=== PATIENT | male | born 1960 | race American Indian/Alaskan Native ===

== ENCOUNTER 2017-05-07 16:36 | Emergency (ER) | payer MEDICARE ==
--- NOTE | 2017-05-07 17:08 | Emergency Department Report ---
Entered by MIGUELITO AMANDA, acting as scribe for HENRY MC NP. Chief Complaint: Abdominal Pain Stated Complaint: STOMACH PAIN/CHEST ACID REFLEX Time Seen by Provider: 05/07/17 16:53 - HPI History of Present Illness: 56 year old male s non-toxic, non ill appearing, in no acute distress with c/o burning abd pain, epigastric pain, and chronic GERD. Aggravated while laying down. Patient reports abd pain and chest pain but denies fever, chills, SOB, HOWARD or dizziness, numbness, and tingling. - ROS Review of Systems: Reports abd pain, epigastric pain, GERD, chest pain Denies fever, chills, SOB, HOWARD or dizziness, numbness, and tingling - Exam Vital Signs: Vital Signs 05/07/17 16:44 Temperature 98.1 F Pulse Rate 87 Respiratory 18 Rate Blood Pressure 119/80 O2 Sat by Pulse 98 Oximetry Physical Exam: Constitutional: Non toxic appearing, NAD. Cardiovascular: Normal rate and rhythm with normal S1/S2 sounds. No reproducible Chest pain. Respiratory: No respiratory distress. Lung sounds clear to auscultation bilaterally. Abdomen: Slight abdominal distended. Positive bowel sounds. No hepatosplenomegaly was noted. No guarding or rebound tenderness, epigastric pain present. Negative psoas sign, negative caceres sign, negative McBurneys sign MSE screening note: Focused history and physical exam performed. Due to findings the following was ordered: Amylase, BMP, Cardiac Ck/CKBM, D-dimer, Hepatic panel, lipase, Pro-brain Natriuretic, and Troponin was ordered for patient. ED Disposition for MSE Condition: Stable This documentation as recorded by the scribe,MIGUELITO AMANDA,accurately reflects the service I personally performed and the decisions made by JESUSITA saenz MARTIN, LINDSEY.
[2017-05-07 18:16] LABS: Basophils % (Auto) 0.3 % (0.0-1.8); Hemoglobin 13.2 gm/dl (11.8-15.2); Mean Corpuscular HGB Conc 34 % (32-34); Mean Corpuscular Hemoglobin 31 pg (28-32); Mean Corpuscular Volume 90 fl (84-94); Platelet Count 169 K/mm3 (140-440); Red Blood Count 4.32 M/mm3 (3.65-5.03); Red Cell Distribution Width 14.2 % (13.2-15.2); White Blood Count 7.2 K/mm3 (4.5-11.0)
[2017-05-07] MEDS ORDERED: PEPCID PO ONE (18:24)
[2017-05-07] MEDS ORDERED: ZOFRAN IV ONE (18:25)
[2017-05-07] MEDS ORDERED: MORPHINE IV ONE (18:26)
[2017-05-07 18:39] LABS: Alanine Aminotransferase 20 units/L (7-56); Albumin 4.1 g/dL (3.9-5); Albumin/Globulin Ratio 1.4 %; Alkaline Phosphatase 75 units/L (35-129); Amylase 74 units/L (27-131); Anion Gap 18 mmol/L; BUN/Creatinine Ratio 14.44; Blood Urea Nitrogen 13 mg/dL (9-20); Calcium 9.2 mg/dL (8.4-10.2); Carbon Dioxide 26 mmol/L (22-30); Chloride 101.2 mmol/L (98-107); Creatine Kinase 421 units/L (55-170); Creatine Kinase MB 2.5 ng/mL (0.0-4.0); Glucose 87 mg/dL (75-100); Lipase 44 units/L (13-60); Potassium 4.3 mmol/L (3.6-5.0); Sodium 141 mmol/L (137-145); Total Protein 7.1 g/dL (6.3-8.2)
[2017-05-07 19:00] LABS: Bilirubin,Direct < 0.2 mg/dL (0-0.2); Bilirubin,Indirect 0.2 mg/dL
--- NOTE | 2017-05-07 19:15 | Emergency Department Report ---
ED Abdominal Pain HPI - General Chief Complaint: Abdominal Pain Stated Complaint: STOMACH PAIN/CHEST ACID REFLEX Time Seen by Provider: 05/07/17 18:20 Source: patient Mode of arrival: Ambulatory Limitations: No Limitations - History of Present Illness Initial Comments: 56-year-old male with past medical history of acid reflux, CHF presenting to the emergency room complaining of abdominal pain. pain started 1 day prior. No inciting factors. Pain is located in left upper quadrant and radiates towards epigastric area. Patient states he has had acid reflux for years and was supposed to follow up with GI however he has been lost to follow-up. Patient states he ran out of his antacids. Patient states pains are dull intermittent cramping. Pain improves with food, worse when he is hungry. Patient's requesting to eat in ED because he states that'll improve his pain. Patient denies midsternal chest pain. Patient denies pain radiates to the back. Patient denies: fever, chills, nausea, vomiting, diarrhea. Patient denies bloody stools. Patient states he has chronic leg swelling that has not been getting worse over the last weeks. Patient denies orthopnea, dyspnea on exertion, chest pain. MD Complaint: abdominal pain -: Gradual, days(s) Location: LUQ Radiation: epigastric Severity: mild Severity scale (0 -10): 5 Quality: cramping Consistency: intermittent Improves With: eating Worsens With: nothing Associated Symptoms: denies: nausea, vomiting, diarrhea, constipation, hematemesis, hematochezia, anorexia - Related Data Home Medications Medication Instructions Recorded Confirmed Last Taken Allopurinol [Zyloprim] 100 mg PO QDAY 04/16/16 04/16/16 Unknown Esomeprazole Magnesium [NexIUM] 40 mg PO QDAY 04/16/16 04/16/16 Unknown Fluticasone/Salmeterol [Advair 1 puff IH BID 04/16/16 04/16/16 Unknown Diskus 100-50 mcg] Furosemide [Lasix TAB] 80 mg PO QDAY 04/16/16 04/16/16 Unknown Previous Rx's Medication Instructions Recorded Last Taken Type Pantoprazole [Protonix] 40 mg PO QDAY #30 tablet 05/07/17 Unknown Rx Allergies Allergy/AdvReac Type Severity Reaction Status Date / Time No Known Allergies Allergy Unverified 04/15/16 12:49 ED Review of Systems ROS: Stated complaint: STOMACH PAIN/CHEST ACID REFLEX Other details as noted in HPI Comment: All other systems reviewed and negative Constitutional: denies: chills, fever Eyes: denies: eye pain, eye discharge, vision change ENT: denies: ear pain, throat pain Respiratory: denies: cough, shortness of breath, wheezing Cardiovascular: denies: chest pain, palpitations Endocrine: no symptoms reported Gastrointestinal: abdominal pain. denies: nausea, vomiting, diarrhea, constipation, hematemesis, hematochezia, other Genitourinary: denies: urgency, dysuria Musculoskeletal: denies: back pain, joint swelling, arthralgia Skin: denies: rash, lesions Neurological: denies: headache, weakness, paresthesias Psychiatric: denies: anxiety, depression Hematological/Lymphatic: denies: easy bleeding, easy bruising ED Past Medical Hx - Past Medical History Previous Medical History?: Yes Hx Hypertension: Yes Hx GERD: Yes Hx Psychiatric Treatment: Yes (Substance abuse) - Surgical History Past Surgical History?: No - Social History Smoking Status: Current Every Day Smoker - Medications Home Medications: Home Medications Medication Instructions Recorded Confirmed Last Taken Type Allopurinol [Zyloprim] 100 mg PO QDAY 04/16/16 04/16/16 Unknown History Esomeprazole Magnesium [NexIUM] 40 mg PO QDAY 04/16/16 04/16/16 Unknown History Fluticasone/Salmeterol [Advair 1 puff IH BID 04/16/16 04/16/16 Unknown History Diskus 100-50 mcg] Furosemide [Lasix TAB] 80 mg PO QDAY 04/16/16 04/16/16 Unknown History Pantoprazole [Protonix] 40 mg PO QDAY #30 tablet 05/07/17 Unknown Rx ED Physical Exam - General Limitations: No Limitations General appearance: alert, in no apparent distress - Head Head exam: Present: atraumatic, normocephalic - Eye Eye exam: Present: normal appearance - ENT ENT exam: Present: mucous membranes moist - Neck Neck exam: Present: normal inspection - Respiratory Respiratory exam: Present: normal lung sounds bilaterally. Absent: respiratory distress - Cardiovascular Cardiovascular Exam: Present: regular rate, normal rhythm. Absent: systolic murmur, diastolic murmur, rubs, gallop - GI/Abdominal GI/Abdominal exam: Present: soft, normal bowel sounds, other (pt has obsese abdomen, no fluid wave ). Absent: distended, tenderness, guarding, rebound, hyperactive bowel sounds, hypoactive bowel sounds, organomegaly, pulsatile mass - Rectal Rectal exam: Present: deferred - Extremities Exam Extremities exam: Present: normal inspection - Back Exam Back exam: Present: normal inspection - Neurological Exam Neurological exam: Present: alert, oriented X3 - Psychiatric Psychiatric exam: Present: normal affect, normal mood - Skin Skin exam: Present: warm, dry, intact, normal color. Absent: rash ED Course Vital Signs 05/07/17 05/07/17 05/07/17 16:44 17:37 17:41 Temperature 98.1 F Pulse Rate 87 82 81 Respiratory 18 28 H 18 Rate Blood Pressure 119/80 Blood Pressure [Right] O2 Sat by Pulse 98 99 100 Oximetry 05/07/17 05/07/17 05/07/17 17:46 17:51 18:01 Temperature Pulse Rate 79 79 Respiratory 12 14 29 H Rate Blood Pressure Blood Pressure [Right] O2 Sat by Pulse 100 100 92 Oximetry 05/07/17 05/07/17 05/07/17 18:11 18:21 18:31 Temperature Pulse Rate 77 81 76 Respiratory 23 19 19 Rate Blood Pressure Blood Pressure [Right] O2 Sat by Pulse 91 95 99 Oximetry 05/07/17 05/07/17 05/07/17 18:51 19:01 19:11 Temperature Pulse Rate 81 75 70 Respiratory 18 17 14 Rate Blood Pressure Blood Pressure [Right] O2 Sat by Pulse 96 86 97 Oximetry 05/07/17 05/07/17 05/07/17 19:21 19:31 19:41 Temperature Pulse Rate 78 77 74 Respiratory 18 18 16 Rate Blood Pressure Blood Pressure [Right] O2 Sat by Pulse 99 100 100 Oximetry 05/07/17 05/07/17 05/07/17 19:51 20:01 20:24 Temperature 98.1 F Pulse Rate 72 71 132 H Respiratory 18 17 12 Rate Blood Pressure Blood Pressure 132/86 [Right] O2 Sat by Pulse 91 98 98 Oximetry - Reevaluation(s) Reevaluation #1: 05/07/17 19:15 Patient resting comfortably. Reevaluation #2: 05/07/17 19:38 pt states discomfort has resolved, he agrees he is stable to dc home ED Medical Decision Making - Lab Data Result diagrams: 05/07/17 17:24 05/07/17 17:24 - EKG Data EKG shows normal: sinus rhythm, axis (upright ), intervals (normal : [place]. QRS ), QRS complexes (NORMAL ), ST-T waves (non specific T wave abnormality ) Rate: normal (86) - EKG Data When compared to previous EKG there are: no significant change Interpretation: no acute changes, nonspecific ST-T wave rody - Radiology Data Radiology results: image reviewed interpreted by me: no acute findings. No evidence of air under the diaphragm, or air-fluid levels. - Medical Decision Making 56 yo male sent into the emergency room complaining of left upper quadrant pain. Likely pain secondary to gastritis. I have lows suspicion for : ACS, Dissection, PNA, perforated ulcer. Pt admits this pain is similar to chronic reflux and gastritis. Pt agrees he stable to discharge home and follow-up with PCP, and GI. Patient verbalized understanding of return precautions. Critical care attestation.: If time is entered above; I have spent that time in minutes in the direct care of this critically ill patient, excluding procedure time. ED Disposition Clinical Impression: Gastritis, GERD (gastroesophageal reflux disease) Disposition: DC-01 TO HOME OR SELFCARE Is pt being admited?: No Does the pt Need Aspirin: No Condition: Stable Instructions: Gastritis (ED), Gastroesophageal Reflux in Children (ED) Prescriptions: Pantoprazole [Protonix] 40 mg PO QDAY #30 tablet Referrals: EMANUEL LEON JR, MD [Referring] - 3-5 Days PRIMARY CARE, [Primary Care Provider] - 3-5 Days Forms: Work/School Release Form(ED) Time of Disposition: 20:00
[2017-05-07 20:25] VITALS: BP 132/86
--- NOTE | 2017-05-08 07:25 | XRay Report ---
Abdominal series: History: Abdominal pain. Findings: No acute cardiopulmonary findings. No free intraperitoneal air. No bowel distention or wall thickening. Stool in colon. Impression: Essentially negative study.
== END 2017-05-07 20:23 | disposition home or self-care (01) ==
LOC: ED 16:36
DX: K29.70 Gastritis, unspecified, without bleeding (principal); K21.9 Gastro-esophageal reflux disease without esophagitis; I10 Essential (primary) hypertension; F17.200 Nicotine dependence, unspecified, uncomplicated
CPT/HCPCS: 36415; 74022; 80048; 80074; 82150; 82550; 82553; 83690; 83880; 84484; 85025; 93005; 93010; 96374; 96375; 99284; J2270; J2405

== ENCOUNTER 2017-05-28 22:45 | Emergency (ER) | payer MEDICARE ==
[2017-05-28] MEDS ORDERED: LIDOCAINE VISCOUS 2% PO ONE (23:04)
[2017-05-28] MEDS ORDERED: ALUM-MAG HYDROX-SIMETH 200-200-20MG/5ML PO ONE (23:05)
[2017-05-28] MEDS ORDERED: PEPCID PO ONE (23:05)
[2017-05-28 23:42] LABS: Basophils % (Auto) 0.4 % (0.0-1.8); Hematocrit 36.6 % (35.5-45.6); Hemoglobin 12.3 gm/dl (11.8-15.2); Mean Corpuscular HGB Conc 34 % (32-34); Mean Corpuscular Hemoglobin 31 pg (28-32); Mean Corpuscular Volume 93 fl (84-94); Platelet Count 176 K/mm3 (140-440); Red Blood Count 3.92 M/mm3 (3.65-5.03); Red Cell Distribution Width 14.7 % (13.2-15.2); White Blood Count 7.5 K/mm3 (4.5-11.0)
[2017-05-29 00:01] LABS: Lipase 46 units/L (13-60)
[2017-05-29 00:03] LABS: Alanine Aminotransferase 45 units/L (7-56); Albumin 3.9 g/dL (3.9-5); Albumin/Globulin Ratio 1.3 %; Alkaline Phosphatase 76 units/L (35-129); Amylase 66 units/L (27-131); Anion Gap 17 mmol/L; BUN/Creatinine Ratio 13.33; Blood Urea Nitrogen 12 mg/dL (9-20); Calcium 8.9 mg/dL (8.4-10.2); Carbon Dioxide 24 mmol/L (22-30); Chloride 101.8 mmol/L (98-107); Glucose 102 mg/dL (75-100); Lipase 46 units/L (13-60); Potassium 4.2 mmol/L (3.6-5.0); Sodium 139 mmol/L (137-145); Total Protein 6.9 g/dL (6.3-8.2)
[2017-05-29 00:04] LABS: Urine Drugs of Abuse Note Disclamer
[2017-05-29 00:10] LABS: Bilirubin,Direct < 0.2 mg/dL (0-0.2)
[2017-05-29 00:15] LABS: Bacteria,Urine 1+ /HPF (Negative); Bilirubin,Urine NEG (Negative); Blood,Urine MOD (Negative); Ketones,Urine NEG (Negative); Leukocyte Esterase,Urine SM (Negative); Mucus,Urine 1+ /HPF; Nitrite,Urine NEG (Negative); Protein,Urine <15 mg/dL mg/dL (Negative); Urobilinogen,Urine < 2.0 mg/dL (<2.0)
--- NOTE | 2017-05-29 04:27 | Emergency Department Report ---
HPI - General Chief Complaint: Abdominal Pain Time Seen by Provider: 05/29/17 02:06 - HPI HPI: This is a 56-year-old -French male presents to the emergency department with the complaint of acute on chronic acid reflux. He's been having a burning pain and sensation in the middle of the abdomen that sometimes will go up into the chest. Patient says that when he is sleeping sometimes he will have the acid come up into the back of his throat. He was recently here for similar symptoms and had an evaluation by [facility] and cardiology. He has been set up to have an appointment with gastroenterology but it is not until June. The patient is currently living at [place] and says that he needs prescriptions for [id number] medications for his acid reflux. He denies any shortness of breath, nausea, fever, back pain. No recent travel. ED Past Medical Hx - Past Medical History Hx Hypertension: Yes Hx GERD: Yes Hx Psychiatric Treatment: Yes (Substance abuse) - Social History Smoking Status: Current Every Day Smoker Substance Use Type: None - Medications Home Medications: Home Medications Medication Instructions Recorded Confirmed Last Taken Type Allopurinol [Zyloprim] 100 mg PO QDAY 04/16/16 05/21/17 05/20/17 History Esomeprazole Magnesium [NexIUM] 40 mg PO QDAY 04/16/16 05/21/17 05/20/17 History Fluticasone/Salmeterol [Advair 1 puff IH BID 04/16/16 05/21/17 05/20/17 History Diskus 100-50 mcg] Carvedilol [Coreg] 3.125 mg PO BID #60 tablet 05/23/17 Unknown Rx Furosemide [Lasix TAB] 40 mg PO QDAY #30 tablet 05/23/17 Unknown Rx Lisinopril [Zestril TAB] 2.5 mg PO QDAY #30 tab 05/23/17 Unknown Rx Nicotine [Habitrol] 14 mg TD Q24H #30 patch 05/23/17 Unknown Rx Potassium Chloride 10 meq PO QDAY #30 capsule.er 05/23/17 Unknown Rx Mag Hydrox/Al Hydrox/Simeth 10 ml PO BID PRN #1 bottle 05/29/17 Unknown Rx [Maalox Advanced Suspension] Pantoprazole [Protonix TAB] 40 mg PO QDAY #30 tablet 05/29/17 Unknown Rx ED Review of Systems ROS: Stated complaint: SEVERE ACID REFLUX Other details as noted in HPI Comment: All other systems reviewed and negative Constitutional: denies: chills, fever Eyes: denies: eye pain, eye discharge, vision change ENT: denies: ear pain, throat pain Respiratory: denies: cough, shortness of breath, wheezing Cardiovascular: denies: palpitations, edema Gastrointestinal: abdominal pain. denies: nausea Genitourinary: denies: urgency, dysuria Musculoskeletal: denies: back pain, joint swelling, arthralgia Skin: denies: rash, lesions Neurological: denies: headache, weakness, paresthesias Physical Exam - Physical Exam Vital Signs: Vital Signs 05/28/17 05/29/17 22:54 02:10 Temperature 98 F Pulse Rate 75 72 Respiratory 18 20 Rate Blood Pressure 137/85 Blood Pressure 109/74 [Left] O2 Sat by Pulse 97 99 Oximetry Physical Exam: GENERAL: The patient is well-developed well-nourished. HEENT: Normocephalic. Atraumatic. Extraocular motions are intact. Patient has moist mucous membranes. Pupils equal reactive to light bilaterally. NECK: Supple. Trachea is midline. CHEST/LUNGS: Clear to auscultation. There is no respiratory distress noted. HEART/CARDIOVASCULAR: Regular. There is no tachycardia. There is no gallop rub or murmur. Obese habitus. ABDOMEN: Abdomen is soft, nontender. Patient has normal bowel sounds. There is no abdominal distention. SKIN: Skin is warm and dry. NEURO: The patient is awake, alert, and oriented. The patient is cooperative. The patient has no focal neurologic deficits. The patient has normal speech. MUSCULOSKELETAL: There is no tenderness or deformity. There is no limitation range of motion. There is no evidence of acute injury. ED Course Vital Signs 05/28/17 05/29/17 22:54 02:10 Temperature 98 F Pulse Rate 75 72 Respiratory 18 20 Rate Blood Pressure 137/85 Blood Pressure 109/74 [Left] O2 Sat by Pulse 97 99 Oximetry ED Medical Decision Making - Lab Data Result diagrams: 05/28/17 23:26 05/28/17 23:26 - EKG Data -: EKG Interpreted by Me EKG shows normal: sinus rhythm (with PACs), axis, intervals, QRS complexes, ST- T waves Rate: normal - EKG Data When compared to previous EKG there are: previous EKG unavailable Interpretation: normal EKG - Radiology Data Radiology results: image reviewed interpreted by me: Chest x-ray did not show any acute process. Heart is normal shape and size. No effusions. No pneumothorax. No signs of pneumonia seen. - Medical Decision Making 56-year-old male presents to the emergency department with acute on chronic acid reflux. It affects him in the middle of the abdomen and goes up in the middle of his chest and sometimes he will even regurgitate some of the accident to the back of the throat. He was recently here and seen and had an echocardiogram and cardio consultation to rule out coronary artery disease as the cause of his discomfort. He is set up to have a gastroenterology follow-up and [place]. Today the patient was evaluated with physical exam, labs, imaging and EKG. EKG does not show any signs of ST elevation TN, ischemia or dysrhythmia. Labs are mostly unremarkable do not show any etiology of his symptoms. He does have a urine drug screen is positive for morbid she rates and cocaine. He was given a GI cocktail and upon reevaluation he is feeling improved. He needs prescriptions for any [id number] medications such as Maalox. Negative troponins 2. He has been encouraged to return to the emergency department with any worsening of his symptoms or any acute distress. - Differential Diagnosis GERD, TN, gastritis, esophagitis Critical Care Time: No Critical care attestation.: If time is entered above; I have spent that time in minutes in the direct care of this critically ill patient, excluding procedure time. ED Disposition Clinical Impression: Epigastric pain, Cocaine abuse GERD (gastroesophageal reflux disease) Qualifiers: Esophagitis presence: esophagitis presence not specified Qualified Code(s): K21.9 - Gastro-esophageal reflux disease without esophagitis Disposition: DC-01 TO HOME OR SELFCARE Is pt being admited?: No Condition: Stable Instructions: Gastroesophageal Reflux Disease (ED), Diet for Ulcers and Gastritis (ED) Additional Instructions: Please follow-up with a primary care physician in the next few days. Try to move up your gastroenterology appointment if possible. Return to the emergency department with any worsening of your symptoms or any acute distress. Prescriptions: Mag Hydrox/Al Hydrox/Simeth [Maalox Advanced Suspension] 10 ml PO BID PRN #1 bottle PRN Reason: Indigestion Pantoprazole [Protonix TAB] 40 mg PO QDAY #30 tablet Referrals: PRIMARY CARE, [Primary Care Provider] - 3-5 Days ANSELMO WILKS MD [Staff Physician] - 3-5 Days OSVALDO HERNANDEZ MD [Staff Physician] - 3-5 Days Time of Disposition: 04:31
[2017-05-29 04:44] VITALS: BP 124/75
--- NOTE | 2017-05-29 07:13 | XRay Report ---
CHEST XRAY, 2 VIEWS: History: Chest pain. Findings: There is mild diffuse interstitial coarsening. The lungs are hyperexpanded but clear. No infiltrate, pleural fluid or pneumothorax is detected. The cardiac silhouette and pulmonary vasculature are within normal limits for technique. The bony thorax is unremarkable. IMPRESSION: Changes consistent with COPD. No acute cardiopulmonary process.
== END 2017-05-29 04:35 | disposition home or self-care (01) ==
LOC: ED 22:45
DX: K21.9 Gastro-esophageal reflux disease without esophagitis (principal); R10.13 Epigastric pain; F14.10 Cocaine abuse, uncomplicated; I10 Essential (primary) hypertension; F17.200 Nicotine dependence, unspecified, uncomplicated
CPT/HCPCS: 36415; 71020; 80048; 80074; 80307; 81001; 82150; 83690; 84484; 85025; 93005; 93010

== ENCOUNTER 2017-08-06 16:23 | Emergency (ER) | payer MEDICARE ==
[2017-08-07] MEDS ORDERED: FLEXERIL PO ONE (02:07)
[2017-08-07] MEDS ORDERED: NORCO 7.5/325 PO ONE (02:07)
[2017-08-07] MEDS ORDERED: XYLOCAINE 1% MPF 5 mL INFILTRATI ONE (02:08)
--- NOTE | 2017-08-07 02:41 | Emergency Department Report ---
ED Lac[facility] Chief Complaint: Extremity Injury, Upper Stated Complaint: FINGER LAC ED Review of Systems ROS: Stated complaint: FINGER LAC Other details as noted in HPI ED Past Medical Hx - Past Medical History Hx Hypertension: Yes Hx GERD: Yes Hx Psychiatric Treatment: Yes (Substance abuse) - Surgical History Past Surgical History?: No - Social History Smoking Status: Current Every Day Smoker Substance Use Type: None - Medications Home Medications: Home Medications Medication Instructions Recorded Confirmed Last Taken Type Allopurinol [Zyloprim] 100 mg PO QDAY 04/16/16 05/21/17 05/20/17 History Esomeprazole Magnesium [NexIUM] 40 mg PO QDAY 04/16/16 05/21/17 05/20/17 History Fluticasone/Salmeterol [Advair 1 puff IH BID 04/16/16 05/21/17 05/20/17 History Diskus 100-50 mcg] Carvedilol [Coreg] 3.125 mg PO BID #60 tablet 05/23/17 Unknown Rx Furosemide [Lasix TAB] 40 mg PO QDAY #30 tablet 05/23/17 Unknown Rx Lisinopril [Zestril TAB] 2.5 mg PO QDAY #30 tab 05/23/17 Unknown Rx Nicotine [Habitrol] 14 mg TD Q24H #30 patch 05/23/17 Unknown Rx Potassium Chloride 10 meq PO QDAY #30 capsule.er 05/23/17 Unknown Rx Mag Hydrox/Al Hydrox/Simeth 10 ml PO BID PRN #1 bottle 05/29/17 Unknown Rx [Maalox Advanced Suspension] Pantoprazole [Protonix TAB] 40 mg PO QDAY #30 tablet 05/29/17 Unknown Rx Cephalexin [Keflex] 500 mg PO Q12HR #10 cap 08/07/17 Unknown Rx Laceration Physical Exam - Exam General: Vital signs noted. No distress. Alert and acting appropriately. ED Course Vital Signs 08/06/17 16:43 Temperature 98 F Pulse Rate 90 Respiratory 18 Rate Blood Pressure 112/79 O2 Sat by Pulse 96 Oximetry - Laceration /Wound Repair Right Posterior Distal Finger Wound Location: upper extremity (right middle finger) Wound Length (cm): 2 Wound's Depth, Shape: superficial Wound Explored: clean Irrigated w/ Saline (ccs): 50 Betadine Prep?: Yes Anesthesia: 1% Lidocaine Volume Anesthetic (ccs): 5 Wound Debrided: minimal Wound Repaired With: sutures Suture Size/Type: 5:0, proline Number of Sutures: 3 Layer Closure?: No Sterile Dressing Applied?: Yes Progress: patient tolerated procedure well Critical care attestation.: If time is entered above; I have spent that time in minutes in the direct care of this critically ill patient, excluding procedure time. ED Disposition Clinical Impression: Laceration of finger of right hand Disposition: DC-01 TO HOME OR SELFCARE Condition: Stable Instructions: Finger Laceration (ED) Additional Instructions: Please return within 7-10 days for suture removal Prescriptions: Cephalexin [Keflex] 500 mg PO Q12HR #10 cap Referrals: PRIMARY CARE, [Primary Care Provider] - 2-3 Days
[2017-08-07] MEDS ORDERED: TRIPLE ANTIBIOTIC TP ONE (04:03)
--- NOTE | 2017-08-07 04:56 | XRay Report ---
FINAL REPORT PROCEDURE: XR FINGER(S) 2+V RT TECHNIQUE: RIGHT middle finger radiographs, including AP, lateral, and oblique views. HISTORY: laceration, swelling COMPARISON: No prior studies are available for comparison. FINDINGS: Fracture (s) and/or Dislocation(s): None . Alignment: Normal. Joint space(s): Normal . Soft tissues: Normal . Bone mineralization: Normal . Foreign bodies: None . IMPRESSION: Normal Examination
[2017-08-07 05:11] VITALS: BP 114/82
== END 2017-08-07 04:49 | disposition home or self-care (01) ==
LOC: ED 16:23
DX: S61.212A Laceration without foreign body of right middle finger without damage to nail, initial encounter (principal); I10 Essential (primary) hypertension; K21.9 Gastro-esophageal reflux disease without esophagitis; F17.200 Nicotine dependence, unspecified, uncomplicated; W45.8XXA Other foreign body or object entering through skin, initial encounter; Y93.89 Activity, other specified; Y92.89 Other specified places as the place of occurrence of the external cause; Y99.8 Other external cause status
CPT/HCPCS: A6250

== ENCOUNTER 2017-08-15 10:45 | Emergency (ER) | payer MEDICARE ==
[2017-08-15 11:02] VITALS: BP 126/82
--- NOTE | 2017-08-15 16:17 | Emergency Department Report ---
Suture/Staple Removal - [facility] Chief Complaint: Laceration/Recheck/Suture Stated Complaint: REMOVAL OF STITCHES FROM MIDDLE FINGER Time Seen by Provider: 08/15/17 15:54 When Sutures or [place] Placed: 8-10 Days Ago Wound Location: right middle finger no drainage no erythema rom intact ED Review of Systems ROS: Stated complaint: REMOVAL OF STITCHES FROM MIDDLE FINGER Other details as noted in HPI Constitutional: denies: chills, fever Eyes: denies: eye pain, eye discharge, vision change ENT: denies: ear pain, throat pain Respiratory: denies: cough, shortness of breath, wheezing Cardiovascular: denies: chest pain, palpitations Endocrine: no symptoms reported Gastrointestinal: denies: abdominal pain, nausea, diarrhea Genitourinary: denies: urgency, dysuria Musculoskeletal: denies: back pain, joint swelling, arthralgia Skin: denies: rash, lesions Neurological: denies: headache, weakness, paresthesias Psychiatric: denies: anxiety, depression Hematological/Lymphatic: denies: easy bleeding, easy bruising ED Past Medical Hx - Past Medical History Previous Medical History?: Yes Hx Hypertension: Yes Hx GERD: Yes Hx Psychiatric Treatment: Yes (Substance abuse) - Surgical History Past Surgical History?: No - Social History Smoking Status: Current Every Day Smoker Substance Use Type: None - Medications Home Medications: Home Medications Medication Instructions Recorded Confirmed Last Taken Type Allopurinol [Zyloprim] 100 mg PO QDAY 04/16/16 05/21/17 05/20/17 History Esomeprazole Magnesium [NexIUM] 40 mg PO QDAY 04/16/16 05/21/17 05/20/17 History Fluticasone/Salmeterol [Advair 1 puff IH BID 04/16/16 05/21/17 05/20/17 History Diskus 100-50 mcg] Carvedilol [Coreg] 3.125 mg PO BID #60 tablet 05/23/17 Unknown Rx Furosemide [Lasix TAB] 40 mg PO QDAY #30 tablet 05/23/17 Unknown Rx Lisinopril [Zestril TAB] 2.5 mg PO QDAY #30 tab 05/23/17 Unknown Rx Nicotine [Habitrol] 14 mg TD Q24H #30 patch 05/23/17 Unknown Rx Potassium Chloride 10 meq PO QDAY #30 capsule.er 05/23/17 Unknown Rx Mag Hydrox/Al Hydrox/Simeth 10 ml PO BID PRN #1 bottle 05/29/17 Unknown Rx [Maalox Advanced Suspension] Pantoprazole [Protonix TAB] 40 mg PO QDAY #30 tablet 05/29/17 Unknown Rx Cephalexin [Keflex] 500 mg PO Q12HR #10 cap 08/07/17 Unknown Rx Suture Removal Exam - Exam General: Vital signs noted. No distress. Alert and acting appropriately. Wound: No Pathologic Erythema, No Tenderness, No Drainage, No Pus, No Wound Dehiscence Other Systems: All other systems reviewed and are unremarkable. ED Course Vital Signs 08/15/17 10:59 Temperature 98 F Pulse Rate 86 Respiratory 18 Rate Blood Pressure 126/82 O2 Sat by Pulse 99 Oximetry ED Recheck MDM - Medical Decision Making right finger sutures x 3 removed intact wound healed edges well approximated no drainage no symptoms of infection Critical care attestation.: If time is entered above; I have spent that time in minutes in the direct care of this critically ill patient, excluding procedure time. ED Disposition Clinical Impression: Visit for suture removal Disposition: DC-01 TO HOME OR SELFCARE Is pt being admited?: No Does the pt Need Aspirin: No Condition: Good Referrals: PRIMARY CARE, [Primary Care Provider] - 3-5 Days Forms: Work/School Release Form(ED) Time of Disposition: 16:16
== END 2017-08-15 16:25 | disposition home or self-care (01) ==
LOC: ED 10:45
DX: S61.212D Laceration without foreign body of right middle finger without damage to nail, subsequent encounter (principal)

== ENCOUNTER 2017-09-17 16:42 | Emergency (ER) | payer MEDICARE ==
[2017-09-17 17:39] LABS: Urine Drugs of Abuse Note Disclamer
[2017-09-17 17:49] LABS: Basophils % (Auto) 0.6 % (0.0-1.8); Hemoglobin 12.9 gm/dl (11.8-15.2); Mean Corpuscular HGB Conc 34 % (32-34); Mean Corpuscular Hemoglobin 32 pg (28-32); Mean Corpuscular Volume 93 fl (84-94); Platelet Count 163 K/mm3 (140-440); Red Blood Count 4.07 M/mm3 (3.65-5.03); Red Cell Distribution Width 15.1 % (13.2-15.2); White Blood Count 8.7 K/mm3 (4.5-11.0)
[2017-09-17 17:54] LABS: Bacteria,Urine 1+ /HPF (Negative); Bilirubin,Urine NEG (Negative); Blood,Urine MOD (Negative); Ketones,Urine NEG (Negative); Leukocyte Esterase,Urine NEG (Negative); Mucus,Urine 3+ /HPF; Nitrite,Urine NEG (Negative); Protein,Urine <15 mg/dL mg/dL (Negative)
[2017-09-17 18:12] LABS: Anion Gap 19 mmol/L; BUN/Creatinine Ratio 13; Blood Urea Nitrogen 10 mg/dL (9-20); Calcium 8.7 mg/dL (8.4-10.2); Carbon Dioxide 23 mmol/L (22-30); Chloride 103.9 mmol/L (98-107); Glucose 149 mg/dL (75-100); Potassium 3.7 mmol/L (3.6-5.0); Sodium 142 mmol/L (137-145)
[2017-09-18] MEDS ORDERED: PROVENTIL IH ONE (03:05)
[2017-09-18] MEDS ORDERED: ATROVENT IH ONE (03:05)
--- NOTE | 2017-09-18 03:08 | Emergency Department Report ---
ED Psych HPI - General Chief Complaint: Psych Stated Complaint: MED REACTION, DEPRESSION/VOICES Time Seen by Provider: 09/18/17 02:44 Source: patient Mode of arrival: Ambulatory - History of Present Illness MD Complaint: suicidal ideation -: unknown Associated Psychiatric Symptoms: auditory hallucinations History of same: Yes Quality: intermittent Improves With: medication Worsens With: achohol, drug use Context: recent alcohol abuse, recent drug abuse - Related Data Home Medications Medication Instructions Recorded Confirmed Last Taken Allopurinol [Zyloprim] 100 mg PO QDAY 04/16/16 09/17/17 05/20/17 Esomeprazole Magnesium [NexIUM] 40 mg PO QDAY 04/16/16 09/17/17 05/20/17 Fluticasone/Salmeterol [Advair 1 puff IH BID 04/16/16 09/17/17 05/20/17 Diskus 100-50 mcg] Previous Rx's Medication Instructions Recorded Last Taken Type Carvedilol [Coreg] 3.125 mg PO BID #60 tablet 05/23/17 Unknown Rx Furosemide [Lasix TAB] 40 mg PO QDAY #30 tablet 05/23/17 Unknown Rx Lisinopril [Zestril TAB] 2.5 mg PO QDAY #30 tab 05/23/17 Unknown Rx Nicotine [Habitrol] 14 mg TD Q24H #30 patch 05/23/17 Unknown Rx Potassium Chloride 10 meq PO QDAY #30 capsule.er 05/23/17 Unknown Rx Mag Hydrox/Aluminum Hyd/Simeth 10 ml PO BID PRN #1 bottle 05/29/17 Unknown Rx [Maalox Advanced Suspension] Pantoprazole [Protonix TAB] 40 mg PO QDAY #30 tablet 05/29/17 Unknown Rx Cephalexin [Keflex] 500 mg PO Q12HR #10 cap 08/07/17 Unknown Rx Allergies Allergy/AdvReac Type Severity Reaction Status Date / Time No Known Allergies Allergy Unverified 08/15/17 11:01 ED Review of Systems ROS: Stated complaint: MED REACTION, DEPRESSION/VOICES Other details as noted in HPI Constitutional: denies: chills, fever Eyes: denies: eye pain, eye discharge, vision change ENT: denies: ear pain, throat pain Respiratory: denies: cough, shortness of breath, wheezing Cardiovascular: denies: chest pain, palpitations Endocrine: no symptoms reported Gastrointestinal: denies: abdominal pain, nausea, diarrhea Genitourinary: denies: urgency, dysuria Musculoskeletal: denies: back pain, joint swelling, arthralgia Skin: denies: rash, lesions Neurological: denies: headache, weakness, paresthesias Psychiatric: denies: anxiety, depression Hematological/Lymphatic: denies: easy bleeding, easy bruising ED Past Medical Hx - Past Medical History Previous Medical History?: Yes Hx Hypertension: Yes Hx GERD: Yes Hx Psychiatric Treatment: Yes (Substance abuse) - Surgical History Past Surgical History?: No - Social History Smoking Status: Current Every Day Smoker Substance Use Type: Alcohol, Cocaine - Medications Home Medications: Home Medications Medication Instructions Recorded Confirmed Last Taken Type Allopurinol [Zyloprim] 100 mg PO QDAY 04/16/16 09/17/17 05/20/17 History Esomeprazole Magnesium [NexIUM] 40 mg PO QDAY 04/16/16 09/17/17 05/20/17 History Fluticasone/Salmeterol [Advair 1 puff IH BID 04/16/16 09/17/17 05/20/17 History Diskus 100-50 mcg] Carvedilol [Coreg] 3.125 mg PO BID #60 tablet 05/23/17 09/17/17 Unknown Rx Furosemide [Lasix TAB] 40 mg PO QDAY #30 tablet 05/23/17 09/17/17 Unknown Rx Lisinopril [Zestril TAB] 2.5 mg PO QDAY #30 tab 05/23/17 09/17/17 Unknown Rx Nicotine [Habitrol] 14 mg TD Q24H #30 patch 05/23/17 09/17/17 Unknown Rx Potassium Chloride 10 meq PO QDAY #30 capsule.er 05/23/17 09/17/17 Unknown Rx Mag Hydrox/Aluminum Hyd/Simeth 10 ml PO BID PRN #1 bottle 05/29/17 09/17/17 Unknown Rx [Maalox Advanced Suspension] Pantoprazole [Protonix TAB] 40 mg PO QDAY #30 tablet 05/29/17 09/17/17 Unknown Rx Cephalexin [Keflex] 500 mg PO Q12HR #10 cap 08/07/17 09/17/17 Unknown Rx ED Physical Exam - General Limitations: No Limitations General appearance: alert, in no apparent distress - Head Head exam: Present: atraumatic, normocephalic - Eye Eye exam: Present: normal appearance - ENT ENT exam: Present: mucous membranes moist - Neck Neck exam: Present: normal inspection - Respiratory Respiratory exam: Present: normal lung sounds bilaterally, wheezes. Absent: accessory muscle use, decreased breath sounds - Cardiovascular Cardiovascular Exam: Present: regular rate, normal rhythm. Absent: systolic murmur, diastolic murmur, rubs, gallop - GI/Abdominal GI/Abdominal exam: Present: soft, normal bowel sounds - Rectal Rectal exam: Present: deferred - Extremities Exam Extremities exam: Present: normal inspection - Back Exam Back exam: Present: normal inspection - Neurological Exam Neurological exam: Present: alert, oriented X3 - Psychiatric Psychiatric exam: Present: normal affect, normal mood - Skin Skin exam: Present: warm, dry, intact, normal color. Absent: rash ED Course Vital Signs 09/17/17 17:08 Temperature 97.6 F Pulse Rate 65 Respiratory 16 Rate Blood Pressure 119/71 O2 Sat by Pulse 97 Oximetry ED Medical Decision Making - Lab Data Result diagrams: 09/17/17 17:19 09/17/17 17:19 Critical care attestation.: If time is entered above; I have spent that time in minutes in the direct care of this critically ill patient, excluding procedure time. ED Disposition Clinical Impression: Suicidal ideation, Cocaine abuse, Alcohol abuse, Medical clearance for psychiatric admission Disposition: DC/TX-70 ANOTHER TYPE HLTHCARE Is pt being admited?: Yes Does the pt Need Aspirin: No Condition: Stable Referrals: BARTOLO FLORES MD [Other] - 3-5 Days Time of Disposition: 07:15 (anchor here to evaluate and admit pt)
--- NOTE | 2017-09-18 03:38 | XRay Report ---
FINAL REPORT EXAM: XR CHEST 1V AP HISTORY: SOB COMPARISON: None available. FINDINGS: Frontal view(s) of the chest obtained. Heart borderline enlarged. Shallow inspiration. No gross consolidation or effusion. No pneumothorax. IMPRESSION: Heart borderline enlarged. Lungs are grossly clear.
--- NOTE | 2017-09-18 22:37 | Consultation ---
History of Present Illness - Reason for Consult Reason for consult: recently missed invega sustenna shot Medications and Allergies Allergies Allergy/AdvReac Type Severity Reaction Status Date / Time No Known Allergies Allergy Unverified 08/15/17 11:01 Home Medications Medication Instructions Recorded Confirmed Last Taken Type Allopurinol [Zyloprim] 100 mg PO QDAY 04/16/16 09/17/17 05/20/17 History Esomeprazole Magnesium [NexIUM] 40 mg PO QDAY 04/16/16 09/17/17 05/20/17 History Fluticasone/Salmeterol [Advair 1 puff IH BID 04/16/16 09/17/17 05/20/17 History Diskus 100-50 mcg] Carvedilol [Coreg] 3.125 mg PO BID #60 tablet 05/23/17 09/17/17 Unknown Rx Furosemide [Lasix TAB] 40 mg PO QDAY #30 tablet 05/23/17 09/17/17 Unknown Rx Lisinopril [Zestril TAB] 2.5 mg PO QDAY #30 tab 05/23/17 09/17/17 Unknown Rx Nicotine [Habitrol] 14 mg TD Q24H #30 patch 05/23/17 09/17/17 Unknown Rx Potassium Chloride 10 meq PO QDAY #30 capsule.er 05/23/17 09/17/17 Unknown Rx Mag Hydrox/Aluminum Hyd/Simeth 10 ml PO BID PRN #1 bottle 05/29/17 09/17/17 Unknown Rx [Maalox Advanced Suspension] Pantoprazole [Protonix TAB] 40 mg PO QDAY #30 tablet 05/29/17 09/17/17 Unknown Rx Cephalexin [Keflex] 500 mg PO Q12HR #10 cap 08/07/17 09/17/17 Unknown Rx Mental Status Exam - Vital signs Last Vital Signs Temp 98.9 F 09/18/17 19:55 Pulse 55 L 09/18/17 19:55 Resp 16 09/18/17 19:55 BP 121/84 09/18/17 19:55 Pulse Ox 98 09/18/17 19:55 Results Result Diagrams: 09/17/17 17:19 09/17/17 17:19 All other labs normal. Assessment and Plan Assessment and plan: CHIEF COMPLAINT IN PATIENTS WORDS: missed my invega shot HISTORY OF PRESENT ILLNESS REQUIRING ADMISSION TO INPATIENT LEVEL OF CARE: (Describe the onset of Illness, Intensity of Symptoms, and Circumstances Leading to Admission) This is a 56-year-old male who presents to [facility] after missing his invega sustenna shot and subsequently having increased sleep disturbance and psychotic symptoms. PSYCHIATRIC REVIEW OF SYSTEMS: Depression: poor sleep onset Psychosis: +AH Anxiety/ OCD/ PTSD: nightmares Suicidality: denies SI Violent/ Aggressive Behavior: None reported Functional Impairment: difficulty remaining independent in his snf CURRENT MEDICATIONS: ( Psychiatric and Non-psychiatric ) Invega Sustenna Vistaril ALLERGIES: NKDA PAST PSYCHIATRIC HISTORY: ( Prior Treatment, Precipitating Factors, Diagnosis, and Course of Treatment ) Inpatient: multiple previous hospitalizations Outpatient: [facility] Prior Self Injurious Behaviors: none Prior Suicide Attempts: unknown PAST PSYCHIATRIC MEDICATION TRIALS: second generation antipsychotics Mood stabilizers MEDICAL HISTORY: (Chronic and Acute Illnesses, Current Medical Treatment, Recent Hospitalizations) none HISTORY OF TRAUMA/ABUSE: Denies DRUG / ALCOHOL ABUSE HISTORY: recent cocaine use 1 week ago Detoxification / Withdrawal: no withdrawal symptoms noted on clinical examination SOCIAL HISTORY: (Educational Level, Employment, Support System, Interpersonal Relationships) FAMILY HISTORY:Psychiatric/Substance Abuse Unknown MENTAL STATUS EXAM: Consciousness: alert and responding to external stimuli General Appearance: Well groomed Eye Contact: Good Attitude / Behavior: Cooperative Sensorium: Clear Psychomotor & Musculoskeletal Activity: WNL Mood: Depressed Affect: Flat Speech / Language: Normal Thought Processes: perseverative Thought Content: no SI, no HI Perception: No AVH Orientation: person, place, time, date, situation Concentration/Attention: Impaired Judgment What would you do if you smelled smoke in a crowded movie theater?: Poor Insight: Poor Intelligence Vocabulary, general fund of knowledge, educational level : Average Capacity of ADLs: Independent ADMITTING DIAGNOSES Schizophrenia PLAN: Observe for 24 hours and rescind 1013 tomorrow Refer to PHP at the [facility] Coordinate the administration of [facility]vega sustenna [facility]
--- NOTE | 2017-09-19 11:54 | Progress Note ---
Subjective - Reason for Consult Consult date: 09/19/17 Reason for consult: Psychiatry Follow-up - Chief Complaint Chief complaint: "My name is all the [employer] buses" This is a 56-year-old male who presents to [facility] after missing his invega sustenna shot and subsequently having increased sleep disturbance and psychotic symptoms. Today patient is calm, but disorganized and delusional during the assessment. He stated that his "name" is on all the [employer] buses in the [place] area and want to kill a [employer] employee. When asked who and why he wants to kill a [employer] employee, he would stare at me and speak in a incoherent manner. He stated hearing voices, but cannot say what's being said. He stated receiving the Invega injection at [facility]. He denies SI's and VH's. Mental Status Exam - Vital signs Last Vital Signs Temp 98.9 F 09/18/17 19:55 Pulse 55 L 09/18/17 19:55 Resp 16 09/18/17 19:55 BP 121/84 09/18/17 19:55 Pulse Ox 98 09/18/17 19:55 - Exam Narrative exam: MSE: Appearance: calm Behavior: regular eye contact Speech: intermittent incoherent speaking Mood: "upset" Affect: labile Thought Process: tangential Thought Content: denies SI's and VH's, disorganized, delusional Motor Activity: ambulatory Cognition: A/Ox 3 Insight: poor Judgment: poor Assessment and Plan Impression: Schizophrenia. Today patient is calm, but disorganized and delusional during the assessment. Patient endorse HI's without a plan. Recommendation/Plan: Continue 1013 with placement to inpatient psy services. Start Risperdal 0.5 mg PO HS for schizophrenia and Cogentin 0.5 mg PO HS for EPS prevention. Discussed possible metabolic side effects of Risperdal with patient.
[2017-09-19] MEDS: COGENTIN PO SCH (22:05)
[2017-09-19] MEDS: RisperDAL PO SCH (22:05)
[2017-09-20 03:01] VITALS: BP 108/59
--- NOTE | 2017-09-20 14:20 | Progress Note ---
Subjective - Reason for Consult Consult date: 09/20/17 Reason for consult: Psychiatry Follow-up - Chief Complaint Chief complaint: "[employer] is my problem" This is a 56-year-old male who presents to [facility] after missing his invega sustenna shot and subsequently having increased sleep disturbance and psychotic symptoms. Today patient is calm, but still disorganized and delusional during the assessment. He is fixated about [employer] causing him "problems." The patient cannot elaborate more about his concerns with [employer]. He denies SI/HI's and AVH' s. Mental Status Exam - Vital signs Last Vital Signs Temp 98.5 F 09/20/17 10:35 Pulse 65 09/20/17 10:35 Resp 20 09/20/17 12:58 BP 108/59 09/20/17 10:35 Pulse Ox 95 09/20/17 10:35 - Exam Narrative exam: MSE: Appearance: calm Behavior: regular eye contact Speech: intermittent incoherent speaking Mood: "okay" Affect: labile Thought Process: tangential Thought Content: denies SI/HI's and AVH's, disorganized, delusional Motor Activity: ambulatory Cognition: A/Ox 3 Insight: poor Judgment: poor Assessment and Plan Impression: Schizophrenia. Today patient is calm, but still disorganized and delusional during the assessment. Recommendation/Plan: Continue 1013 with placement to [facility] today. Continue Risperdal 0.5 mg PO HS for schizophrenia and Cogentin 0.5 mg PO HS for EPS prevention. Discussed possible metabolic side effects of Risperdal with patient.
[2017-09-20] MEDS: RisperDAL PO SCH (22:18)
[2017-09-20] MEDS: COGENTIN PO SCH (22:18)
== END 2017-09-20 23:26 | disposition other institution (70) ==
LOC: ED 16:42 → EEVIPCON 16:42 → ED 09-20 23:26
DX: R45.851 Suicidal ideations (principal); F14.10 Cocaine abuse, uncomplicated; F10.10 Alcohol abuse, uncomplicated; I10 Essential (primary) hypertension; K21.9 Gastro-esophageal reflux disease without esophagitis; F17.200 Nicotine dependence, unspecified, uncomplicated
CPT/HCPCS: 36415; 71010; 80048; 80307; 81001; 85025; 99285; G0480; 80320

== ENCOUNTER 2017-10-16 15:42 | Emergency (ER) | payer MEDICARE ==
[2017-10-16 16:04] VITALS: BP 149/104
[2017-10-16 17:04] LABS: Basophils % (Auto) 0.5 % (0.0-1.8); Hematocrit 41.4 % (35.5-45.6); Hemoglobin 13.4 gm/dl (11.8-15.2); Mean Corpuscular HGB Conc 32 % (32-34); Mean Corpuscular Hemoglobin 31 pg (28-32); Mean Corpuscular Volume 95 fl (84-94); Platelet Count 163 K/mm3 (140-440); Red Blood Count 4.37 M/mm3 (3.65-5.03); Red Cell Distribution Width 15.1 % (13.2-15.2); White Blood Count 7.3 K/mm3 (4.5-11.0)
[2017-10-16 17:05] LABS: Urine Drugs of Abuse Note Disclamer
[2017-10-16 17:08] LABS: Anion Gap 18 mmol/L; BUN/Creatinine Ratio 17; Blood Urea Nitrogen 12 mg/dL (9-20); Calcium 8.7 mg/dL (8.4-10.2); Carbon Dioxide 23 mmol/L (22-30); Chloride 103.8 mmol/L (98-107); Glucose 89 mg/dL (75-100); Potassium 3.8 mmol/L (3.6-5.0); Sodium 141 mmol/L (137-145)
[2017-10-16 17:30] LABS: Bilirubin,Urine NEG (Negative); Blood,Urine MOD (Negative); Ketones,Urine NEG (Negative); Leukocyte Esterase,Urine TR (Negative); Mucus,Urine 2+ /HPF; Nitrite,Urine NEG (Negative); Protein,Urine <15 mg/dL mg/dL (Negative)
--- NOTE | 2017-10-16 21:08 | Emergency Department Report ---
ED Psych HPI - General Chief Complaint: Psych Stated Complaint: MEDICAL CLEARANCE,DRUGS Time Seen by Provider: 10/16/17 20:57 Source: patient Mode of arrival: Ambulatory - History of Present Illness Initial Comments: 57 years old male history of schizophrenia and substance abuse mainly cocaine, he presented today asking for drug rehabilitation, patient stated that he has been using cocaine daily since August. He was in rehabilitation few months back but he relapsed. Patient stated that he is hearing voices talking into his head and it is children voices. He stated that he get very irritating when he had this voices. Patient denied any suicidal ideation or homicidal ideation. Associated Psychiatric Symptoms: racing thoughts, auditory hallucinations Quality: constant Improves With: none Context: recent drug abuse Associated Symptoms: denies other symptoms - Related Data Home Medications Medication Instructions Recorded Confirmed Last Taken Allopurinol [Zyloprim] 100 mg PO QDAY 04/16/16 09/17/17 05/20/17 Esomeprazole Magnesium [NexIUM] 40 mg PO QDAY 04/16/16 09/17/17 05/20/17 Fluticasone/Salmeterol [Advair 1 puff IH BID 04/16/16 09/17/17 05/20/17 Diskus 100-50 mcg] Previous Rx's Medication Instructions Recorded Last Taken Type Carvedilol [Coreg] 3.125 mg PO BID #60 tablet 05/23/17 Unknown Rx Furosemide [Lasix TAB] 40 mg PO QDAY #30 tablet 05/23/17 Unknown Rx Lisinopril [Zestril TAB] 2.5 mg PO QDAY #30 tab 05/23/17 Unknown Rx Nicotine [Habitrol] 14 mg TD Q24H #30 patch 05/23/17 Unknown Rx Potassium Chloride 10 meq PO QDAY #30 capsule.er 05/23/17 Unknown Rx Mag Hydrox/Aluminum Hyd/Simeth 10 ml PO BID PRN #1 bottle 05/29/17 Unknown Rx [Maalox Advanced Suspension] Pantoprazole [Protonix TAB] 40 mg PO QDAY #30 tablet 05/29/17 Unknown Rx Cephalexin [Keflex] 500 mg PO Q12HR #10 cap 08/07/17 Unknown Rx Allergies Allergy/AdvReac Type Severity Reaction Status Date / Time No Known Allergies Allergy Verified 10/16/17 16:01 ED Review of Systems ROS: Stated complaint: MEDICAL CLEARANCE,DRUGS Other details as noted in HPI Comment: All other systems reviewed and negative Constitutional: denies: chills, fever Respiratory: denies: cough, shortness of breath, SOB with exertion, SOB at rest Cardiovascular: denies: chest pain, palpitations, dyspnea on exertion, edema, syncope, paroxysmal nocturnal dyspnea Gastrointestinal: denies: abdominal pain, nausea, vomiting, diarrhea, constipation Psychiatric: anxiety, auditory hallucinations. denies: visual hallucinations, homicidal thoughts, suicidal thoughts ED Past Medical Hx - Past Medical History Hx Hypertension: Yes Hx GERD: Yes Hx Psychiatric Treatment: Yes (Substance abuse) - Social History Smoking Status: Current Every Day Smoker Substance Use Type: Alcohol, Cocaine - Medications Home Medications: Home Medications Medication Instructions Recorded Confirmed Last Taken Type Allopurinol [Zyloprim] 100 mg PO QDAY 04/16/16 09/17/17 05/20/17 History Esomeprazole Magnesium [NexIUM] 40 mg PO QDAY 04/16/16 09/17/17 05/20/17 History Fluticasone/Salmeterol [Advair 1 puff IH BID 04/16/16 09/17/17 05/20/17 History Diskus 100-50 mcg] Carvedilol [Coreg] 3.125 mg PO BID #60 tablet 05/23/17 09/17/17 Unknown Rx Furosemide [Lasix TAB] 40 mg PO QDAY #30 tablet 05/23/17 09/17/17 Unknown Rx Lisinopril [Zestril TAB] 2.5 mg PO QDAY #30 tab 05/23/17 09/17/17 Unknown Rx Nicotine [Habitrol] 14 mg TD Q24H #30 patch 05/23/17 09/17/17 Unknown Rx Potassium Chloride 10 meq PO QDAY #30 capsule.er 05/23/17 09/17/17 Unknown Rx Mag Hydrox/Aluminum Hyd/Simeth 10 ml PO BID PRN #1 bottle 05/29/17 09/17/17 Unknown Rx [Maalox Advanced Suspension] Pantoprazole [Protonix TAB] 40 mg PO QDAY #30 tablet 05/29/17 09/17/17 Unknown Rx Cephalexin [Keflex] 500 mg PO Q12HR #10 cap 08/07/17 09/17/17 Unknown Rx ED Physical Exam - General Limitations: No Limitations General appearance: alert, in no apparent distress - Head Head exam: Present: atraumatic, normocephalic - Eye Eye exam: Present: normal appearance - ENT ENT exam: Present: normal exam, normal orophraynx, mucous membranes moist - Neck Neck exam: Present: normal inspection, full ROM. Absent: tenderness, meningismus - Respiratory Respiratory exam: Present: normal lung sounds bilaterally. Absent: respiratory distress, wheezes, rales, rhonchi, stridor, decreased breath sounds, prolonged expiratory - Cardiovascular Cardiovascular Exam: Present: regular rate, normal rhythm, normal heart sounds - GI/Abdominal GI/Abdominal exam: Present: soft, normal bowel sounds. Absent: distended, tenderness, guarding, rebound, rigid, mass, pulsatile mass, hernia - Back Exam Back exam: Present: normal inspection. Absent: tenderness, CVA tenderness (R), CVA tenderness (L) - Psychiatric Psychiatric exam: Present: anxious. Absent: normal mood, depressed, agitated, flat affect, manic, homicidal ideation, suicidal ideation - Skin Skin exam: Present: warm, intact, normal color ED Course Vital Signs 10/16/17 16:02 Temperature 97.5 F L Pulse Rate 78 Respiratory 18 Rate Blood Pressure 149/104 O2 Sat by Pulse 99 Oximetry - Reevaluation(s) Reevaluation #1: 10/17/17 00:18 Patient is being assessed by mental health personnel. She spoke to remove the roots and accepted the patient to be admitted to their facility, she advised patient can be discharged to go to the [facility]. ED Medical Decision Making - Lab Data Result diagrams: 10/16/17 16:28 10/16/17 16:28 Critical care attestation.: If time is entered above; I have spent that time in minutes in the direct care of this critically ill patient, excluding procedure time. ED Disposition Clinical Impression: Cocaine abuse Disposition: DC/TX-65 PSY HOSP/PSY UNIT Is pt being admited?: No Condition: Stable Instructions: Medical Clearance for Substance Abuse Treatment (ED) Additional Instructions: Please go straight to [facility].
== END 2017-10-17 00:25 ==
LOC: ED 15:42
DX: R44.0 Auditory hallucinations (principal); F14.10 Cocaine abuse, uncomplicated; I10 Essential (primary) hypertension; K21.9 Gastro-esophageal reflux disease without esophagitis; F17.200 Nicotine dependence, unspecified, uncomplicated
CPT/HCPCS: 36415; 80048; 80307; 81001; 85025; 99285; G0480; 80320

== ENCOUNTER 2017-12-25 16:10 | Emergency (ER) | payer MEDICARE ==
[2017-12-25 17:31] LABS: Bilirubin,Urine NEG (Negative); Blood,Urine MOD (Negative); Color,Urine Yellow (Yellow); Mucus,Urine 3+ /HPF; Nitrite,Urine NEG (Negative)
[2017-12-25 17:40] LABS: Amphetamine Screen,Urine PRESUMPTIVE NEGATIVE; Benzodiazepines Screen,Urine PRESUMPTIVE NEGATIVE; Cannabinoid Screen,Urine PRESUMPTIVE NEGATIVE; Methadone Screen,Urine PRESUMPTIVE NEGATIVE; Opiate Screen,Urine PRESUMPTIVE NEGATIVE
[2017-12-25 17:58] LABS: Cocaine Screen,Urine PRESUMPTIVE POSITIVE
[2017-12-25 18:44] LABS: Basophils % (Auto) 0.4 % (0.0-1.8); Eosinophils # (Auto) 0.1 K/mm3 (0.0-0.4); Eosinophils % (Auto) 0.6 % (0.0-4.3); Hematocrit 40.6 % (35.5-45.6); Hemoglobin 13.5 gm/dl (11.8-15.2); Lymphocytes # (Auto) 2.5 K/mm3 (1.2-5.4); Lymphocytes % (Auto) 26.9 % (13.4-35.0); Mean Corpuscular HGB Conc 33 % (32-34); Mean Corpuscular Hemoglobin 31 pg (28-32); Mean Corpuscular Volume 94 fl (84-94); Monocytes % (Auto) 11.2 % (0.0-7.3); Platelet Count 172 K/mm3 (140-440); Red Blood Count 4.33 M/mm3 (3.65-5.03); Red Cell Distribution Width 14.7 % (13.2-15.2)
[2017-12-25 19:01] LABS: BUN/Creatinine Ratio 15; Blood Urea Nitrogen 9 mg/dL (9-20); Calcium 8.8 mg/dL (8.4-10.2); Hemolysis Index 28
--- NOTE | 2017-12-25 21:25 | Emergency Department Report ---
ED Psych HPI - General Chief Complaint: Psych Stated Complaint: PSYCHE/HEARING VOICES Time Seen by Provider: 12/25/17 21:00 Source: patient Mode of arrival: Ambulatory - History of Present Illness Initial Comments: Patient is a 57-year-old male that presents to emergency room with complaints of hearing voices times one day and suicidal ideations 1 day. Patient states the voices are telling him to kill himself. Patient states he wants to run on traffic in order to stop the voices. Patient states he was smoking a cigarette last night and one of his buddies laced with cocaine. States ever since he smoked a cigarette filled with cocaine he has been hearing voices since. MD Complaint: suicidal ideation, feels depressed -: Sudden Associated Psychiatric Symptoms: suicidal ideation, racing thoughts, auditory hallucinations History of same: Yes Quality: constant Improves With: medication, therapy Worsens With: none, drug use Context: recent drug abuse Associated Symptoms: denies other symptoms Treatments Prior to Arrival: placed on mental he If Self Harm: admits thoughts of, has plan - Related Data Home Medications Medication Instructions Recorded Confirmed Last Taken Allopurinol [Zyloprim] 100 mg PO QDAY 04/16/16 12/25/17 05/20/17 Esomeprazole Magnesium [NexIUM] 40 mg PO QDAY 04/16/16 12/25/17 05/20/17 Fluticasone/Salmeterol [Advair 1 puff IH BID 04/16/16 12/25/17 05/20/17 Diskus 100-50 mcg] Previous Rx's Medication Instructions Recorded Last Taken Type Carvedilol [Coreg] 3.125 mg PO BID #60 tablet 05/23/17 Unknown Rx Furosemide [Lasix TAB] 40 mg PO QDAY #30 tablet 05/23/17 Unknown Rx Lisinopril [Zestril TAB] 2.5 mg PO QDAY #30 tab 05/23/17 Unknown Rx Nicotine [Habitrol] 14 mg TD Q24H #30 patch 05/23/17 Unknown Rx Potassium Chloride 10 meq PO QDAY #30 capsule.er 05/23/17 Unknown Rx Mag Hydrox/Aluminum Hyd/Simeth 10 ml PO BID PRN #1 bottle 05/29/17 Unknown Rx [Maalox Advanced Suspension] Pantoprazole [Protonix TAB] 40 mg PO QDAY #30 tablet 05/29/17 Unknown Rx Cephalexin [Keflex] 500 mg PO Q12HR #10 cap 08/07/17 Unknown Rx Allergies Allergy/AdvReac Type Severity Reaction Status Date / Time No Known Allergies Allergy Verified 10/16/17 16:01 ED Review of Systems ROS: Stated complaint: PSYCHE/HEARING VOICES Other details as noted in HPI Comment: All other systems reviewed and negative Constitutional: denies: chills, fever Eyes: denies: eye pain, eye discharge, vision change ENT: denies: ear pain, throat pain Respiratory: denies: cough, shortness of breath, wheezing Cardiovascular: denies: chest pain, palpitations Endocrine: no symptoms reported Gastrointestinal: denies: abdominal pain, nausea, diarrhea Genitourinary: denies: urgency, dysuria Musculoskeletal: denies: back pain, joint swelling, arthralgia Skin: denies: rash, lesions Neurological: denies: headache, weakness, paresthesias Psychiatric: depression, auditory hallucinations, suicidal thoughts. denies: anxiety Hematological/Lymphatic: denies: easy bleeding, easy bruising ED Past Medical Hx - Past Medical History Previous Medical History?: Yes Hx Hypertension: Yes Hx GERD: Yes Hx Psychiatric Treatment: Yes (Substance abuse) - Surgical History Past Surgical History?: No - Family History Family history: no significant - Social History Smoking Status: Current Every Day Smoker Substance Use Type: Alcohol, Cocaine - Medications Home Medications: Home Medications Medication Instructions Recorded Confirmed Last Taken Type Allopurinol [Zyloprim] 100 mg PO QDAY 04/16/16 12/25/17 05/20/17 History Esomeprazole Magnesium [NexIUM] 40 mg PO QDAY 04/16/16 12/25/17 05/20/17 History Fluticasone/Salmeterol [Advair 1 puff IH BID 04/16/16 12/25/17 05/20/17 History Diskus 100-50 mcg] Carvedilol [Coreg] 3.125 mg PO BID #60 tablet 05/23/17 12/25/17 Unknown Rx Furosemide [Lasix TAB] 40 mg PO QDAY #30 tablet 05/23/17 12/25/17 Unknown Rx Lisinopril [Zestril TAB] 2.5 mg PO QDAY #30 tab 05/23/17 12/25/17 Unknown Rx Nicotine [Habitrol] 14 mg TD Q24H #30 patch 05/23/17 12/25/17 Unknown Rx Potassium Chloride 10 meq PO QDAY #30 capsule.er 05/23/17 12/25/17 Unknown Rx Mag Hydrox/Aluminum Hyd/Simeth 10 ml PO BID PRN #1 bottle 05/29/17 12/25/17 Unknown Rx [Maalox Advanced Suspension] Pantoprazole [Protonix TAB] 40 mg PO QDAY #30 tablet 05/29/17 12/25/17 Unknown Rx Cephalexin [Keflex] 500 mg PO Q12HR #10 cap 08/07/17 12/25/17 Unknown Rx ED Physical Exam - General Limitations: No Limitations General appearance: alert, in no apparent distress - Head Head exam: Present: atraumatic, normocephalic - Eye Eye exam: Present: normal appearance - ENT ENT exam: Present: mucous membranes moist - Neck Neck exam: Present: normal inspection - Respiratory Respiratory exam: Present: normal lung sounds bilaterally. Absent: respiratory distress - Cardiovascular Cardiovascular Exam: Present: regular rate, normal rhythm. Absent: systolic murmur, diastolic murmur, rubs, gallop - GI/Abdominal GI/Abdominal exam: Present: soft, normal bowel sounds - Rectal Rectal exam: Present: deferred - Extremities Exam Extremities exam: Present: normal inspection - Back Exam Back exam: Present: normal inspection - Neurological Exam Neurological exam: Present: alert, oriented X3 - Psychiatric Psychiatric exam: Present: normal affect, normal mood - Skin Skin exam: Present: warm, dry, intact, normal color. Absent: rash ED Course Vital Signs 12/25/17 16:35 Temperature 98.8 F Pulse Rate 77 Respiratory 18 Rate Blood Pressure 181/91 O2 Sat by Pulse 96 Oximetry ED Medical Decision Making - Lab Data Result diagrams: 12/25/17 18:28 12/25/17 18:28 - Medical Decision Making And 13 signed. Patient is medically cleared for psychiatric evaluation. Mental health eval pending. - Differential Diagnosis si, ah, hi, psychosis Critical care attestation.: If time is entered above; I have spent that time in minutes in the direct care of this critically ill patient, excluding procedure time. ED Disposition Clinical Impression: Suicidal ideation, Auditory hallucinations Disposition: DC/TX-65 PSY HOSP/PSY UNIT Is pt being admited?: No Does the pt Need Aspirin: No Condition: Stable Time of Disposition: :54
[2017-12-26] MEDS ORDERED: HABITROL TD SCH (05:00)
[2017-12-26] MEDS ORDERED: PULMICORT IH SCH (08:00)
[2017-12-26] MEDS ORDERED: BROVANA NEBU IH SCH (08:00)
[2017-12-26] MEDS ORDERED: ZYLOPRIM PO SCH (10:00)
[2017-12-26] MEDS ORDERED: ZESTRIL PO SCH (10:00)
[2017-12-26] MEDS ORDERED: LASIX PO SCH (10:00)
[2017-12-26] MEDS ORDERED: NON-FORMULARY (Fluticasone/Salmeterol [Advair Diskus 100-50 Mcg] 1 PUFF) IH SCH (10:00)
[2017-12-26] MEDS ORDERED: PROTONIX PO SCH (10:00)
[2017-12-26] MEDS ORDERED: K-DUR PO SCH (10:00)
[2017-12-26] MEDS: COREG PO SCH ×2 (18:41→21:40)
[2017-12-26 18:43] VITALS: BP 142/101
== END 2017-12-27 00:05 ==
LOC: ED 16:10 → EEVIPCON 16:10 → ED 12-27 00:05
DX: R45.851 Suicidal ideations (principal); R44.0 Auditory hallucinations; K21.9 Gastro-esophageal reflux disease without esophagitis; F17.200 Nicotine dependence, unspecified, uncomplicated
CPT/HCPCS: 36415; 80048; 80307; 81001; 85025; 99285; G0480; 80320

== ENCOUNTER 2018-01-13 14:11 | Emergency (ER) | payer MEDICARE ==
[2018-01-13 15:34] LABS: BUN/Creatinine Ratio 7; Blood Urea Nitrogen 5 mg/dL (9-20); Calcium 8.7 mg/dL (8.4-10.2); Hemolysis Index 53
[2018-01-13 15:36] LABS: Hematocrit 38.4 % (35.5-45.6); Hemoglobin 12.8 gm/dl (11.8-15.2); Mean Corpuscular HGB Conc 33 % (32-34); Mean Corpuscular Hemoglobin 31 pg (28-32); Mean Corpuscular Volume 94 fl (84-94); Red Blood Count 4.08 M/mm3 (3.65-5.03); Red Cell Distribution Width 14.6 % (13.2-15.2)
[2018-01-13 15:37] LABS: Basophils % (Auto) 0.5 % (0.0-1.8); Eosinophils # (Auto) 0.1 K/mm3 (0.0-0.4); Eosinophils % (Auto) 0.7 % (0.0-4.3); Lymphocytes # (Auto) 2.2 K/mm3 (1.2-5.4); Lymphocytes % (Auto) 27.4 % (13.4-35.0); Monocytes # (Auto) 0.9 K/mm3 (0.0-0.8); Monocytes % (Auto) 11.2 % (0.0-7.3)
[2018-01-13 15:53] LABS: Bilirubin,Urine NEG (Negative); Blood,Urine SM (Negative); Color,Urine Yellow (Yellow); Mucus,Urine 2+ /HPF; Protein,Urine <15 mg/dL mg/dL (Negative)
[2018-01-13 15:55] LABS: Amphetamine Screen,Urine PRESUMPTIVE NEGATIVE; Benzodiazepines Screen,Urine PRESUMPTIVE NEGATIVE; Cannabinoid Screen,Urine PRESUMPTIVE NEGATIVE; Methadone Screen,Urine PRESUMPTIVE NEGATIVE; Opiate Screen,Urine PRESUMPTIVE NEGATIVE
[2018-01-13 15:57] LABS: Cocaine Screen,Urine PRESUMPTIVE POSITIVE
[2018-01-13 16:16] LABS: Platelet Count 100 K/mm3 (140-440)
--- NOTE | 2018-01-13 19:08 | Emergency Department Report ---
ED Psych HPI - General Chief Complaint: Medical Clearance Stated Complaint: DETOX/DRUGS Time Seen by Provider: 01/13/18 18:53 Source: patient Mode of arrival: Ambulatory Limitations: No Limitations - History of Present Illness Initial Comments: Claims to have smoked a laced cigarette and from a friend, and then "got frustrated and kept using." states today that he wants to get help for drinks and alcohol. Had alcohol on Saturday. He admits to drinking this past week but drugs is his main problem. He denies THC, meth, heroin. Admits to crack cocaine. He was at [facility] about 2 years ago. States he is "between places" right now, is staying with someone who doesn't want him to stay there anymore. He admits to having been "clean" about 4 years ago, but then relapsed. No suicidal or homicidal when asked directly but apparently thinks that cars on the street may be trying to hit him. And apparently yesterday morning, he felt like jumping into traffic. He is a schizophrenic. -: Gradual Associated Psychiatric Symptoms: suicidal ideation History of same: Yes Quality: constant Improves With: none Worsens With: none Context: recent drug abuse Associated Symptoms: denies other symptoms Treatments Prior to Arrival: none If Self Harm: admits thoughts of (jumping into traffic) - Related Data Home Medications Medication Instructions Recorded Confirmed Last Taken Allopurinol [Zyloprim] 100 mg PO QDAY 04/16/16 12/25/17 05/20/17 Esomeprazole Magnesium [NexIUM] 40 mg PO QDAY 04/16/16 12/25/17 05/20/17 Fluticasone/Salmeterol [Advair 1 puff IH BID 04/16/16 12/25/17 05/20/17 Diskus 100-50 mcg] Previous Rx's Medication Instructions Recorded Last Taken Type Carvedilol [Coreg] 3.125 mg PO BID #60 tablet 05/23/17 Unknown Rx Furosemide [Lasix TAB] 40 mg PO QDAY #30 tablet 05/23/17 Unknown Rx Lisinopril [Zestril TAB] 2.5 mg PO QDAY #30 tab 05/23/17 Unknown Rx Nicotine [Habitrol] 14 mg TD Q24H #30 patch 05/23/17 Unknown Rx Potassium Chloride 10 meq PO QDAY #30 capsule.er 05/23/17 Unknown Rx Mag Hydrox/Aluminum Hyd/Simeth 10 ml PO BID PRN #1 bottle 05/29/17 Unknown Rx [Maalox Advanced Suspension] Pantoprazole [Protonix TAB] 40 mg PO QDAY #30 tablet 05/29/17 Unknown Rx Cephalexin [Keflex] 500 mg PO Q12HR #10 cap 08/07/17 Unknown Rx Allergies Allergy/AdvReac Type Severity Reaction Status Date / Time No Known Allergies Allergy Verified 10/16/17 16:01 ED Review of Systems ROS: Stated complaint: DETOX/DRUGS Other details as noted in HPI Comment: All other systems reviewed and negative Constitutional: no symptoms reported, see HPI Eyes: as per HPI ENT: as per HPI Respiratory: see HPI Cardiovascular: as per HPI Endocrine: no symptoms reported, see HPI Gastrointestinal: as per HPI Genitourinary: as per HPI Musculoskeletal: as per HPI Skin: as per HPI Neurological: as per HPI Psychiatric: as per HPI Hematological/Lymphatic: as per HPI ED Past Medical Hx - Past Medical History Previous Medical History?: Yes Hx Hypertension: Yes Hx GERD: Yes Hx Psychiatric Treatment: Yes (Substance abuse) - Surgical History Past Surgical History?: No - Social History Smoking Status: Current Every Day Smoker Substance Use Type: Cocaine - Medications Home Medications: Home Medications Medication Instructions Recorded Confirmed Last Taken Type Allopurinol [Zyloprim] 100 mg PO QDAY 04/16/16 12/25/17 05/20/17 History Esomeprazole Magnesium [NexIUM] 40 mg PO QDAY 04/16/16 12/25/17 05/20/17 History Fluticasone/Salmeterol [Advair 1 puff IH BID 04/16/16 12/25/17 05/20/17 History Diskus 100-50 mcg] Carvedilol [Coreg] 3.125 mg PO BID #60 tablet 05/23/17 12/25/17 Unknown Rx Furosemide [Lasix TAB] 40 mg PO QDAY #30 tablet 05/23/17 12/25/17 Unknown Rx Lisinopril [Zestril TAB] 2.5 mg PO QDAY #30 tab 05/23/17 12/25/17 Unknown Rx Nicotine [Habitrol] 14 mg TD Q24H #30 patch 05/23/17 12/25/17 Unknown Rx Potassium Chloride 10 meq PO QDAY #30 capsule.er 05/23/17 12/25/17 Unknown Rx Mag Hydrox/Aluminum Hyd/Simeth 10 ml PO BID PRN #1 bottle 05/29/17 12/25/17 Unknown Rx [Maalox Advanced Suspension] Pantoprazole [Protonix TAB] 40 mg PO QDAY #30 tablet 05/29/17 12/25/17 Unknown Rx Cephalexin [Keflex] 500 mg PO Q12HR #10 cap 08/07/17 12/25/17 Unknown Rx ED Physical Exam - General Limitations: No Limitations General appearance: alert, in no apparent distress - Head Head exam: Present: atraumatic - Eye Eye exam: Present: normal appearance, PERRL, EOMI - ENT ENT exam: Present: normal exam - Neck Neck exam: Present: normal inspection, tenderness, full ROM - Respiratory Respiratory exam: Present: wheezes (right upper and lower lobes). Absent: normal lung sounds bilaterally, respiratory distress, rales, rhonchi - Cardiovascular Cardiovascular Exam: Present: regular rate, normal rhythm, normal heart sounds - GI/Abdominal GI/Abdominal exam: Present: soft, normal bowel sounds. Absent: distended, tenderness, guarding, rebound, rigid - Extremities Exam Extremities exam: Present: normal inspection, full ROM, normal capillary refill - Back Exam Back exam: Present: normal inspection, full ROM - Neurological Exam Neurological exam: Present: alert, oriented X3, CN II-XII intact - Psychiatric Psychiatric exam: Present: normal affect - Skin Skin exam: Present: warm, dry, intact, normal color ED Course Vital Signs 01/13/18 01/13/18 01/13/18 14:18 18:55 21:04 Temperature 98.6 F Pulse Rate 64 Respiratory 20 16 Rate Blood Pressure 145/69 110/70 O2 Sat by Pulse 98 Oximetry - Reevaluation(s) Reevaluation #1: 01/13/18 19:36 Labs WNL, will get mental health to come and assess, will give duoneb for mild right sided expiratory wheezes, 1013 due to suicidal ideation. 01/13/18 23:07 ED Medical Decision Making - Lab Data Result diagrams: 01/13/18 15:04 01/13/18 15:04 Critical care attestation.: If time is entered above; I have spent that time in minutes in the direct care of this critically ill patient, excluding procedure time. ED Disposition Clinical Impression: Cocaine abuse, Suicidal ideation Schizophrenia Qualifiers: Schizophrenia type: other Qualified Code(s): F20.89 - Other schizophrenia Disposition: DC/TX-65 PSY HOSP/PSY UNIT Is pt being admited?: No Does the pt Need Aspirin: No Condition: Stable
--- NOTE | 2018-01-14 13:19 | Consultation ---
History of Present Illness - Reason for Consult Consult date: 01/14/18 Reason for consult: Mental Health Evaluation Requesting physician: JOLEEN COBB - Chief Complaint Chief complaint: "I don't know what's wrong with me" - History of Present Psychiatric Illness 57 y.o. AA male presenting to the ER because of SI's. Today the patient is calm , but disorganized during the assessment. He stated that he need to stay away from some friends who don't mean him well. The patient could not elaborate more about these friends. He could not confirm or deny AVH's when asked. He stated that he plan to walk into traffic yesterday, but couldn't explain why when asked. He did state that he smoked "lots" of cocaine yesterday. He stated that he receive the monthly Invega injection for Schizophrenia. The patient presented to [facility] in Dec 2017 with a similar presentation. He denies SI/HI's. He denies a sleep disturbance and a poor appetite. He denies alcohol consumption (etoh). Medications and Allergies Allergies Allergy/AdvReac Type Severity Reaction Status Date / Time No Known Allergies Allergy Verified 10/16/17 16:01 Home Medications Medication Instructions Recorded Confirmed Last Taken Type Allopurinol [Zyloprim] 100 mg PO QDAY 04/16/16 12/25/17 05/20/17 History Esomeprazole Magnesium [NexIUM] 40 mg PO QDAY 04/16/16 12/25/17 05/20/17 History Fluticasone/Salmeterol [Advair 1 puff IH BID 04/16/16 12/25/17 05/20/17 History Diskus 100-50 mcg] Carvedilol [Coreg] 3.125 mg PO BID #60 tablet 05/23/17 12/25/17 Unknown Rx Furosemide [Lasix TAB] 40 mg PO QDAY #30 tablet 05/23/17 12/25/17 Unknown Rx Lisinopril [Zestril TAB] 2.5 mg PO QDAY #30 tab 05/23/17 12/25/17 Unknown Rx Nicotine [Habitrol] 14 mg TD Q24H #30 patch 05/23/17 12/25/17 Unknown Rx Potassium Chloride 10 meq PO QDAY #30 capsule.er 05/23/17 12/25/17 Unknown Rx Mag Hydrox/Aluminum Hyd/Simeth 10 ml PO BID PRN #1 bottle 05/29/17 12/25/17 Unknown Rx [Maalox Advanced Suspension] Pantoprazole [Protonix TAB] 40 mg PO QDAY #30 tablet 05/29/17 12/25/17 Unknown Rx Cephalexin [Keflex] 500 mg PO Q12HR #10 cap 08/07/17 12/25/17 Unknown Rx Mental Status Exam - Vital signs Last Vital Signs Temp 97.5 F L 01/14/18 08:29 Pulse 86 01/14/18 08:29 Resp 16 01/14/18 08:29 BP 116/67 01/14/18 08:29 Pulse Ox 94 01/14/18 08:29 - Exam Narrative exam: MSE: Appearance: calm, cooperative, disheveled, malodorous Behavior: regular eye contact Speech: regular rate and tone Mood: "fine" Affect: congruent to mood Thought Process: circumstantial Thought Content: denies SI/HI's, cannot confirm or deny AVH's Motor Activity: lying in bed Cognition: A/O x3 Insight: poor Judgment: poor Results Result Diagrams: 01/13/18 15:04 01/13/18 15:04 Abnormal lab results 01/13/18 01/13/18 01/13/18 Range/Units 15:04 15:04 15:04 Plt Count (140-440) K/mm3 [place] % (Auto) (0.0-7.3) % [place] # (0.0-0.8) K/mm3 BUN 5 L (9-20) mg/dL Creatinine 0.7 L (0.8-1.5) mg/dL Salicylates < 0.3 L (2.8-20.0) mg/dL Acetaminophen < 5.0 L (10.0-30.0) ug/mL 01/13/18 Range/Units 15:04 Plt Count 100 L (140-440) K/mm3 [place] % (Auto) 11.2 H (0.0-7.3) % [place] # 0.9 H (0.0-0.8) K/mm3 BUN (9-20) mg/dL Creatinine (0.8-1.5) mg/dL Salicylates (2.8-20.0) mg/dL Acetaminophen (10.0-30.0) ug/mL All other labs normal. Assessment and Plan Assessment and plan: Impression: Unspecified Psychosis. Substance Use DO (cocaine). Today the patient is calm, but disorganized during the assessment. Hx of Schizophrenia per the patient DDx: R/O Bipolar DO, R/O Schizoaffective DO, R/O Substance Induced Psychosis Recommendation/Plan: Continue 1013 with placement to inpatient psy services. Start Risperdal 0.5 mg PO HS for psychosis. Discussed possible metabolic side effects of Risperdal with patient.
[2018-01-14] MEDS: RisperDAL PO SCH (22:09)
--- NOTE | 2018-01-15 18:04 | History and Physical Report ---
History of Present Illness Chief complaint: I dont know whats going on History of present illness: 57 YO Male with Nicotine Dependence, HTN, GERD, Obesity, Cocaine Dependence, PSA , Schizophrenia presents to ED for evaluation. Pt states that he has experienced Suicide Ideation, and that he thought of jumping into moving traffic in an effort to end his life. Pt seen and evaluated in ED and found to have SI and Polysubstance Abuse/Dependence, as well as Schizophrenia. Pt admitted to Medical service. No reported nursing events. Psychiatry consulted. Past History Past Medical History: GERD, hypertension Past Surgical History: No surgical history, Other (reviewed) Social history: single, smoking Family history: other (polysubstance abuse) Medications and Allergies Allergies Allergy/AdvReac Type Severity Reaction Status Date / Time No Known Allergies Allergy Verified 10/16/17 16:01 Home Medications Medication Instructions Recorded Confirmed Last Taken Type Allopurinol [Zyloprim] 100 mg PO QDAY 04/16/16 01/14/18 05/20/17 History Esomeprazole Magnesium [NexIUM] 40 mg PO QDAY 04/16/16 01/14/18 05/20/17 History Fluticasone/Salmeterol [Advair 1 puff IH BID 04/16/16 01/14/18 05/20/17 History Diskus 100-50 mcg] Carvedilol [Coreg] 3.125 mg PO BID #60 tablet 05/23/17 01/14/18 Unknown Rx Furosemide [Lasix TAB] 40 mg PO QDAY #30 tablet 05/23/17 01/14/18 Unknown Rx Lisinopril [Zestril TAB] 2.5 mg PO QDAY #30 tab 05/23/17 01/14/18 Unknown Rx Nicotine [Habitrol] 14 mg TD Q24H #30 patch 05/23/17 01/14/18 Unknown Rx Potassium Chloride 10 meq PO QDAY #30 capsule.er 05/23/17 01/14/18 Unknown Rx Mag Hydrox/Aluminum Hyd/Simeth 10 ml PO BID PRN #1 bottle 05/29/17 01/14/18 Unknown Rx [Maalox Advanced Suspension] Pantoprazole [Protonix TAB] 40 mg PO QDAY #30 tablet 05/29/17 01/14/18 Unknown Rx Cephalexin [Keflex] 500 mg PO Q12HR #10 cap 08/07/17 01/14/18 Unknown Rx Active Meds: Active Medications Risperidone (Risperdal) 0.5 mg PO HS [facility] Last Admin: 01/14/18 22:09 Dose: 0.5 mg Review of Systems ROS unobtainable: due to mental status Exam - Constitutional Vitals: Temp Pulse Resp BP Pulse Ox 98.5 F 60 16 106/69 95 01/15/18 08:18 01/15/18 08:18 01/15/18 08:19 01/15/18 08:18 01/15/18 08:19 General appearance: Present: no acute distress, obese - EENT Eyes: Present: PERRL ENT: hearing intact, clear oral mucosa - Neck Neck: Present: supple, normal ROM - Respiratory Respiratory effort: normal Respiratory: bilateral: CTA - Cardiovascular Heart Sounds: Present: S1 & S2. Absent: rub, click - Extremities Extremities: pulses symmetrical, No edema Peripheral Pulses: within normal limits - Abdominal General gastrointestinal: Present: soft, non-tender, non-distended, normal bowel sounds Male genitourinary: Present: normal - Integumentary Integumentary: Present: clear, warm, dry - Musculoskeletal Musculoskeletal: gait normal, strength equal bilaterally - Psychiatric Psychiatric: appropriate mood/affect, intact judgment & insight - Neurologic Neurologic: CNII-XII intact, moves all extremities Results - Labs CBC & Chem 7: 01/13/18 15:04 01/13/18 15:04 Assessment and Plan - Patient Problems (1) HTN (hypertension) Current Visit: Yes Status: Acute Qualifiers: Hypertension type: essential hypertension Qualified Code(s): I10 - Essential (primary) hypertension Plan to address problem: BP currently stable, continue to monitor. Pt current sytolic BP ranges from 100- 140 without medication. Normotensive when calm and resting. (2) GERD (gastroesophageal reflux disease) Current Visit: Yes Status: Acute Qualifiers: Esophagitis presence: without esophagitis Qualified Code(s): K21.9 - Gastro -esophageal reflux disease without esophagitis Plan to address problem: PPI therapy, (3) Cocaine abuse Current Visit: Yes Status: Acute Plan to address problem: Supportive care, No withdrawl symptoms at this time. (4) Schizophrenia Current Visit: Yes Status: Acute Qualifiers: Schizophrenia type: other Qualified Code(s): F20.89 - Other schizophrenia; F20.8 - Other schizophrenia Plan to address problem: Psychiatry consulted, continue risperdal (5) DVT prophylaxis Current Visit: Yes Status: Acute
[2018-01-15] MEDS: RisperDAL PO SCH (22:24)
--- NOTE | 2018-01-16 11:08 | Progress Note ---
Subjective - Reason for Consult Consult date: 01/16/18 Reason for consult: Psychiatry Follow-up - Chief Complaint Chief complaint: "I just want to stop using drugs" 57 y.o. AA male presenting to the ER because of SI's. Today the patient is calm and cooperative during the assessment. The patient is more organized with his thoughts today than the previous assessment. He stated that he "really" want to stop using drugs and get his life "straight." He stated that he would like to be sent to be transferred to a [facility] for substance abuse. He denies any side effects of his medication. He denies SI/HI's and AVH' s. Mental Status Exam - Vital signs Last Vital Signs Temp 97.6 F 01/15/18 20:17 Pulse 62 01/16/18 00:11 Resp 18 01/15/18 20:17 BP 130/74 01/16/18 00:11 Pulse Ox 100 01/15/18 20:17 - Exam Narrative exam: MSE: Appearance: calm, cooperative, disheveled Behavior: regular eye contact Speech: regular rate and tone Mood: "fine" Affect: congruent to mood Thought Process: circumstantial Thought Content: denies SI/HI's and AVH's Motor Activity: lying in bed Cognition: A/O x3 Insight: variable Judgment: variable Assessment and Plan Impression: Unspecified Psychosis. Substance Use DO (cocaine). Today the patient is calm and cooperative during the assessment. Hx of Schizophrenia per the patient DDx: R/O Bipolar DO, R/O Schizoaffective DO, R/O Substance Induced Psychosis Recommendation/Plan: Continue 1013 with placement to inpatient psy services. Continue Risperdal 0.5 mg PO HS for psychosis. Discussed possible metabolic side effects of Risperdal with patient.
--- NOTE | 2018-01-16 20:58 | Progress Note ---
Assessment and Plan Assessment and plan: 57 YO Male with Nicotine Dependence, HTN, GERD, Obesity, Cocaine Dependence, PSA , Schizophrenia presents to ED for evaluation. Pt states that he has experienced Suicide Ideation, and that he thought of jumping into moving traffic in an effort to end his life. Pt seen and evaluated in ED and found to have SI and Polysubstance Abuse/Dependence, as well as Schizophrenia. Pt admitted to Medical service. No reported nursing events. Psychiatry consulted. - Patient Problems (1) HTN (hypertension) Current Visit: Yes Status: Acute Qualifiers: Hypertension type: essential hypertension Qualified Code(s): I10 - Essential (primary) hypertension Plan to address problem: BP currently stable, continue to monitor. Pt current sytolic BP ranges from 100- 140 without medication. Normotensive when calm and resting. (2) GERD (gastroesophageal reflux disease) Current Visit: Yes Status: Acute Qualifiers: Esophagitis presence: without esophagitis Qualified Code(s): K21.9 - Gastro -esophageal reflux disease without esophagitis Plan to address problem: PPI therapy, (3) Cocaine abuse Current Visit: Yes Status: Acute Plan to address problem: Supportive care, No withdrawl symptoms at this time. Counselling provided 15 mins. (4) Schizophrenia Current Visit: Yes Status: Acute Qualifiers: Schizophrenia type: other Qualified Code(s): F20.89 - Other schizophrenia; F20.8 - Other schizophrenia Plan to address problem: Psychiatry consulted, continue risperdal Continue 1013 PER PSYCH (5) DVT prophylaxis Current Visit: Yes Status: Acute Plan discussed with the patient and also with Nursing staff. Patient with no evidence of hypoxia on room air. History Interval history: Patient seen and examined in no acute distress. Reports that he uses oxygen at home. Hospitalist Physical - Physical exam Narrative exam: VITAL SIGNS: Reviewed. GENERAL: The patient appeared well nourished and normally developed. Obese. Vital signs as documented. HEAD: No signs of head trauma. EYES: Pupils are equal. Extraocular motions intact. EARS: Hearing grossly intact. MOUTH: Oropharynx is normal. NECK: No adenopathy, no JVD. CHEST: Chest with clear breath sounds bilaterally. No wheezes, rales, or rhonchi. CARDIAC: Regular rate and rhythm. S1 and S2, without murmurs, gallops, or rubs. VASCULAR: No Edema. Peripheral pulses normal and equal in all extremities. ABDOMEN: Soft, without detectable tenderness. No sign of distention. No rebound or guarding, and no masses palpated. Bowel Sounds normal. MUSCULOSKELETAL: Good range of motion of all major joints. Extremities without clubbing, cyanosis or edema. NEUROLOGIC EXAM: Alert and oriented x 3. No focal sensory or strength deficits. Speech normal. Follows commands. PSYCHIATRIC: Mood normal. SKIN: No rash or lesions. - Constitutional Vitals: Temp Pulse Resp BP Pulse Ox 98.3 F 53 L 18 115/67 98 01/16/18 11:18 01/16/18 10:54 01/16/18 19:30 01/16/18 10:54 01/16/18 14:24 General appearance: Present: no acute distress, obese Results - Labs CBC & Chem 7: 01/13/18 15:04 01/13/18 15:04 Labs: Laboratory Last Values WBC 8.2 K/mm3 (4.5-11.0) 01/13/18 15:04 RBC 4.08 M/mm3 (3.65-5.03) 01/13/18 15:04 Hgb 12.8 gm/dl (11.8-15.2) 01/13/18 15:04 Hct 38.4 % (35.5-45.6) 01/13/18 15:04 MCV 94 fl (84-94) 01/13/18 15:04 MCH 31 pg (28-32) 01/13/18 15:04 MCHC 33 % (32-34) 01/13/18 15:04 RDW 14.6 % (13.2-15.2) 01/13/18 15:04 Plt Count 100 K/mm3 (140-440) L 01/13/18 15:04 Lymph % (Auto) 27.4 % (13.4-35.0) 01/13/18 15:04 [place] % (Auto) 11.2 % (0.0-7.3) H 01/13/18 15:04 Eos % (Auto) 0.7 % (0.0-4.3) 01/13/18 15:04 Baso % (Auto) 0.5 % (0.0-1.8) 01/13/18 15:04 Lymph # 2.2 K/mm3 (1.2-5.4) 01/13/18 15:04 [place] # 0.9 K/mm3 (0.0-0.8) H 01/13/18 15:04 Eos # 0.1 K/mm3 (0.0-0.4) 01/13/18 15:04 Baso # 0.0 K/mm3 (0.0-0.1) 01/13/18 15:04 Seg Neutrophils % 60.2 % (40.0-70.0) 01/13/18 15:04 Seg Neutrophils # 4.9 K/mm3 (1.8-7.7) 01/13/18 15:04 Sodium 141 mmol/L (137-145) 01/13/18 15:04 Potassium 4.2 mmol/L (3.6-5.0) 01/13/18 15:04 Chloride 101.9 mmol/L (98-107) 01/13/18 15:04 Carbon Dioxide 25 mmol/L (22-30) 01/13/18 15:04 Anion Gap 18 mmol/L 01/13/18 15:04 BUN 5 mg/dL (9-20) L 01/13/18 15:04 Creatinine 0.7 mg/dL (0.8-1.5) L 01/13/18 15:04 Estimated GFR > 60 ml/min 01/13/18 15:04 BUN/Creatinine Ratio 7 % 01/13/18 15:04 Glucose 89 mg/dL (75-100) 01/13/18 15:04 Calcium 8.7 mg/dL (8.4-10.2) 01/13/18 15:04 Urine Color Yellow (Yellow) 01/13/18 15:00 Urine Turbidity Clear (Clear) 01/13/18 15:00 Urine pH 6.0 (5.0-7.0) 01/13/18 15:00 Ur Specific [place] 1.025 (1.003-1.030) 01/13/18 15:00 Urine Protein <15 mg/dl mg/dL (Negative) 01/13/18 15:00 Urine Glucose (UA) Neg mg/dL (Negative) 01/13/18 15:00 Urine Ketones Neg mg/dL (Negative) 01/13/18 15:00 Urine Blood Sm (Negative) 01/13/18 15:00 Urine Nitrite Neg (Negative) 01/13/18 15:00 Urine Bilirubin Neg (Negative) 01/13/18 15:00 Urine Urobilinogen 4.0 mg/dL (<2.0) 01/13/18 15:00 Ur Leukocyte Esterase Tr (Negative) 01/13/18 15:00 Urine WBC (Auto) 4.0 /HPF (0.0-6.0) 01/13/18 15:00 Urine RBC (Auto) 18.0 /HPF (0.0-6.0) 01/13/18 15:00 U Epithel Cells (Auto) 1.0 /HPF (0-13.0) 01/13/18 15:00 Urine Mucus 2+ /HPF 01/13/18 15:00 Salicylates < 0.3 mg/dL (2.8-20.0) L 01/13/18 15:04 Urine Opiates Screen Presumptive negative 01/13/18 15:00 Urine Methadone Screen Presumptive negative 01/13/18 15:00 Acetaminophen < 5.0 ug/mL (10.0-30.0) L 01/13/18 15:04 Ur Barbiturates Screen Presumptive negative 01/13/18 15:00 Ur Phencyclidine Scrn Presumptive negative 01/13/18 15:00 Ur Amphetamines Screen Presumptive negative 01/13/18 15:00 U Benzodiazepines Scrn Presumptive negative 01/13/18 15:00 Urine Cocaine Screen Presumptive positive 01/13/18 15:00 U Marijuana (THC) Screen Presumptive negative 01/13/18 15:00 Drugs of Abuse Note Disclamer 01/13/18 15:00 Plasma/Serum Alcohol < 0.01 % (0-0.07) 01/13/18 15:04
[2018-01-16] MEDS: RisperDAL PO SCH (22:10)
--- NOTE | 2018-01-17 09:01 | Event Note ---
Date: 01/17/18 Discussed with manager practice. Patient will return to ED status, as Admission was cancelled. Total care will be returned to the ED physicians for management
[2018-01-17 13:06] VITALS: BP 116/68
--- NOTE | 2018-01-17 14:01 | Progress Note ---
Subjective - Reason for Consult Consult date: 01/17/18 Reason for consult: Psychiatry Follow-up - Chief Complaint Chief complaint: "I will do better when I'm discharged" 57 y.o. AA male presenting to the ER because of SI's. Today the patient is calm and cooperative during the assessment. He stated that he will follow up with [facility] for outpatient psy/rehab services when discharged. He denies SI/ HI's and AVH's. Per the staff, no behavioral disturbance overnight. He denies any side effects of his medications. Mental Status Exam - Vital signs Last Vital Signs Temp 97.5 F L 01/17/18 13:05 Pulse 60 01/17/18 13:05 Resp 18 01/17/18 13:06 BP 116/68 01/17/18 13:05 Pulse Ox 98 01/17/18 13:05 - Exam Narrative exam: MSE: Appearance: calm, cooperative Behavior: regular eye contact Speech: regular rate and tone Mood: "fine" Affect: congruent to mood Thought Process: logical Thought Content: denies SI/HI's and AVH's Motor Activity: lying in bed Cognition: A/O x3 Insight: fair Judgment: fair Assessment and Plan Impression: Unspecified Psychosis. Substance Use DO (cocaine). Today the patient is calm and cooperative during the assessment. Hx of Schizophrenia per the patient DDx: R/O Bipolar DO, R/O Schizoaffective DO, R/O Substance Induced Psychosis Recommendation/Plan: Rescind 1013. Continue Risperdal 0.5 mg PO HS for psychosis. Discussed possible metabolic side effects of Risperdal with patient. The patient can follow up at [facility] for outpatient psy/rehab services.
--- NOTE | 2018-01-17 15:38 | Emergency Department Report ---
Blank Doc - Documentation Documentation: Patient with a 7-year-old male who presents emergency room for psychiatric evaluation. Patient was seen by mental health and psychiatry and was deemed stable. 1013 is rescinded. Patient is stable for discharge. Medical clearance was done prior to mental health evaluation.
--- NOTE | 2018-01-20 23:53 | Progress Note ---
Subjective - Reason for Consult Consult date: 01/15/18 Reason for consult: Psychiatric Follow-up Evaluation - Chief Complaint Chief complaint: "I'm here for psychological problems" Rajiv is a 57 year old male who presents to the ER for suicidal ideation. Today patient presents calm but guarded/evasive. He reports " I'm here for psychological problems." I believe someone is out to get me, the [employer]. He denies SI/HI and A/VH. Patient is compliant with medication. He denies side effects to medication. Mental Status Exam - Vital signs Last Vital Signs Temp 97.5 F L 01/17/18 13:05 Pulse 60 01/17/18 13:05 Resp 18 01/17/18 13:06 BP 116/68 01/17/18 13:05 Pulse Ox 98 01/17/18 13:05 - Exam Narrative exam: Mental Status Exam General Appearance: Casually dressed-hospital gown Attitude/Behavior: Evasive and guarded Sensorium: Distracted Orientation: Alert and oriented x 4 Mood: Anxious, Labile, and Easily Irritable Affect: Constricted Speech/Language: Normal rate and tone Thought Process: Circumstantial Thought Content: Parnoid Perception: WNL Concentration/Attention: Impaired concentration/attention Memory: Intact Suicidal Ideation/Plan: Patient denies Homicidal Ideation/Plan: Patient denies Assessment and Plan Impression: Unspecified Psychosis. Substance Use DO (cocaine). PPHx of Schizophrenia per patient. Today patient presents calm, cooperative, but guarded/evasive. He endorses paranoid thoughts. DDx: R/O Bipolar DO, R/O Schizoaffective DO, R/O Substance Induced Psychosis Recommendation/Plan: 1. Continue Risperdal 0.5 mg PO HS for psychosis. Discussed possible metabolic side effects of Risperdal with patient. 2. Assist with outpatient psychiatric rehab services. 3. Will re-asses for follow-up on .
== END 2018-01-17 16:52 ==
LOC: EEVIPCON 14:11 → ED 14:11 → UNDOADMOB 01-16 04:56 → INTOOBSV 01-16 04:56 → 3A 01-16 04:56 → ED 01-17 16:52 → UNDODISOB 01-17 17:00
DX: F14.10 Cocaine abuse, uncomplicated (principal); R45.851 Suicidal ideations; K21.9 Gastro-esophageal reflux disease without esophagitis
CPT/HCPCS: 36415; 80048; 80307; 81001; 85025; 99285; G0480; 80320

== ENCOUNTER 2018-01-24 13:13 | Emergency (ER) | payer MEDICARE | END 2018-01-24 14:32 | disposition left against medical advice (07) | LOC: ED 13:13 | DX: F10.120 Alcohol abuse with intoxication, uncomplicated (principal); Z53.21 Procedure and treatment not carried out due to patient leaving prior to being seen by health care provider ==

== ENCOUNTER 2018-02-28 14:50 | Emergency (ER) | payer MEDICARE ==
[2018-02-28 15:40] LABS: Basophils # (Auto) 0.1 K/mm3 (0.0-0.1); Eosinophils # (Auto) 0.1 K/mm3 (0.0-0.4); Eosinophils % (Auto) 1.8 % (0.0-4.3); Hematocrit 38.2 % (35.5-45.6); Lymphocytes # (Auto) 2.4 K/mm3 (1.2-5.4); Lymphocytes % (Auto) 34.9 % (13.4-35.0); Mean Corpuscular HGB Conc 34 % (32-34); Mean Corpuscular Hemoglobin 31 pg (28-32); Mean Corpuscular Volume 92 fl (84-94); Monocytes # (Auto) 0.6 K/mm3 (0.0-0.8); Monocytes % (Auto) 9.2 % (0.0-7.3); Platelet Count 172 K/mm3 (140-440); Red Blood Count 4.14 M/mm3 (3.65-5.03); Red Cell Distribution Width 14.9 % (13.2-15.2)
[2018-02-28 15:55] LABS: BUN/Creatinine Ratio 11; Blood Urea Nitrogen 8 mg/dL (9-20); Calcium 8.4 mg/dL (8.4-10.2); Hemolysis Index 97
--- NOTE | 2018-02-28 19:35 | XRay Report ---
FINAL REPORT EXAM: XR CHEST ROUTINE 2V HISTORY: Shortness of breath TECHNIQUE: Frontal and lateral chest x-ray. PRIORS: 18 September 2017. FINDINGS: Cardiac and mediastinal silhouette within normal limits. Lungs are hyperinflated, without significant vascular congestion. No focal consolidation, pleural effusion or apparent pneumothorax. Bony thorax grossly unremarkable. IMPRESSION: 1. No acute findings.
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
[2018-03-01] MEDS ORDERED: ZESTRIL PO ONE (00:58)
[2018-03-01] MEDS ORDERED: LASIX PO ONE (00:59)
[2018-03-01 01:27] VITALS: BP 113/70
[2018-03-01] MEDS ORDERED: PROTONIX PO SCH (10:00)
== END 2018-03-01 01:50 ==
LOC: ED 14:50
DX: K21.9 Gastro-esophageal reflux disease without esophagitis (principal); F17.200 Nicotine dependence, unspecified, uncomplicated
CPT/HCPCS: 36415; 71046; 80048; 83880; 84484; 85025; 93005; 93010

== ENCOUNTER 2018-08-11 15:59 | Emergency (ER) | payer MEDICARE ==
[2018-08-11 16:18] VITALS: BP 118/76
[2018-08-11 16:53] LABS: Basophils % (Auto) 0.6 % (0.0-1.8); Eosinophils # (Auto) 0.1 K/mm3 (0.0-0.4); Eosinophils % (Auto) 1.8 % (0.0-4.3); Hematocrit 39.6 % (35.5-45.6); Hemoglobin 13.6 gm/dl (11.8-15.2); Lymphocytes # (Auto) 2.2 K/mm3 (1.2-5.4); Lymphocytes % (Auto) 30.1 % (13.4-35.0); Mean Corpuscular HGB Conc 34 % (32-34); Mean Corpuscular Hemoglobin 32 pg (28-32); Mean Corpuscular Volume 93 fl (84-94); Monocytes # (Auto) 0.9 K/mm3 (0.0-0.8); Monocytes % (Auto) 12.6 % (0.0-7.3); Platelet Count 185 K/mm3 (140-440); Red Blood Count 4.25 M/mm3 (3.65-5.03); Red Cell Distribution Width 13.7 % (13.2-15.2)
[2018-08-11 17:10] LABS: BUN/Creatinine Ratio 13; Blood Urea Nitrogen 9 mg/dL (9-20); Hemolysis Index 8
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
--- NOTE | 2018-08-11 18:24 | XRay Report ---
FINAL REPORT EXAM: XR CHEST ROUTINE 2V HISTORY: sob TECHNIQUE: Two view chest PA and lateral PRIORS: None. FINDINGS: Cardiac and mediastinal contours are unremarkable. No focal pulmonary infiltrate is identified. No pleural fluid collection seen. Pulmonary vasculature is unremarkable. IMPRESSION: Negative two-view chest
== END 2018-08-11 18:42 ==
LOC: ED 15:59
DX: J20.9 Acute bronchitis, unspecified (principal); R60.9 Edema, unspecified; I11.0 Hypertensive heart disease with heart failure; I50.9 Heart failure, unspecified; K21.9 Gastro-esophageal reflux disease without esophagitis; F17.200 Nicotine dependence, unspecified, uncomplicated
CPT/HCPCS: 36415; 71046; 80048; 85025; 99283

== ENCOUNTER 2019-01-04 19:35 | Emergency (ER) | payer MEDICARE ==
--- NOTE | 2019-01-04 20:02 | Emergency Department Report ---
Blank Doc - Documentation Documentation: This is a 58-year-old male that presents with hallucinations and hearing voices. Patient stated has suicidal ideation. This initial assessment diagnostic orders/clinical plan/treatment(s) is/are subject to change based on patient's health status, clinical progression and re-assessment by fellow clinical providers in the ED. Further treatment and workup at subsequent clinical providers discretion. Patient/guardians urged not to elope from ED s their condition may be serious if not clinically assessed and managed. Initial orders include: 1-labs 2- Charge nurse called for patient to be brought back [facility]. 3- RN was notified patient to be in full observation until patient goes back to the ED. 4- Patient placed on 1013 because I am concerned about patient safety and other people safety. Patient demonstrated to me that he wants to harm other people.
[2019-01-04 20:45] LABS: Basophils % (Auto) 0.5 % (0.0-1.8); Eosinophils # (Auto) 0.1 K/mm3 (0.0-0.4); Eosinophils % (Auto) 1.2 % (0.0-4.3); Hematocrit 38.3 % (35.5-45.6); Hemoglobin 12.7 gm/dl (11.8-15.2); Lymphocytes # (Auto) 1.3 K/mm3 (1.2-5.4); Mean Corpuscular HGB Conc 33 % (32-34); Mean Corpuscular Volume 94 fl (84-94); Monocytes # (Auto) 0.5 K/mm3 (0.0-0.8); Monocytes % (Auto) 9.7 % (0.0-7.3); Platelet Count 164 K/mm3 (140-440); Red Blood Count 4.08 M/mm3 (3.65-5.03); Red Cell Distribution Width 15.1 % (13.2-15.2)
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
[2019-01-04 21:09] LABS: Alanine Aminotransferase 36 units/L (7-56); BUN/Creatinine Ratio 12; Blood Urea Nitrogen 7 mg/dL (9-20); Calcium 8.8 mg/dL (8.4-10.2); Hemolysis Index 12
[2019-01-04] MEDS ORDERED: DUONEB *Not for PRN Use IH ONE (23:18)
[2019-01-05 00:06] LABS: Bilirubin,Urine SM (Negative); Blood,Urine NEG (Negative); Color,Urine Amber (Yellow); Mucus,Urine 3+ /HPF
--- NOTE | 2019-01-05 00:09 | XRay Report ---
FINAL REPORT PROCEDURE: XR CHEST 1V AP TECHNIQUE: Chest radiograph anteroposterior view. CPT 47151 HISTORY: cough COMPARISON: 08/11/2018 FINDINGS: Heart: Normal. Mediastinum/Vessels: Normal. Lungs/Pleural space: Normal. Bony thorax: No acute osseous abnormality. Life support devices: None. IMPRESSION: No acute cardiopulmonary abnormality.
[2019-01-05 00:21] LABS: Amphetamine Screen,Urine PRESUMPTIVE NEGATIVE; Benzodiazepines Screen,Urine PRESUMPTIVE NEGATIVE; Cannabinoid Screen,Urine PRESUMPTIVE NEGATIVE; Methadone Screen,Urine PRESUMPTIVE NEGATIVE; Opiate Screen,Urine PRESUMPTIVE NEGATIVE
[2019-01-05 00:27] LABS: Ictotest,Urine Negative (Negative)
[2019-01-05 00:47] LABS: Cocaine Screen,Urine PRESUMPTIVE POSITIVE
[2019-01-05] MEDS ORDERED: BROVANA NEBU IH SCH (08:00)
[2019-01-05] MEDS ORDERED: PULMICORT IH SCH (08:00)
[2019-01-05] MEDS ORDERED: NON-FORMULARY (Fluticasone/Salmeterol [Advair Diskus 100-50 Mcg] 1 PUFF) IH SCH (10:00)
[2019-01-05] MEDS ORDERED: ZESTRIL PO SCH (10:00)
[2019-01-05] MEDS ORDERED: LASIX PO SCH (10:00)
[2019-01-05] MEDS ORDERED: DUONEB *Not for PRN Use IH ONE (11:49)
--- NOTE | 2019-01-05 13:23 | Consultation ---
History of Present Illness - Reason for Consult Consult date: 01/05/19 Reason for consult: Mental Health Evaluation Requesting physician: MIRTHA TUCKER - Chief Complaint Chief complaint: "Something was going on at my house" - History of Present Psychiatric Illness 58-year-old -Fijian male presents to the emergency department for a mental health evaluation. Today the patient is calm, but disorganized during the assessment. He stated that something went on at this home reference being followed etc. He could not elaborate more about what happened at his home when asked. He stated that he was hearing "wired voices." He stated that he received the monthly Invega injection this month during his stay at [facility]. He would not confirm or deny SI's when asked. He denies HI's and VH's. He denies erratic sleep and a poor appetite. He denies alcohol consumption (etoh). He did admit to cocaine use. Medications and Allergies Allergies Allergy/AdvReac Type Severity Reaction Status Date / Time No Known Allergies Allergy Verified 10/16/17 16:01 Home Medications Medication Instructions Recorded Confirmed Last Taken Type Pantoprazole [Protonix TAB] 40 mg PO QDAY #30 tablet 05/29/17 01/14/18 Unknown Rx cephALEXin [Keflex] 500 mg PO Q12HR #10 cap 08/07/17 01/14/18 Unknown Rx Allopurinol [Zyloprim] 100 mg PO QDAY #30 tablet 03/01/18 Unknown Rx Fluticasone/Salmeterol [Advair 1 puff IH BID 30 Days blst.w.dev 03/01/18 Unknown Rx Diskus 100-50 mcg] Furosemide [Lasix TAB] 40 mg PO QDAY #30 tablet 03/01/18 Unknown Rx Lisinopril [Zestril TAB] 2.5 mg PO QDAY #30 tab 03/01/18 Unknown Rx Potassium Chloride 10 meq PO QDAY #30 capsule.er 03/01/18 Unknown Rx Azithromycin [Zithromax Z-ORLANDO] 0 mg PO DAILY #6 tab 08/11/18 Unknown Rx Spironolactone [Aldactone] 50 mg PO QDAY #30 tablet 08/11/18 Unknown Rx Esomeprazole Magnesium 40 mg PO DAILY #30 capsule. 11/05/18 Unknown Rx Active Meds: Active Medications Arformoterol Tartrate (Brovana Nebu) 15 mcg IH Q12HRT LIUDMILA Budesonide (Pulmicort) 0.5 mg IH Q12HRT LIUDMILA Furosemide (Lasix) 40 mg PO QDAY LIUDMILA Lisinopril (Zestril) 2.5 mg PO QDAY [facility] Mental Status Exam - Vital signs Last Vital Signs Temp 98.8 F 01/05/19 07:29 Pulse 92 H 01/05/19 07:29 Resp 18 01/05/19 07:29 BP 152/95 01/05/19 07:29 Pulse Ox 93 01/05/19 07:29 - Exam Narrative exam: MSE: Appearance: calm, cooperative Behavior: regular eye contact Speech: regular rate and tone Mood: "okay" Affect: flat Thought Process: disorganized Thought Content: denies HI's and VH's Motor Activity: ambulatory Cognition: A/O x3 Insight: poor Judgment: poor Results Result Diagrams: 01/04/19 20:09 01/04/19 20:09 Abnormal lab results 01/04/19 01/04/19 01/04/19 Range/Units 20:09 20:09 20:09 [place] % (Auto) 9.7 H (0.0-7.3) % BUN 7 L (9-20) mg/dL Creatinine 0.6 L (0.8-1.5) mg/dL Glucose 103 H (75-100) mg/dL AST 59 H (5-40) units/L Ur Specific [place] (1.003-1.030) Salicylates < 0.3 L (2.8-20.0) mg/dL Acetaminophen (10.0-30.0) ug/mL 01/04/19 01/04/19 Range/Units 20:09 23:19 [place] % (Auto) (0.0-7.3) % BUN (9-20) mg/dL Creatinine (0.8-1.5) mg/dL Glucose (75-100) mg/dL AST (5-40) units/L Ur Specific [place] 1.034 H (1.003-1.030) Salicylates (2.8-20.0) mg/dL Acetaminophen < 5.0 L (10.0-30.0) ug/mL All other labs normal. Assessment and Plan Assessment and plan: Impression: Unspecified Mood DO with psy features. Substance Use DO (cocaine). Today the patient is calm, but disorganized during the assessment. DDx: Bipolar DO with psychosis, R/O Schizoaffective DO, R/O Substance Induced Mood/Psychosis Recommendation/Plan: Continue 1013. The patient receive the monthly Invega injection. Next injection is due first week of January the patient. Dispo: The patient was accepted at [facility] for inpatient psy services. Will staff with Dr Galdino Lee.
[2019-01-05] MEDS ORDERED: LASIX ONE (15:38)
[2019-01-05 17:55] VITALS: BP 147/91
== END 2019-01-05 18:54 | disposition admitted as inpatient to this hospital (09) ==
LOC: EEVIPCON 19:35 → ED 19:35
DX: F20.9 Schizophrenia, unspecified (principal); R45.851 Suicidal ideations; I11.0 Hypertensive heart disease with heart failure; I50.9 Heart failure, unspecified; K21.9 Gastro-esophageal reflux disease without esophagitis; F17.200 Nicotine dependence, unspecified, uncomplicated
CPT/HCPCS: 36415; 71045; 80053; 80307; 81001; 83880; 84443; 84703; 85025; 94640; 99285; G0480; 80320

== ENCOUNTER 2019-05-10 10:10 | Inpatient (IN) | payer MEDICARE ==
[2019-05-10] MEDS ORDERED: NACL 0.9% 1000 ML 1,000 ML IV ONE ×2 (13:14→13:21)
[2019-05-10] MEDS ORDERED: CLEOCIN 900 MG/50 mL 900 MG/50 ML BAG IV ONE (13:14)
[2019-05-10 14:06] LABS: BUN/Creatinine Ratio 9; Blood Urea Nitrogen 8 mg/dL (9-20); Calcium 8.8 mg/dL (8.4-10.2); Hemolysis Index 61
[2019-05-10 14:10] LABS: Hematocrit 41.3 % (35.5-45.6); Hemoglobin 14.1 gm/dl (11.8-15.2); Mean Corpuscular HGB Conc 34 % (32-34); Mean Corpuscular Volume 94 fl (84-94); Platelet Count 179 K/mm3 (140-440); Red Cell Distribution Width 14.5 % (13.2-15.2)
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
--- NOTE | 2019-05-10 14:45 | History and Physical Report ---
History of Present Illness Chief complaint: My leg hurts History of present illness: 58 YO Male with MO, Obesity Hypoventilation, COPD, Systolic/Diastolic CHF, Polysubstance Abuse, Gout, GERD, HTN, Nicotine Dependence presents to ED for evaluation. Pt states that he has experienced pain and redness to his right leg, and right back over the past 5 days with worsening symptoms over the same time frame. Pt acknowledges itching, pain, tenderness but denies fever, chills, NVD, purulent drainage, hemoptysis, BRBPR, Abdominal pain, ingestion of food/water from new/different sources, recent oral antibiotics(Beta lactam), or recent ill contacts. Pt transported to [facility] via private vehicle. Pt seen and evaluated in ED and found to have RLE Cellulitis versus Leukocytoclastic Vasculitis. Pt treated with empiric antibiotic therapy, as well as steroid therapy. Pt admitted to medical floor. Prior admission on 05/21/17 reviewed. All listed medication reconciled at time of admission. Past History Past Medical History: arthritis, COPD, GERD, heart failure, other (Depresssion, Polysubstance Abuse) Social history: smoking Family history: hypertension Medications and Allergies Allergies Allergy/AdvReac Type Severity Reaction Status Date / Time No Known Allergies Allergy Verified 05/10/19 10:18 Home Medications Medication Instructions Recorded Confirmed Last Taken Type Pantoprazole [Protonix TAB] 40 mg PO QDAY #30 tablet 05/29/17 03/01/19 Unknown Rx cephALEXin [Keflex] 500 mg PO Q12HR #10 cap 08/07/17 03/01/19 Unknown Rx Allopurinol [Zyloprim] 100 mg PO QDAY #30 tablet 03/01/18 03/01/19 Unknown Rx Fluticasone/Salmeterol [Advair 1 puff IH BID 30 Days blst.w.dev 03/01/18 03/01/19 Unknown Rx Diskus 100-50 mcg] Furosemide [Lasix TAB] 40 mg PO QDAY #30 tablet 03/01/18 03/01/19 Unknown Rx Lisinopril [Zestril TAB] 2.5 mg PO QDAY #30 tab 03/01/18 03/01/19 Unknown Rx Potassium Chloride 10 meq PO QDAY #30 capsule.er 03/01/18 03/01/19 Unknown Rx Azithromycin [Zithromax Z-[place]] 0 mg PO DAILY #6 tab 08/11/18 03/01/19 Unknown Rx Spironolactone [Aldactone] 50 mg PO QDAY #30 tablet 08/11/18 03/01/19 Unknown Rx Esomeprazole Magnesium 40 mg PO DAILY #30 capsule. 11/05/18 03/01/19 Unknown Rx Review of Systems Constitutional: no weight loss, no weight gain, no fever, no chills Ears, nose, mouth and throat: no ear pain, no ear discharge, no tinnitis, no decreased hearing, no nose pain, no nasal congestion Cardiovascular: no chest pain, no orthopnea, no palpitations, no edema, no syncope, no lightheadedness Respiratory: cough, cough with sputum, no excessive sputum, no hemoptysis, no shortness of breath Gastrointestinal: no nausea, no vomiting, no diarrhea, no constipation Genitourinary Male: no hematuria, no flank pain, no discharge, no urinary frequency, no urinary hesitancy Rectal: no pain, no incontinence, no bleeding Musculoskeletal: no neck stiffness, no neck pain, no shooting arm pain, no arm numbness/tingling, no low back pain, no shooting leg pain, no leg numbness/tingling Integumentary: rash, pruritis, redness, blisters, darkening of skin, color changes, no jaundice Neurological: no head injury, no transient paralysis, no paralysis, no weakness, no parathesias, no numbness Psychiatric: no anxiety, no memory loss, no change in sleep habits, no sleep disturbances, no insomnia, no change in appetite, no change in libido Endocrine: no cold intolerance, no heat intolerance, no polyphagia, no excessive thirst, no polyuria, no nocturia Hematologic/Lymphatic: no easy bruising, no easy bleeding, no lymphadenopathy Allergic/Immunologic: no allergic rhinitis, no wheezing Exam - Constitutional Vitals: Temp Pulse Resp BP Pulse Ox 97.9 F 106 H 20 125/82 97 05/10/19 10:16 05/10/19 10:16 05/10/19 10:16 05/10/19 10:16 05/10/19 10:16 General appearance: Present: mild distress, obese - EENT Eyes: Present: PERRL ENT: hearing intact, clear oral mucosa - Neck Neck: Present: supple, normal ROM - Respiratory Respiratory effort: normal Respiratory: bilateral: diminished, rhonchi - Cardiovascular Heart Sounds: Present: S1 & S2. Absent: rub, click - Extremities Extremities: pulses symmetrical, No edema Peripheral Pulses: within normal limits - Abdominal General gastrointestinal: Present: soft, non-tender, non-distended, normal bowel sounds Male genitourinary: Present: normal - Integumentary Integumentary: Present: warm, erythema (Right leg/back, blanching, papular, erythematous rash, with grouped vesicles not is a dermatomal distribution.) - Musculoskeletal Musculoskeletal: gait normal, strength equal bilaterally - Psychiatric Psychiatric: appropriate mood/affect, intact judgment & insight - Neurologic Neurologic: CNII-XII intact, moves all extremities Results - Labs CBC & Chem 7: 05/10/19 13:32 05/10/19 13:32 Labs: Abnormal lab results 05/10/19 05/10/19 05/10/19 Range/Units 13:32 13:32 13:32 Sodium 135 L (137-145) mmol/L BUN 8 L (9-20) mg/dL Lactic Acid 3.60 H* (0.7-2.0) mmol/L C-Reactive Protein 1.50 H (0.00-1.30) mg/dL Assessment and Plan - Patient Problems (1) Cellulitis Current Visit: Yes Status: Acute Qualifiers: Site of cellulitis: extremity Site of cellulitis of extremity: lower extremity Laterality: right Qualified Code(s): L03.115 - Cellulitis of right lower limb Plan to address problem: Iv antibiotic therapy, CBC, BMP, CT RLE, pain control, (2) Leukocytoclastic vasculitis Current Visit: Yes Status: Acute Plan to address problem: IV steroid therapy, ESR, CRP, Rhe[employer] Factory, ANCA, Complement Levels, He patitis Panel to evaluate for HCV, HIV, CTA Chest/Abdomen/Pelvis. (3) Nicotine dependence unspecified, with withdrawal Current Visit: Yes Status: Acute Qualifiers: Nicotine product type: cigarettes Qualified Code(s): F17.213 - Nicotine dependence, cigarettes, with withdrawal Plan to address problem: Smoking cessation counselinminutes (4) Obesity hypoventilation syndrome Current Visit: Yes Status: Acute Plan to address problem: Supplemental oxygen, nebulizer therapy, NIPPV as clinically indicated, incentive spirometry, pulse oximetry, balanced diet, increased physical activity at discharge, Pt counseled regarding balanced diet, and weight loss.:15 minutes. (5) CHF (congestive heart failure) Current Visit: Yes Status: Acute Qualifiers: Heart failure type: combined systolic and diastolic Plan to address problem: Strict I/O, daily weight, monitor uop q shift, diuresis, afterload reduction, chest x ray, supplemental oxygen, CTA chest, (6) Acidosis Current Visit: Yes Status: Acute Plan to address problem: supportive care, repeat bmp in am. (7) COPD (chronic obstructive pulmonary disease) Current Visit: Yes Status: Acute Qualifiers: COPD type: COPD with acute exacerbation Qualified Code(s): J44.1 - Chronic obstructive pulmonary disease with (acute) exacerbation Plan to address problem: Admit to medical floor, supplemental oxygen, IV antibiotic, IV steroid therapy, NIPPV as clinically indicated. (8) GERD (gastroesophageal reflux disease) Current Visit: No Status: Acute Qualifiers: Esophagitis presence: without esophagitis Qualified Code(s): K21.9 - Gastro-esophageal reflux disease without esophagitis Plan to address problem: PPI therapy, supportive care, HOB above 30 degrees for 2 hours after meals. (9) DVT prophylaxis Current Visit: No Status: Acute Plan to address problem: SCD to BLE while in bed, Pt ambulatiory. Hold anticoagulation pending vasculitic workup.
[2019-05-10 15:51] LABS: Basophils % (Manual) 0 % (0.0-1.8); Total Cells Counted 100
[2019-05-10 15:53] LABS: Anisocytosis Few; Ovalocytes Rare; Platelet Estimate Consistent w Auto
[2019-05-10] MEDS ORDERED: NACL 0.9% 1000 ML 1,000 ML ONE (16:56)
--- NOTE | 2019-05-10 16:59 | Cat Scan Report ---
PROCEDURE: CT LOWER EXTREMITY RT W CON TECHNIQUE: Spiral imaging of the right thigh was obtained in the axial plane during the administrati on of IV contrast. Computer-generated sagittal and coronal reconstructions were created. HISTORY: right leg cellulitis r/o necrotizing fasciitis COMPARISONS: None FINDINGS: There is mild skin thickening visualized anterior and lateral aspect of the right thigh and minimal t hickening anterior medial aspect of the right thigh. Minimal subcutaneous edema visualized. The appea julianna suggests mild cellulitis. No masses or abnormal fluid collections are seen. The density of the musculature appears normal. The musculature does not appear to be edematous no focal abnormalities of the musculature is identified. The common femoral artery superficial femoral artery and visualized p opliteal artery appear patent. Heterogeneous density is seen in the venous system of the right leg wh ich may be due to incomplete contrast opacification. DVT cannot be entirely excluded. IMPRESSION: Mild cellulitis suspected anterior, medial lateral lateral aspect right thigh.. Musculature is unrema rkable. Heterogeneous density seen in the deep venous system of the right thigh. This may be an artifact due to incomplete opacification with contrast. DVT is not excluded. Consider follow-up venous ultrasound right lower extremity. This document is electronically signed by Danny Clayton MD., May 10 2019 04:57:43 PM ET
[2019-05-10] MEDS ORDERED: PROVENTIL IH PRN (17:09)
[2019-05-10] MEDS ORDERED: SODIUM CHLORIDE FLUSH SYRINGE 10 ML IV PRN (17:09)
[2019-05-10] MEDS ORDERED: TYLENOL PO PRN (17:09)
[2019-05-10] MEDS ORDERED: ZOFRAN IV PRN (17:09)
[2019-05-10] MEDS ORDERED: SOLU-Medrol IV ONE (18:00)
--- NOTE | 2019-05-10 18:11 | Vascular Lab Report ---
PROCEDURE: VL VENOUS DUPLEX LE RT TECHNIQUE: Duplex Doppler sonography of the right leg. Scales scale imaging with and without compressi on, spectral waveform analysis with and without augmentation, and color flow Doppler were employed. HISTORY: right leg swelling/pain/rash COMPARISONS: None FINDINGS: Deep Venous Thrombus: None Superficial Venous Thrombus: None Venous valvular incompetence: None Soft tissue abnormality: Several mildly enlarged lymph nodes in the right groin are noted. IMPRESSION: No evidence of deep venous thrombosis. Several mildly enlarged lymph nodes in the right groin are not ed This document is electronically signed by Emily Ellis MD., May 10 2019 06:09:25 PM ET
[2019-05-10 18:21] LABS: INR 1.13 (0.87-1.13)
--- NOTE | 2019-05-10 18:30 | XRay Report ---
PROCEDURE: XR CHEST 1V AP TECHNIQUE: Chest radiograph single view. HISTORY: cough COMPARISONS: CXR 02/28/2019 . FINDINGS: Heart: Normal. Mediastinum/Vessels: Normal. Lungs/Pleural space: Normal. Bony thorax: No acute osseous abnormality. Life support devices: None. IMPRESSION: No acute cardiopulmonary abnormality. No change This document is electronically signed by Emily Ellis MD., May 10 2019 06:28:19 PM ET
[2019-05-10] MEDS ORDERED: SOLU-Medrol ONE (18:37)
[2019-05-10] MEDS ORDERED: PROTONIX IV ONE (18:39)
[2019-05-10] MEDS: PROTONIX PO SCH (18:41)
[2019-05-10 18:51] LABS: Bilirubin,Urine NEG (Negative); Blood,Urine MOD (Negative); Color,Urine Yellow (Yellow); Mucus,Urine FEW /HPF; Protein,Urine <15 mg/dL mg/dL (Negative); Urobilinogen,Urine < 2.0 mg/dL (<2.0)
[2019-05-10] MEDS: BROVANA NEBU IH SCH (20:12)
[2019-05-10] MEDS: PULMICORT IH SCH (20:12)
[2019-05-10 20:51] LABS: Hepatitis B Surface Antigen Non-Reactive (Negative); Hepatitis C Virus Antibody Non-Reactive (NonReactive)
[2019-05-10] MEDS ORDERED: NON-FORMULARY (Fluticasone/Salmeterol [Advair Diskus 100-50 Mcg] 1 PUFF) IH SCH (22:00)
[2019-05-10] MEDS: SODIUM CHLORIDE FLUSH SYRINGE 10 ML IV SCH (22:51)
[2019-05-11] MEDS: BROVANA NEBU IH SCH (07:21)
[2019-05-11] MEDS: PULMICORT IH SCH (07:21)
[2019-05-11] MEDS ORDERED: ESOMEPRAZOLE MAGNESIUM 40 MG PO SCH (10:00)
[2019-05-11] MEDS ORDERED: ZESTRIL PO SCH (10:00)
[2019-05-11] MEDS ORDERED: NON-FORMULARY (Potassium Chloride [Potassium Chloride] 10 MEQ) PO SCH (10:00)
[2019-05-11] MEDS ORDERED: K-DUR PO SCH (10:00)
[2019-05-11] MEDS ORDERED: ZYLOPRIM PO SCH (10:00)
[2019-05-11] MEDS ORDERED: LASIX IV SCH (10:00)
[2019-05-11] MEDS ORDERED: ALDACTONE PO SCH (10:00)
[2019-05-11] MEDS ORDERED: NON-FORMULARY (Lisinopril [Zestril Tab] 2.5 MG) PO SCH (10:00)
[2019-05-11] MEDS: PROTONIX PO SCH (10:09)
[2019-05-11] MEDS: SODIUM CHLORIDE FLUSH SYRINGE 10 ML IV SCH (10:10)
--- NOTE | 2019-05-11 11:39 | Discharge Summary ---
Providers - Providers Date of Admission: 05/10/19 17:09 Date of discharge: 05/11/19 Attending physician: BARNEY HOLLINGSWORTH Primary care physician: MENA ALFONSO Hospitalization Condition: Stable Pertinent studies: LE doppler - negative CT RLE - mild cellulitis of the anterior, medial lateral aspect of the right thigh CXR - no infiltrates Hospital course: 58 YO Male with MO, Obesity Hypoventilation, COPD, Systolic/Diastolic CHF, Polysubstance Abuse, Gout, GERD, HTN, Nicotine Dependence presented to ED for evaluation of pain and redness to his right leg, and right back over the past 5 days with worsening symptoms. Pt seen and evaluated in ED and found to have RLE Cellulitis versus Leukocytoclastic Vasculitis. Pt treated with empiric antibiotic therapy, as well as steroid therapy. Pt admitted to medical floor, blood Cx obtained and that was negative. He was then discharged home with oral abx and outpt follow up in stable condition. Discharge diagnosis: Right LE Cellulitis Nicotine dependence unspecified, Obesity hypoventilation syndrome CHF (congestive heart failure), EF 45-50%, chronic, compensated COPD (chronic obstructive pulmonary disease), chronic GERD (gastroesophageal reflux disease) Disposition: TO HOME OR SELFCARE Time spent for discharge: 34 minutes Core Measure Documentation - Palliative Care Palliative Care/ Comfort Measures: Not Applicable - Core Measures Any of the following diagnoses?: none Exam - Physical Exam Narrative exam: General appearance: Present: mild distress, obese - EENT Eyes: Present: PERRL ENT: hearing intact, clear oral mucosa - Neck Neck: Present: supple, normal ROM - Respiratory Respiratory effort: normal Respiratory: bilateral: diminished, rhonchi - Cardiovascular Heart Sounds: Present: S1 & S2. Absent: rub, click - Extremities Extremities: pulses symmetrical, No edema Peripheral Pulses: within normal limits - Abdominal General gastrointestinal: Present: soft, non-tender, non-distended, normal bowel sounds Male genitourinary: Present: normal - Integumentary Integumentary: Present: warm, erythema (Right leg/back, blanching, papular, erythematous rash, with grouped vesicles not is a dermatomal distribution.) - Musculoskeletal Musculoskeletal: gait normal, strength equal bilaterally - Psychiatric Psychiatric: appropriate mood/affect, intact judgment & insight - Neurologic Neurologic: CNII-XII intact, moves all extremities - Constitutional Vitals: Temp Pulse Resp BP Pulse Ox 98.7 F 85 19 140/89 93 05/11/19 05:56 05/11/19 07:31 05/11/19 07:31 05/11/19 05:56 05/11/19 09:04 Plan Activity: advance as tolerated Weight Bearing Status: Non-Weight Bearing Diet: low fat, low salt Follow up with: MENA ALFONSO MD [Primary Care Provider] - 7 Days Prescriptions: Clindamycin [Clindamycin CAP] 600 mg PO BID #14 capsule guaiFENesin ER [Mucinex ER] 600 mg PO Q12H #14 tablet.er
[2019-05-11 13:34] VITALS: BP 147/79
[2019-05-11] MEDS ORDERED: SOLU-Medrol IV SCH (18:00)
[2019-05-17 18:23] LABS: Myeloperoxidase Antibody <1.0 AI (<1.0)
== END 2019-05-11 14:29 | disposition home or self-care (01) | DRG 602 ==
LOC: ED 10:10 → 3A 17:09
PROVIDERS: ADMIT Internal Medicine; ATTEND Internal Medicine
DX: L03.115 Cellulitis of right lower limb (principal); I50.43 Acute on chronic combined systolic (congestive) and diastolic (congestive) heart failure; E87.2 Acidosis; J44.1 Chronic obstructive pulmonary disease with (acute) exacerbation; E66.2 Morbid (severe) obesity with alveolar hypoventilation; Z68.41 Body mass index [BMI] 40.0-44.9, adult; I50.42 Chronic combined systolic (congestive) and diastolic (congestive) heart failure; F17.213 Nicotine dependence, cigarettes, with withdrawal; K21.9 Gastro-esophageal reflux disease without esophagitis; L95.9 Vasculitis limited to the skin, unspecified; F19.10 Other psychoactive substance abuse, uncomplicated; M10.9 Gout, unspecified; I11.0 Hypertensive heart disease with heart failure; M19.90 Unspecified osteoarthritis, unspecified site; F32.9 Major depressive disorder, single episode, unspecified; Z82.49 Family history of ischemic heart disease and other diseases of the circulatory system; Z79.899 Other long term (current) drug therapy; Z71.6 Tobacco abuse counseling; Z71.3 Dietary counseling and surveillance
CPT/HCPCS: 36415; 71045; 80048; 80074; 81001; 82140; 85007; 85025; 85610; 85652; 86021; 86140; 86160; 86162; 86618; 87806; 94640; 96374; 96375; 99285; 99406; G0378; C9113; J1940; J2930; J7030; Q9967

== ENCOUNTER 2019-07-26 15:11 | Emergency (ER) | payer MEDICARE ==
--- NOTE | 2019-07-26 15:47 | Event Note ---
ED Screening Note Date of service: 07/26/19 Time: 15:45 ED Screening Note: This is a 58 y.o. M. that presents to the ER with chest pain and radiating to back. Reports pain to right thigh. Patient states he was placed on antibiotics for cellulitis. States he didn't complete medication and rash worse. This initial assessment/diagnostic orders/clinical plan/treatment(s) is/are subject to change based on patients health status, clinical progression and re- assessment by fellow clinical providers in the ED. Further treatment and workup at subsequent clinical providers discretion. Patient/guardian urged not to elope from the ED as their condition may be serious if not clinically assessed and managed. Initial orders include: Labs, EKG, and CXR
[2019-07-26 15:48] VITALS: BP 121/75
[2019-07-26] MEDS ORDERED: ASPIRIN PO ONE (15:48)
--- NOTE | 2019-07-26 16:55 | XRay Report ---
CHEST 1 VIEW INDICATION: Chest Pain. COMPARISON: 05/10/2019 FINDINGS: Support devices: None. Heart: Within normal limits. Lungs/Pleura: No acute air space or interstitial disease. Additional findings: None. IMPRESSION: 1. No acute findings. Signer Name: Tomás Tipton MD Signed: 07/26/2019 4:50 PM Workstation Name: [id number]
[2019-07-26 17:01] LABS: Basophils # (Auto) 0.1 K/mm3 (0.0-0.1); Basophils % (Auto) 0.9 % (0.0-1.8); Eosinophils # (Auto) 0.1 K/mm3 (0.0-0.4); Eosinophils % (Auto) 0.7 % (0.0-4.3); Hematocrit 38.9 % (35.5-45.6); Hemoglobin 13.2 gm/dl (11.8-15.2); Lymphocytes # (Auto) 1.9 K/mm3 (1.2-5.4); Lymphocytes % (Auto) 27.1 % (13.4-35.0); Mean Corpuscular HGB Conc 34 % (32-34); Mean Corpuscular Volume 93 fl (84-94); Monocytes # (Auto) 0.8 K/mm3 (0.0-0.8); Monocytes % (Auto) 11.8 % (0.0-7.3); Platelet Count 186 K/mm3 (140-440); Red Cell Distribution Width 14.4 % (13.2-15.2)
[2019-07-26 17:23] LABS: BUN/Creatinine Ratio 11; Blood Urea Nitrogen 8 mg/dL (9-20); Calcium 9.1 mg/dL (8.4-10.2); Hemolysis Index 68
[2019-07-26] MEDS ORDERED: DELTASONE PO ONE (18:00)
[2019-07-26] MEDS ORDERED: TYLENOL/CODEINE PO ONE (18:00)
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
== END 2019-07-26 19:18 | disposition home or self-care (01) ==
LOC: ED 15:11
DX: J44.9 Chronic obstructive pulmonary disease, unspecified (principal); J20.9 Acute bronchitis, unspecified; R21 Rash and other nonspecific skin eruption; I11.0 Hypertensive heart disease with heart failure; I50.9 Heart failure, unspecified; K21.9 Gastro-esophageal reflux disease without esophagitis; M10.9 Gout, unspecified; F20.9 Schizophrenia, unspecified; F17.200 Nicotine dependence, unspecified, uncomplicated; Z98.890 Other specified postprocedural states; Z87.442 Personal history of urinary calculi
CPT/HCPCS: 36415; 71045; 80048; 84484; 85025; 93005; 93010; 99284; J7512

== ENCOUNTER 2020-05-02 14:45 | Emergency (ER) | payer MEDICARE ==
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
[2020-05-02 15:56] VITALS: BP 132/66
[2020-05-02 16:03] LABS: Basophils % (Auto) 0.4 % (0.0-1.8); Eosinophils # (Auto) 0.1 K/mm3 (0.0-0.4); Eosinophils % (Auto) 1.3 % (0.0-4.3); Hematocrit 38.4 % (35.5-45.6); Hemoglobin 13.6 gm/dl (11.8-15.2); Lymphocytes # (Auto) 1.8 K/mm3 (1.2-5.4); Lymphocytes % (Auto) 29.9 % (13.4-35.0); Mean Corpuscular HGB Conc 35 % (32-34); Mean Corpuscular Volume 95 fl (84-94); Monocytes # (Auto) 0.6 K/mm3 (0.0-0.8); Monocytes % (Auto) 10.8 % (0.0-7.3); Platelet Count 186 K/mm3 (140-440); Red Blood Count 4.06 M/mm3 (3.65-5.03); Red Cell Distribution Width 13.6 % (13.2-15.2)
[2020-05-02 16:18] LABS: Alanine Aminotransferase 21 units/L (7-56); Albumin 3.8 g/dL (3.9-5); BUN/Creatinine Ratio 11; Blood Urea Nitrogen 8 mg/dL (9-20); Calcium 9.2 mg/dL (8.4-10.2); Hemolysis Index 16
[2020-05-02 16:39] LABS: Bilirubin,Urine NEG (Negative); Blood,Urine SM (Negative); Color,Urine Yellow (Yellow); Mucus,Urine 3+ /HPF; Protein,Urine <15 mg/dL mg/dL (Negative)
[2020-05-02 16:45] LABS: Amphetamine Screen,Urine PRESUMPTIVE NEGATIVE; Benzodiazepines Screen,Urine PRESUMPTIVE NEGATIVE; Cannabinoid Screen,Urine PRESUMPTIVE NEGATIVE; Cocaine Screen,Urine PRESUMPTIVE NEGATIVE; Methadone Screen,Urine PRESUMPTIVE NEGATIVE; Opiate Screen,Urine PRESUMPTIVE NEGATIVE
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
[2020-05-02] MEDS ORDERED: traZODone 50 MG TAB PO SCH (22:00)
[2020-05-02] MEDS ORDERED: HALOPERIDOL LACTATE 5 MG/1 ML INJ IM PRN (22:09)
[2020-05-02] MEDS ORDERED: HALOPERIDOL 5 MG TAB PO PRN (22:09)
[2020-05-02] MEDS ORDERED: LORazepam 2 MG/ML VIAL IM PRN (22:10)
[2020-05-02] MEDS ORDERED: LORazepam 2 MG TAB PO PRN (22:12)
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
[2020-05-03] MEDS ORDERED: LISINOPRIL 5 MG TAB PO SCH (10:00)
[2020-05-03] MEDS ORDERED: allopurinoL 100 MG TAB PO SCH (10:00)
[2020-05-03] MEDS ORDERED: risperiDONE 0.25 MG TAB PO SCH (10:00)
[2020-05-03] MEDS ORDERED: SPIRONOLACTONE 50 MG TAB PO SCH (10:00)
[2020-05-03] MEDS ORDERED: FUROSEMIDE 40 MG TAB PO SCH (10:00)
[2020-05-03] MEDS ORDERED: ESOMEPRAZOLE MAGNESIUM 40 MG PO SCH (10:00)
[2020-05-03] MEDS ORDERED: PANTOPRAZOLE 40 MG TAB PO SCH (10:00)
[2020-05-03] MEDS ORDERED: guaiFENesin ER 600 MG TAB PO SCH (10:00)
[2020-05-03] MEDS ORDERED: NON-FORMULARY EACH (Fluticasone/Salmeterol [Advair Diskus 100-50 Mcg] 1 PUFF) IH SCH (10:00)
[2020-05-03] MEDS ORDERED: TRIAMCINOLONE 0.1% CREAM 15 GM TP SCH (14:00)
[2020-05-03] MEDS ORDERED: ARFORMOTEROL 15 MCG/2 ML NEBU IH SCH (20:00)
[2020-05-03] MEDS ORDERED: BUDESONIDE 0.5 MG/2 ML NEBU IH SCH (20:00)
== END 2020-05-02 19:21 | disposition home or self-care (01) ==
LOC: ED 14:45 → 5A 20:25 → UNDOADMIN 20:25
DX: F20.9 Schizophrenia, unspecified (principal); I11.0 Hypertensive heart disease with heart failure; I50.9 Heart failure, unspecified; K21.9 Gastro-esophageal reflux disease without esophagitis; J44.9 Chronic obstructive pulmonary disease, unspecified; F17.200 Nicotine dependence, unspecified, uncomplicated; Z98.890 Other specified postprocedural states; Z79.899 Other long term (current) drug therapy
CPT/HCPCS: 36415; 80053; 80307; 80320; 81001; 82550; 82962; 83735; 85025; G0378; G0480

== ENCOUNTER 2020-05-02 17:48 | Inpatient (IN) | payer MEDICARE ==
[2020-05-03] MEDS ORDERED: HALOPERIDOL LACTATE 5 MG/1 ML INJ IM PRN (12:34)
[2020-05-03] MEDS ORDERED: HALOPERIDOL 5 MG TAB PO PRN (12:35)
[2020-05-03] MEDS ORDERED: LORazepam 2 MG/ML VIAL IM PRN (12:36)
[2020-05-03] MEDS ORDERED: LORazepam 2 MG TAB PO PRN (12:36)
[2020-05-03] MEDS ORDERED: guaiFENesin ER 600 MG TAB PO SCH (13:00)
[2020-05-03] MEDS: TRIAMCINOLONE 0.1% CREAM 15 GM TP SCH ×2 (14:18→22:05)
[2020-05-03 16:26] LABS: Chol/HDL Ratio 3.56 %
--- NOTE | 2020-05-03 16:48 | Consultation ---
History of Present Illness - Reason for Consult Consult date: 05/03/20 - History of Present Illness 59 yo male admitted to Ger[facility] unit and consult called for med management. Pt denies any medical complaints. PMH HTN, GERD and tinea pedis. Past History Past Medical History: GERD, hypertension Past Surgical History: No surgical history Social history: no significant social history Family history: no significant family history Medications and Allergies Allergies Allergy/AdvReac Type Severity Reaction Status Date / Time No Known Allergies Allergy Verified 05/10/19 10:18 Home Medications Medication Instructions Recorded Confirmed Last Taken Type Pantoprazole [Protonix TAB] 40 mg PO QDAY #30 tablet 05/29/17 05/02/20 Unknown Rx Furosemide [Lasix TAB] 40 mg PO QDAY #30 tablet 03/01/18 05/02/20 Unknown Rx Lisinopril [Zestril TAB] 2.5 mg PO QDAY #30 tab 03/01/18 05/02/20 Unknown Rx allopurinoL [Zyloprim] 100 mg PO QDAY #30 tablet 03/01/18 05/02/20 Unknown Rx Spironolactone [Aldactone] 50 mg PO QDAY #30 tablet 08/11/18 05/02/20 Unknown Rx Esomeprazole Magnesium 40 mg PO DAILY #30 capsule. 11/05/18 05/02/20 Unknown Rx Clindamycin [Clindamycin CAP] 600 mg PO BID #14 capsule 05/11/19 05/02/20 Unknown Rx Fluticasone/Salmeterol [Advair 1 puff IH BID 30 Days blst.w.dev 07/26/19 05/02/20 Unknown Rx Diskus 100-50 mcg] Triamcinolone 0.1% [Kenalog 0.1% 1 applic TP TID #2 tube 07/26/19 05/02/20 Unknown Rx CREAM] guaiFENesin ER [Mucinex ER] 600 mg PO Q12H #14 tablet.er 07/26/19 05/02/20 Unknown Rx Active Meds: Active Medications Allopurinol (Zyloprim) 100 mg PO QDAY [facility] Arformoterol Tartrate (Brovana Nebu) 15 mcg IH Q12HRT [facility] Budesonide (Pulmicort) 0.5 mg IH Q12HRT [facility] Furosemide (Lasix) 40 mg PO QDAY [facility] Guaifenesin (Mucinex Er) 600 mg PO Q12H [facility] Last Admin: 05/03/20 15:00 Dose: 600 mg Documented by: Haloperidol (Haldol) 5 mg PO Q6H PRN PRN Reason: Agitation Haloperidol Lactate (Haldol) 5 mg IM Q6H PRN PRN Reason: Agitation Lisinopril (Zestril) 2.5 mg PO QDAY [facility] Lorazepam (Ativan) 2 mg IM Q6H PRN PRN Reason: Agitation Lorazepam (Ativan) 2 mg PO Q6H PRN PRN Reason: Agitation Pantoprazole Sodium (Protonix) 40 mg PO QDAY [facility] Risperidone (Risperdal) 0.25 mg PO BID [facility] Spironolactone (Aldactone) 50 mg PO QDAY [facility] Trazodone HCl (Desyrel) 50 mg PO QHS [facility] Triamcinolone Acetonide (Kenalog) 1 applic TP TID [facility] Last Admin: 05/03/20 14:18 Dose: 1 applic Documented by: Review of Systems All systems: negative Exam - Constitutional General appearance: Present: no acute distress, well-nourished - EENT Eyes: Present: PERRL ENT: hearing intact, clear oral mucosa - Neck Neck: Present: supple, normal ROM - Respiratory Respiratory effort: normal Respiratory: bilateral: CTA - Cardiovascular Heart Sounds: Present: S1 & S2. Absent: rub, click - Extremities Extremities: pulses symmetrical, No edema Peripheral Pulses: within normal limits - Abdominal General gastrointestinal: Present: soft, non-tender, non-distended, normal bowel sounds Male genitourinary: Present: normal - Integumentary Integumentary: Present: clear, warm, dry - Musculoskeletal Musculoskeletal: gait normal, strength equal bilaterally - Psychiatric Psychiatric: appropriate mood/affect, intact judgment & insight - Neurologic Neurologic: CNII-XII intact, moves all extremities Assessment and Plan HTN. Resume lisinopril. F/U BMP GERD. PPI prohylaxis.
[2020-05-03 17:28] LABS: Basophils % (Auto) 0.5 % (0.0-1.8); Eosinophils # (Auto) 0.1 K/mm3 (0.0-0.4); Eosinophils % (Auto) 1.4 % (0.0-4.3); Hematocrit 38.3 % (35.5-45.6); Hemoglobin 13.2 gm/dl (11.8-15.2); Lymphocytes % (Auto) 35.3 % (13.4-35.0); Mean Corpuscular HGB Conc 35 % (32-34); Mean Corpuscular Volume 96 fl (84-94); Monocytes # (Auto) 0.6 K/mm3 (0.0-0.8); Monocytes % (Auto) 10.3 % (0.0-7.3); Platelet Count 174 K/mm3 (140-440); Red Blood Count 3.99 M/mm3 (3.65-5.03); Red Cell Distribution Width 13.6 % (13.2-15.2)
[2020-05-03 17:30] LABS: BUN/Creatinine Ratio 11; Blood Urea Nitrogen 9 mg/dL (9-20); Hemolysis Index 25
[2020-05-03] MEDS: ARFORMOTEROL 15 MCG/2 ML NEBU IH SCH (21:49)
[2020-05-03] MEDS: BUDESONIDE 0.5 MG/2 ML NEBU IH SCH (21:49)
[2020-05-03] MEDS ORDERED: risperiDONE 0.25 MG TAB PO SCH (22:00)
[2020-05-03] MEDS: traZODone 50 MG TAB PO SCH (22:05)
--- NOTE | 2020-05-04 07:50 | History and Physical Report ---
GP History & Physical - History of Present Illness Date of admission: 05/02/20 Date of Examination: 05/03/20 Reason for Admission: Danger to others History of Present Illness: Rajiv Peña is a 59y/o male patient who was admitted to the [facility] floor for homicidal ideation, per chart. He is a/o x 3. He seems withdrawn. During my interview with the patient, he states he was admitted because of "voices in my head." He says, "they had me wired up." The patient denies suicidal or homicidal thoughts at present. He says he "heard the voices this morning, but not right now." When asking the patient what were the voices saying to him, he replied, "not really that much. Mostly in my head." He could not tell specifically what the voices were saying. The patient says he's never attempted suicide in the past. He says he's been admitted for psych related conditions, "4 to 5 times." The patient says he was diagnosed with "schizophrenia, but been off meds." He says he "did not remember all of his meds." He describes his mood as "somewhat depressed." The patient denies any problems with his appetite or sleep. He denies any illicit drug use or nicotine use. The patient says he drinks "occasionally." PAST PSYCHIATRIC HISTORY Diagnoses: Schizophrenia Suicide attempts or Self-harm behavior: Denies Prior psychiatric hospitalizations: "4 or 5" Substance Abuse history: Denies Previous psychiatric medications tried: Can't recall name of meds Outpatient treatment: Not at present PAST MEDICAL HISTORY: None reported Family Psychiatric History: None reported or documented SOCIAL HISTORY Marital Status: Single Living Arrangements: Boarding house Employment Status: Disableed Access to guns/weapons: Denies Education: 3 years of college History of Abuse: Denies Legal History: Denies REVIEW OF SYSTEMS Constitutional: Negative for weight loss ENT: Negative for stridor Respiratory: Negative for cough or hemoptysis All other systems reviewed and are negative MENTAL STATUS EXAMINATION General Appearance: Dressed appropriately. Poor eye contact Behavior: Withdrawn, cooperative Speech: Normal rate and pace Mood: "somewhat depressed" Affect: Congruent with stated mood Thought Process: Goal directed Thought Content Suicidal Ideation: Denies Homicidal Ideation: Denies Hallucinations: Auditory Delusions: None elicited Insight/Judgment: Limited Memory/Cognition: Limited Assessment and Plan Schizoaffective Disorder Treatment Plan Patient will be admitted for inpatient psychiatric evaluation, medication adjustment and close monitoring The patient's behavior, mood, sleep and appetite will be closely monitored. Patient will be enrolled in individual and group therapeutic sessions and encouraged to attend. Patient will be provided with a safe and structured environment. Patient's physical health needs will be addressed by the Hospitalist. Hospitalist Consulted Labs including CBC, CMP, Lipid profile and Hemoglobin A1C ordered Social Assessment will be completed and the Compressed Gas Tester will work with patient and family to ensure a suitable and safe disposition Medication adjustment will be made as clinically indicated Usual Wellness Episcopalian/Preservation: - Risperidone 0.25mg po BID The patient agreed on the treatment plan, understood the risk, benefit, alternative treatment, potential consequence of no treatment, and gave informed consent. This is an acknowledgement statement that Rajiv Peña is a 59y/o male patient who requires inpatient psychiatric admission for treatment which could reasonably be expected to improve the patient's condition for Schizoaffective Disorder Estimated period of time patient will need to remain in the hospital: [7] Outpatient treatment upon discharge Legal Status: Voluntary Reaction to Hospitalization: Accepting Medications and Allergies Allergies Allergy/AdvReac Type Severity Reaction Status Date / Time No Known Allergies Allergy Verified 05/10/19 10:18 Home Medications Medication Instructions Recorded Confirmed Last Taken Type Pantoprazole [Protonix TAB] 40 mg PO QDAY #30 tablet 05/29/17 05/04/20 Unknown Rx Furosemide [Lasix TAB] 40 mg PO QDAY #30 tablet 03/01/18 05/04/20 Unknown Rx allopurinoL [Zyloprim] 100 mg PO QDAY #30 tablet 03/01/18 05/04/20 Unknown Rx Spironolactone [Aldactone] 50 mg PO QDAY #30 tablet 08/11/18 05/04/20 Unknown Rx Esomeprazole Magnesium 40 mg PO DAILY #30 capsule. 11/05/18 05/04/20 Unknown Rx Clindamycin [Clindamycin CAP] 600 mg PO BID #14 capsule 05/11/19 05/04/20 Unknown Rx Fluticasone/Salmeterol [Advair 1 puff IH BID 30 Days blst.w.dev 07/26/19 05/04/20 Unknown Rx Diskus 100-50 mcg] Triamcinolone 0.1% [Kenalog 0.1% 1 applic TP TID #2 tube 07/26/19 05/04/20 Unknown Rx CREAM] guaiFENesin ER [Mucinex ER] 600 mg PO Q12H #14 tablet.er 07/26/19 05/04/20 Unknown Rx AtorvaSTATin [Lipitor] 40 mg PO DAILY 05/04/20 05/04/20 Unknown History Lisinopril [Zestril TAB] 20 mg PO QDAY 05/04/20 05/04/20 Unknown History carvediloL [Coreg] 12.5 mg PO BID 05/04/20 05/04/20 Unknown History Active Meds: Active Medications Haloperidol (Haldol) 5 mg PO Q6H PRN PRN Reason: Agitation Last Admin: 05/02/20 22:28 Dose: 5 mg Documented by: Haloperidol Lactate (Haldol) 5 mg IM Q6H PRN PRN Reason: Agitation Lorazepam (Ativan) 2 mg IM Q6H PRN PRN Reason: Agitation Lorazepam (Ativan) 2 mg PO Q6H PRN PRN Reason: Agitation Trazodone HCl (Desyrel) 50 mg PO QHS LIUDMILA Last Admin: 05/02/20 22:28 Dose: 50 mg Documented by: Results - Results Labs/Vitals: Laboratory Last Values WBC 5.9 K/mm3 (4.5-11.0) 05/02/20 15:17 RBC 4.06 M/mm3 (3.65-5.03) 05/02/20 15:17 Hgb 13.6 gm/dl (11.8-15.2) 05/02/20 15:17 Hct 38.4 % (35.5-45.6) 05/02/20 15:17 MCV 95 fl (84-94) H 05/02/20 15:17 MCH 34 pg (28-32) H 05/02/20 15:17 MCHC 35 % (32-34) H 05/02/20 15:17 RDW 13.6 % (13.2-15.2) 05/02/20 15:17 Plt Count 186 K/mm3 (140-440) 05/02/20 15:17 Lymph % (Auto) 29.9 % (13.4-35.0) 05/02/20 15:17 [place] % (Auto) 10.8 % (0.0-7.3) H 05/02/20 15:17 Eos % (Auto) 1.3 % (0.0-4.3) 05/02/20 15:17 Baso % (Auto) 0.4 % (0.0-1.8) 05/02/20 15:17 Lymph # 1.8 K/mm3 (1.2-5.4) 05/02/20 15:17 [place] # 0.6 K/mm3 (0.0-0.8) 05/02/20 15:17 Eos # 0.1 K/mm3 (0.0-0.4) 05/02/20 15:17 Baso # 0.0 K/mm3 (0.0-0.1) 05/02/20 15:17 Seg Neutrophils % 57.6 % (40.0-70.0) 05/02/20 15:17 Seg Neutrophils # 3.4 K/mm3 (1.8-7.7) 05/02/20 15:17 Sodium 137 mmol/L (137-145) 05/02/20 15:17 Potassium 4.1 mmol/L (3.6-5.0) 05/02/20 15:17 Chloride 101.3 mmol/L (98-107) 05/02/20 15:17 Carbon Dioxide 24 mmol/L (22-30) 05/02/20 15:17 Anion Gap 16 mmol/L 05/02/20 15:17 BUN 8 mg/dL (9-20) L 05/02/20 15:17 Creatinine 0.7 mg/dL (0.8-1.5) L 05/02/20 15:17 Estimated GFR > 60 ml/min 05/02/20 15:17 BUN/Creatinine Ratio 11 % 05/02/20 15:17 Glucose 107 mg/dL (75-100) H 05/02/20 15:17 POC Glucose 115 (70-105) H 05/02/20 22:10 Calcium 9.2 mg/dL (8.4-10.2) 05/02/20 15:17 Magnesium 2.20 mg/dL (1.7-2.3) 05/02/20 15:17 Total Bilirubin 0.30 mg/dL (0.1-1.2) 05/02/20 15:17 AST 21 units/L (5-40) 05/02/20 15:17 ALT 21 units/L (7-56) 05/02/20 15:17 Alkaline Phosphatase 80 units/L (35-129) 05/02/20 15:17 Total Creatine Kinase 209 units/L (55-170) H 05/02/20 15:17 Total Protein 7.3 g/dL (6.3-8.2) 05/02/20 15:17 Albumin 3.8 g/dL (3.9-5) L 05/02/20 15:17 Albumin/Globulin Ratio 1.1 % 05/02/20 15:17 Urine Color Yellow (Yellow) 05/02/20 16:13 Urine Turbidity Clear (Clear) 05/02/20 16:13 Urine pH 6.0 (5.0-7.0) 05/02/20 16:13 Ur Specific [place] 1.025 (1.003-1.030) 05/02/20 16:13 Urine Protein <15 mg/dl mg/dL (Negative) 05/02/20 16:13 Urine Glucose (UA) Neg mg/dL (Negative) 05/02/20 16:13 Urine Ketones Neg mg/dL (Negative) 05/02/20 16:13 Urine Blood Sm (Negative) 05/02/20 16:13 Urine Nitrite Neg (Negative) 05/02/20 16:13 Urine Bilirubin Neg (Negative) 05/02/20 16:13 Urine Urobilinogen 4.0 mg/dL (<2.0) 05/02/20 16:13 Ur Leukocyte Esterase Neg (Negative) 05/02/20 16:13 Urine WBC (Auto) 1.0 /HPF (0.0-6.0) 05/02/20 16:13 Urine RBC (Auto) 23.0 /HPF (0.0-6.0) 05/02/20 16:13 U Epithel Cells (Auto) 4.0 /HPF (0-13.0) 05/02/20 16:13 Urine Mucus 3+ /HPF 05/02/20 16:13 Salicylates < 0.3 mg/dL (2.8-20.0) L 05/02/20 15:17 Urine Opiates Screen Presumptive negative 05/02/20 16:13 Urine Methadone Screen Presumptive negative 05/02/20 16:13 Acetaminophen < 5.0 ug/mL (10.0-30.0) L 05/02/20 15:17 Ur Barbiturates Screen Presumptive negative 05/02/20 16:13 Ur Phencyclidine Scrn Presumptive negative 05/02/20 16:13 Ur Amphetamines Screen Presumptive negative 05/02/20 16:13 U Benzodiazepines Scrn Presumptive negative 05/02/20 16:13 Urine Cocaine Screen Presumptive negative 05/02/20 16:13 U Marijuana (THC) Screen Presumptive negative 05/02/20 16:13 Drugs of Abuse Note Disclamer 05/02/20 16:13 Plasma/Serum Alcohol < 0.01 % (0-0.07) 05/02/20 15:17 Last Vital Signs Temp 98.4 F 05/02/20 15:50 Pulse 81 05/02/20 15:50 Resp 20 05/02/20 15:50 BP 132/66 05/02/20 15:50 Pulse Ox 97 05/02/20 15:50 Physical Examination - Constitutional Vitals: Vital Signs Temp Pulse Resp BP Pulse Ox 98.4 F 81 20 132/66 97 05/02/20 15:50 05/02/20 15:50 05/02/20 15:50 05/02/20 15:50 05/02/20 15:50 Temperature -Last 24 Hours Temperature 98.4 F Temperature 97.9 F Mental Status Exam - Vital signs Last Vital Signs Temp 98.4 F 05/02/20 15:50 Pulse 81 05/02/20 15:50 Resp 20 05/02/20 15:50 BP 132/66 05/02/20 15:50 Pulse Ox 97 05/02/20 15:50 Physician Certification - Certification Statement Physician Certification Statement: This is an acknowledgement statement that RAJIV PEÑA is a 59 year old M who requires inpatient psychiatric admission for treatment which could reasonably be expected to improve the patient's condition for Estimated period of time patient will need to remain in the hospital: [ ] Plan for post-hospital care: [ ]
--- NOTE | 2020-05-04 08:04 | Progress Note ---
Subjective Date of service: 05/04/20 Principal diagnosis: Schizoaffective Disorder Subjective Comment: The patient's medical record was reviewed and the patient's progress was discussed with the nursing staff. The nurse note states the patient is isolative and withdrawn with no peer and staff interaction. Pt response is yes or no. He is guarded and is unwilling to verbalize his thoughts or feeling. He appears sad and maintains a flat affect. He is cooperative and compliant with routine meds. During my interview with the patient this morning, he was sitting in the dayroom. He is not conversational and appears withdrawn. He is a/o x 3. He makes poor eye contact. His affect is flat. He verbalizes being "depressed." He says, "feel stressed. My thoughts are blurred." The patient states he hears voices. He says "they not saying too much." He says, "they are telling me people can read my thoughts." He then says, "it's like something is in me." He says "at times I feel suicidal but not right now," when asking him about any self harm thoughts. He denies homicidal thoughts and hallucinations of any kind. The patient says he slept "okay." He denies any problems with his appetite. Reason for continued inpatient treatment: The patient is depressed, suicidal, and hallucinating. Will continue to stabilize. REVIEW OF SYSTEMS Constitutional: Negative for weight loss ENT: Negative for stridor Respiratory: Negative for cough or hemoptysis All other systems reviewed and are negative MENTAL STATUS EXAMINATION General Appearance: Dressed appropriately. Poor eye contact Behavior: Withdrawn, calm, cooperative Speech: Normal rate and pace Mood: "depressed, stressed" Affect: Flat Thought Process: Goal directed Thought Content Suicidal Ideation: Yes Homicidal Ideation: Denies Hallucinations: Auditory Delusions: None elicited Insight/Judgment: Limited Memory/Cognition: Limited Assessment and Plan Schizoaffective Disorder Treatment Plan Patient will be admitted for inpatient psychiatric evaluation, medication adjustment and close monitoring The patient's behavior, mood, sleep and appetite will be closely monitored. Patient will be enrolled in individual and group therapeutic sessions and encouraged to attend. Patient will be provided with a safe and structured environment. Patient's physical health needs will be addressed by the Hospitalist. Hospitalist Consulted Labs including CBC, CMP, Lipid profile and Hemoglobin A1C ordered Social Assessment will be completed and the Supervisor Drying And Winding will work with patient and family to ensure a suitable and safe disposition Medication adjustment will be made as clinically indicated Usual Wellness Orthodox/Preservation: - Increase Risperidone 0.5mg po BID The patient agreed on the treatment plan, understood the risk, benefit, alternative treatment, potential consequence of no treatment, and gave informed consent. Estimated period of time patient will need to remain in the hospital: [6] Outpatient treatment upon discharge Medications and Allergies Allergies Allergy/AdvReac Type Severity Reaction Status Date / Time No Known Allergies Allergy Verified 05/10/19 10:18 Home Medications Medication Instructions Recorded Confirmed Last Taken Type Pantoprazole [Protonix TAB] 40 mg PO QDAY #30 tablet 05/29/17 05/04/20 Unknown Rx Furosemide [Lasix TAB] 40 mg PO QDAY #30 tablet 03/01/18 05/04/20 Unknown Rx allopurinoL [Zyloprim] 100 mg PO QDAY #30 tablet 03/01/18 05/04/20 Unknown Rx Spironolactone [Aldactone] 50 mg PO QDAY #30 tablet 08/11/18 05/04/20 Unknown Rx Esomeprazole Magnesium 40 mg PO DAILY #30 capsule. 11/05/18 05/04/20 Unknown Rx Clindamycin [Clindamycin CAP] 600 mg PO BID #14 capsule 05/11/19 05/04/20 Unknown Rx Fluticasone/Salmeterol [Advair 1 puff IH BID 30 Days blst.w.dev 07/26/19 05/04/20 Unknown Rx Diskus 100-50 mcg] Triamcinolone 0.1% [Kenalog 0.1% 1 applic TP TID #2 tube 07/26/19 05/04/20 Unknown Rx CREAM] guaiFENesin ER [Mucinex ER] 600 mg PO Q12H #14 tablet.er 07/26/19 05/04/20 Unknown Rx AtorvaSTATin [Lipitor] 40 mg PO DAILY 05/04/20 05/04/20 Unknown History Lisinopril [Zestril TAB] 20 mg PO QDAY 05/04/20 05/04/20 Unknown History carvediloL [Coreg] 12.5 mg PO BID 05/04/20 05/04/20 Unknown History Active Meds: Active Medications Allopurinol (Zyloprim) 100 mg PO QDAY LIUDMILA Arformoterol Tartrate (Brovana Nebu) 15 mcg IH Q12HRT [facility] Last Admin: 05/03/20 21:49 Dose: 15 mcg Documented by: Budesonide (Pulmicort) 0.5 mg IH Q12HRT [facility] Last Admin: 05/03/20 21:49 Dose: 0.5 mg Documented by: Furosemide (Lasix) 40 mg PO QDAY [facility] Guaifenesin (Mucinex Er) 600 mg PO Q12HR [facility] Haloperidol (Haldol) 5 mg PO Q6H PRN PRN Reason: Agitation Haloperidol Lactate (Haldol) 5 mg IM Q6H PRN PRN Reason: Agitation Lisinopril (Zestril) 2.5 mg PO QDAY [facility] Lorazepam (Ativan) 2 mg IM Q6H PRN PRN Reason: Agitation Lorazepam (Ativan) 2 mg PO Q6H PRN PRN Reason: Agitation Pantoprazole Sodium (Protonix) 40 mg PO QDAY [facility] Risperidone (Risperdal) 0.25 mg PO BID [facility] Last Admin: 05/03/20 22:05 Dose: 0.25 mg Documented by: Spironolactone (Aldactone) 50 mg PO QDAY [facility] Trazodone HCl (Desyrel) 50 mg PO QHS [facility] Last Admin: 05/03/20 22:05 Dose: 50 mg Documented by: Triamcinolone Acetonide (Kenalog) 1 applic TP TID [facility] Last Admin: 05/03/20 22:05 Dose: 1 applic Documented by: Results - Results Labs/Vitals: Laboratory Last Values WBC 5.5 K/mm3 (4.5-11.0) 05/03/20 15:48 RBC 3.99 M/mm3 (3.65-5.03) 05/03/20 15:48 Hgb 13.2 gm/dl (11.8-15.2) 05/03/20 15:48 Hct 38.3 % (35.5-45.6) 05/03/20 15:48 MCV 96 fl (84-94) H 05/03/20 15:48 MCH 33 pg (28-32) H 05/03/20 15:48 MCHC 35 % (32-34) H 05/03/20 15:48 RDW 13.6 % (13.2-15.2) 05/03/20 15:48 Plt Count 174 K/mm3 (140-440) 05/03/20 15:48 Lymph % (Auto) 35.3 % (13.4-35.0) H 05/03/20 15:48 [place] % (Auto) 10.3 % (0.0-7.3) H 05/03/20 15:48 Eos % (Auto) 1.4 % (0.0-4.3) 05/03/20 15:48 Baso % (Auto) 0.5 % (0.0-1.8) 05/03/20 15:48 Lymph # 2.0 K/mm3 (1.2-5.4) 05/03/20 15:48 [place] # 0.6 K/mm3 (0.0-0.8) 05/03/20 15:48 Eos # 0.1 K/mm3 (0.0-0.4) 05/03/20 15:48 Baso # 0.0 K/mm3 (0.0-0.1) 05/03/20 15:48 Seg Neutrophils % 52.5 % (40.0-70.0) 05/03/20 15:48 Seg Neutrophils # 2.9 K/mm3 (1.8-7.7) 05/03/20 15:48 Sodium 139 mmol/L (137-145) 05/03/20 15:48 Potassium 4.5 mmol/L (3.6-5.0) 05/03/20 15:48 Chloride 100.9 mmol/L (98-107) 05/03/20 15:48 Carbon Dioxide 25 mmol/L (22-30) 05/03/20 15:48 Anion Gap 18 mmol/L 05/03/20 15:48 BUN 9 mg/dL (9-20) 05/03/20 15:48 Creatinine 0.8 mg/dL (0.8-1.5) 05/03/20 15:48 Estimated GFR > 60 ml/min 05/03/20 15:48 BUN/Creatinine Ratio 11 % 05/03/20 15:48 Glucose 109 mg/dL (75-100) H 05/03/20 15:48 Hemoglobin A1c 6.0 % (4-6) 05/03/20 15:48 Calcium 9.0 mg/dL (8.4-10.2) 05/03/20 15:48 Triglycerides 111 mg/dL (2-149) 05/03/20 15:48 Cholesterol 146 mg/dL (50-199) 05/03/20 15:48 LDL Cholesterol Direct 102 mg/dL (50-130) 05/03/20 15:48 HDL Cholesterol 41 mg/dL (40-59) 05/03/20 15:48 Cholesterol/HDL Ratio 3.56 % 05/03/20 15:48 TSH 1.460 mlU/mL (0.270-4.200) 05/03/20 15:48 Last Vital Signs Temp 98.0 F 05/04/20 05:21 Pulse 60 05/04/20 05:21 Resp 14 05/04/20 05:21 BP 122/82 05/04/20 05:21 Pulse Ox 92 05/04/20 05:21
[2020-05-04] MEDS: ARFORMOTEROL 15 MCG/2 ML NEBU IH SCH ×2 (10:23→21:54)
[2020-05-04] MEDS: BUDESONIDE 0.5 MG/2 ML NEBU IH SCH ×2 (10:23→21:54)
[2020-05-04] MEDS: allopurinoL 100 MG TAB PO SCH (12:38)
[2020-05-04] MEDS: PANTOPRAZOLE 40 MG TAB PO SCH (12:39)
[2020-05-04] MEDS: risperiDONE 0.25 MG TAB PO SCH ×2 (12:39→21:19)
[2020-05-04] MEDS: guaiFENesin ER 600 MG TAB PO SCH ×2 (12:39→21:18)
[2020-05-04] MEDS: LISINOPRIL 5 MG TAB PO SCH (12:40)
[2020-05-04] MEDS: SPIRONOLACTONE 50 MG TAB PO SCH (12:40)
[2020-05-04] MEDS: FUROSEMIDE 40 MG TAB PO SCH (12:40)
[2020-05-04] MEDS: TRIAMCINOLONE 0.1% CREAM 15 GM TP SCH ×3 (12:44→20:34)
[2020-05-04] MEDS: traZODone 50 MG TAB PO SCH (21:18)
[2020-05-05] MEDS: TRIAMCINOLONE 0.1% CREAM 15 GM TP SCH ×2 (08:21→13:37)
--- NOTE | 2020-05-05 08:40 | Progress Note ---
Subjective Date of service: 05/05/20 Principal diagnosis: Schizoaffective Disorder Subjective Comment: The patient's medical record was reviewed and the patient's progress was discussed with the nursing staff. The nurse note states the patient is withdrawn to staff, responds to internal stimuli, and observed talking and laughing to staff. During my interview with the patient this morning, he was sitting in the dayroom. He is a/o x 3. His speech is tangential. He gets off the subject a lot. He is difficulty to follow. The patient describes his mood as "irritable, angry, up in the middle." The patient starts telling about "some marbella who was there and I didn't know what he had going on." The patient was redirected back to the subject. He says he slept "okay." He then starts talking about, "I'm talking about the marbella where I was. I don't think he's certified to do what he was doing." Reason for continued inpatient treatment: The patient withdrawn, depressed, and responding to internal stimuli. REVIEW OF SYSTEMS Constitutional: Negative for weight loss ENT: Negative for stridor Respiratory: Negative for cough or hemoptysis All other systems reviewed and are negative MENTAL STATUS EXAMINATION General Appearance: Dressed appropriately. Poor eye contact Behavior: Withdrawn, calm, cooperative Speech: Tangential Mood: "irritable, angry, up in the middle" Affect: Flat Thought Process: Tangential, Responding to internal stimuli Thought Content Suicidal Ideation: Denies Homicidal Ideation: Denies Hallucinations: Auditory Delusions: None elicited Insight/Judgment: Limited Memory/Cognition: Limited Assessment and Plan Schizoaffective Disorder Treatment Plan Patient will be admitted for inpatient psychiatric evaluation, medication adjustment and close monitoring The patient's behavior, mood, sleep and appetite will be closely monitored. Patient will be enrolled in individual and group therapeutic sessions and encouraged to attend. Patient will be provided with a safe and structured environment. Patient's physical health needs will be addressed by the Hospitalist. Hospitalist Consulted Labs including CBC, CMP, Lipid profile and Hemoglobin A1C ordered Social Assessment will be completed and the Cement Loader will work with patient and family to ensure a suitable and safe disposition Medication adjustment will be made as clinically indicated Usual Wellness Hindu/Preservation: - Increase Risperidone 1mg po BID - Start Depakote DR 125mg po BID The patient agreed on the treatment plan, understood the risk, benefit, alternative treatment, potential consequence of no treatment, and gave informed consent. Estimated period of time patient will need to remain in the hospital: [5] Outpatient treatment upon discharge Medications and Allergies Allergies Allergy/AdvReac Type Severity Reaction Status Date / Time No Known Allergies Allergy Verified 05/10/19 10:18 Home Medications Medication Instructions Recorded Confirmed Last Taken Type Pantoprazole [Protonix TAB] 40 mg PO QDAY #30 tablet 05/29/17 05/04/20 Unknown Rx Furosemide [Lasix TAB] 40 mg PO QDAY #30 tablet 03/01/18 05/04/20 Unknown Rx allopurinoL [Zyloprim] 100 mg PO QDAY #30 tablet 03/01/18 05/04/20 Unknown Rx Spironolactone [Aldactone] 50 mg PO QDAY #30 tablet 08/11/18 05/04/20 Unknown Rx Esomeprazole Magnesium 40 mg PO DAILY #30 capsule. 11/05/18 05/04/20 Unknown Rx Clindamycin [Clindamycin CAP] 600 mg PO BID #14 capsule 05/11/19 05/04/20 Unknown Rx Fluticasone/Salmeterol [Advair 1 puff IH BID 30 Days blst.w.dev 07/26/19 05/04/20 Unknown Rx Diskus 100-50 mcg] Triamcinolone 0.1% [Kenalog 0.1% 1 applic TP TID #2 tube 07/26/19 05/04/20 Unknown Rx CREAM] guaiFENesin ER [Mucinex ER] 600 mg PO Q12H #14 tablet.er 07/26/19 05/04/20 Unknown Rx AtorvaSTATin [Lipitor] 40 mg PO DAILY 05/04/20 05/04/20 Unknown History Lisinopril [Zestril TAB] 20 mg PO QDAY 05/04/20 05/04/20 Unknown History carvediloL [Coreg] 12.5 mg PO BID 05/04/20 05/04/20 Unknown History Active Meds: Active Medications Allopurinol (Zyloprim) 100 mg PO QDAY [facility] Last Admin: 05/04/20 12:38 Dose: 100 mg Documented by: Arformoterol Tartrate (Brovana Nebu) 15 mcg IH Q12HRT [facility] Last Admin: 05/04/20 21:54 Dose: 15 mcg Documented by: Budesonide (Pulmicort) 0.5 mg IH Q12HRT [facility] Last Admin: 05/04/20 21:54 Dose: 0.5 mg Documented by: Furosemide (Lasix) 40 mg PO QDAY [facility] Last Admin: 05/04/20 12:40 Dose: 40 mg Documented by: Guaifenesin (Mucinex Er) 600 mg PO Q12HR [facility] Last Admin: 05/04/20 21:18 Dose: 600 mg Documented by: Haloperidol (Haldol) 5 mg PO Q6H PRN PRN Reason: Agitation Haloperidol Lactate (Haldol) 5 mg IM Q6H PRN PRN Reason: Agitation Lisinopril (Zestril) 2.5 mg PO QDAY [facility] Last Admin: 05/04/20 12:40 Dose: 2.5 mg Documented by: Lorazepam (Ativan) 2 mg IM Q6H PRN PRN Reason: Agitation Lorazepam (Ativan) 2 mg PO Q6H PRN PRN Reason: Agitation Pantoprazole Sodium (Protonix) 40 mg PO QDAY [facility] Last Admin: 05/04/20 12:39 Dose: 40 mg Documented by: Risperidone (Risperdal) 0.5 mg PO BID [facility] Last Admin: 05/04/20 21:19 Dose: 0.5 mg Documented by: Spironolactone (Aldactone) 50 mg PO QDAY [facility] Last Admin: 05/04/20 12:40 Dose: 50 mg Documented by: Trazodone HCl (Desyrel) 50 mg PO QHS [facility] Last Admin: 05/04/20 21:18 Dose: 50 mg Documented by: Triamcinolone Acetonide (Kenalog) 1 applic TP TID [facility] Last Admin: 05/04/20 20:34 Dose: 1 applic Documented by: Results - Results Labs/Vitals: Laboratory Last Values WBC 5.5 K/mm3 (4.5-11.0) 05/03/20 15:48 RBC 3.99 M/mm3 (3.65-5.03) 05/03/20 15:48 Hgb 13.2 gm/dl (11.8-15.2) 05/03/20 15:48 Hct 38.3 % (35.5-45.6) 05/03/20 15:48 MCV 96 fl (84-94) H 05/03/20 15:48 MCH 33 pg (28-32) H 05/03/20 15:48 MCHC 35 % (32-34) H 05/03/20 15:48 RDW 13.6 % (13.2-15.2) 05/03/20 15:48 Plt Count 174 K/mm3 (140-440) 05/03/20 15:48 Lymph % (Auto) 35.3 % (13.4-35.0) H 05/03/20 15:48 [place] % (Auto) 10.3 % (0.0-7.3) H 05/03/20 15:48 Eos % (Auto) 1.4 % (0.0-4.3) 05/03/20 15:48 Baso % (Auto) 0.5 % (0.0-1.8) 05/03/20 15:48 Lymph # 2.0 K/mm3 (1.2-5.4) 05/03/20 15:48 [place] # 0.6 K/mm3 (0.0-0.8) 05/03/20 15:48 Eos # 0.1 K/mm3 (0.0-0.4) 05/03/20 15:48 Baso # 0.0 K/mm3 (0.0-0.1) 05/03/20 15:48 Seg Neutrophils % 52.5 % (40.0-70.0) 05/03/20 15:48 Seg Neutrophils # 2.9 K/mm3 (1.8-7.7) 05/03/20 15:48 Sodium 139 mmol/L (137-145) 05/03/20 15:48 Potassium 4.5 mmol/L (3.6-5.0) 05/03/20 15:48 Chloride 100.9 mmol/L (98-107) 05/03/20 15:48 Carbon Dioxide 25 mmol/L (22-30) 05/03/20 15:48 Anion Gap 18 mmol/L 05/03/20 15:48 BUN 9 mg/dL (9-20) 05/03/20 15:48 Creatinine 0.8 mg/dL (0.8-1.5) 05/03/20 15:48 Estimated GFR > 60 ml/min 05/03/20 15:48 BUN/Creatinine Ratio 11 % 05/03/20 15:48 Glucose 109 mg/dL (75-100) H 05/03/20 15:48 Hemoglobin A1c 6.0 % (4-6) 05/03/20 15:48 Calcium 9.0 mg/dL (8.4-10.2) 05/03/20 15:48 Triglycerides 111 mg/dL (2-149) 05/03/20 15:48 Cholesterol 146 mg/dL (50-199) 05/03/20 15:48 LDL Cholesterol Direct 102 mg/dL (50-130) 05/03/20 15:48 HDL Cholesterol 41 mg/dL (40-59) 05/03/20 15:48 Cholesterol/HDL Ratio 3.56 % 05/03/20 15:48 TSH 1.460 mlU/mL (0.270-4.200) 05/03/20 15:48 Last Vital Signs Temp 97.7 F 05/05/20 08:03 Pulse 69 05/05/20 08:03 Resp 18 05/05/20 08:03 BP 131/82 05/05/20 08:03 Pulse Ox 97 05/05/20 08:03
[2020-05-05] MEDS: PANTOPRAZOLE 40 MG TAB PO SCH (09:19)
[2020-05-05] MEDS: LISINOPRIL 5 MG TAB PO SCH (09:19)
[2020-05-05] MEDS: FUROSEMIDE 40 MG TAB PO SCH (09:19)
[2020-05-05] MEDS: SPIRONOLACTONE 50 MG TAB PO SCH (09:20)
[2020-05-05] MEDS: allopurinoL 100 MG TAB PO SCH (09:20)
[2020-05-05] MEDS: guaiFENesin ER 600 MG TAB PO SCH ×2 (09:21→22:23)
[2020-05-05] MEDS: risperiDONE 1 MG TAB PO SCH ×2 (09:25→22:23)
[2020-05-05] MEDS: DIVALPROEX DR 125 MG TAB PO SCH ×2 (09:25→22:23)
[2020-05-05] MEDS: ARFORMOTEROL 15 MCG/2 ML NEBU IH SCH ×2 (17:18→22:42)
[2020-05-05] MEDS: BUDESONIDE 0.5 MG/2 ML NEBU IH SCH ×2 (17:19→22:42)
[2020-05-05] MEDS: traZODone 50 MG TAB PO SCH (22:23)
--- NOTE | 2020-05-06 07:15 | Progress Note ---
Subjective Date of service: 05/06/20 Principal diagnosis: Schizoaffective Disorder Subjective Comment: Per Psych Nurse: Patient spent the evening interacting appropriately with peers and staff. He was observed talking to and laughing with himself. He was me dication compliant. Will continue to monitor patient for safety. Psych Progress HPI Patient seen this AM sitting in the ady chair, states he his doing okay but then cointinued to talk about financial problmes, says he knows people that doesnt exist talks to him and he knows they are not real, and sometimes they grab him by the hand. Patient states he also has pain medication in bottles at home, but does not like where he currenlty stays because people there are not logic and comprehensive. Patient endorses hearing voices regularly cursing him and telling him to do this. Reason for continuing inpatient treatment: Patient exhibits increased talkativity, flights of ideas, confusion and Paranoia associated with auditory hallucinations. Will adjust meds and observe for dose responses. Risperidone increased to 2mg BID and deparkote 500 mg BID Review of Symptoms: Constitutional: Negative for weight loss ENT: Negative for stridor Respiratory: Negative for cough or hemoptysis All other systems reviewed and are negative MENTAL STATUS EXAMINATION General Appearance and Behavior: Age appropriate, poor/fair/good hygiene, wearing appropriate clothes, lying in bed, good/poor eye contact, cooperative/uncooperative polite/irritable with questioning. Cooperation: Participating/engaged, Withdrawn, Isolative, Threatening, Cooperative, Hostile and Guarded Psychomotor Behavior: Psychomotor agitation, psychomotor retardation, unremarkable and within normal limits Mood: Good, OK, Anxious, Depressed, Great, I don't know and so-so Affect and affective range: Angry, anxious, constricted, decreased range, depressed, dysthymic, euphoric, euthymic, irritable, labile and sad Thought Process: Fluent/Logical, Tangential, Circumstantial, Perseverative, Illogical, Goal-directed, Rambling, Pressured, Blocked, Fragmented and Loose associations Thought Content: Within reality, Poverty, Obsessions, Flight of ideas, Illogical, Grandiose, Phobia Paranoid, Ideas of reference, Hallucinations including auditory, visual, tactile and olfactory, Hopelessness, Helplessness, Phobia and Paranoid Speech: Normal volume, Regular rate and rhythm, pressured, loud volume, soft volume, stutter, paucity of speech, difficulty to understand, abnormalities in production of speech, confused and blocking Intellectual Functioning: Average Suicidal Ideation: Denies SI/Suicidal Homicidal Ideation: Denies HI/Homicidal Impulse Control: Impaired/Unimpaired Insight and Judgment: Normal insight and judgment, Limited insight and judgment, Impaired Memory: Normal, Short term memory intact, Short term memory impaired, intermodal truck driver memory intact, prison memory impaired, Prospective memory intact and Prospective memory impaired Attention: Normal, Distractible, Sustained attention intact, Sustained attention impaired, Divided attention intact and Divided attention impaired Orientation: Alert, oriented, anxious, confused, delirious and demented Assessment and Plan Schizoaffective Disorder Treatment Plan Patient will be admitted for inpatient psychiatric evaluation, medication adjustment and close monitoring The patient's behavior, mood, sleep and appetite will be closely monitored. Patient will be enrolled in individual and group therapeutic sessions and encouraged to attend. Patient will be provided with a safe and structured environment. Patient's physical health needs will be addressed by the Hospitalist. Hospitalist Consulted Labs including CBC, CMP, Lipid profile and Hemoglobin A1C ordered Social Assessment will be completed and the Thermodynamicist will work with patient and family to ensure a suitable and safe disposition Medication adjustment will be made as clinically indicated Usual Wellness Restorationist/Preservation: - Increase Risperidone 2mg po BID - Start Depakote DR 500mg po BID The patient agreed on the treatment plan, understood the risk, benefit, alternative treatment, potential consequence of no treatment, and gave informed consent. Estimated period of time patient will need to remain in the hospital: [5] Outpatient treatment upon discharge Medications and Allergies Allergies Allergy/AdvReac Type Severity Reaction Status Date / Time No Known Allergies Allergy Verified 05/10/19 10:18 Home Medications Medication Instructions Recorded Confirmed Last Taken Type Pantoprazole [Protonix TAB] 40 mg PO QDAY #30 tablet 05/29/17 05/04/20 Unknown Rx Furosemide [Lasix TAB] 40 mg PO QDAY #30 tablet 03/01/18 05/04/20 Unknown Rx allopurinoL [Zyloprim] 100 mg PO QDAY #30 tablet 03/01/18 05/04/20 Unknown Rx Spironolactone [Aldactone] 50 mg PO QDAY #30 tablet 08/11/18 05/04/20 Unknown Rx Esomeprazole Magnesium 40 mg PO DAILY #30 capsule. 11/05/18 05/04/20 Unknown Rx Clindamycin [Clindamycin CAP] 600 mg PO BID #14 capsule 05/11/19 05/04/20 Unknown Rx Fluticasone/Salmeterol [Advair 1 puff IH BID 30 Days blst.w.dev 07/26/19 05/04/20 Unknown Rx Diskus 100-50 mcg] Triamcinolone 0.1% [Kenalog 0.1% 1 applic TP TID #2 tube 07/26/19 05/04/20 Unknown Rx CREAM] guaiFENesin ER [Mucinex ER] 600 mg PO Q12H #14 tablet.er 07/26/19 05/04/20 U nknown Rx AtorvaSTATin [Lipitor] 40 mg PO DAILY 05/04/20 05/04/20 Unknown History Lisinopril [Zestril TAB] 20 mg PO QDAY 05/04/20 05/04/20 Unknown History carvediloL [Coreg] 12.5 mg PO BID 05/04/20 05/04/20 Unknown History Active Meds: Active Medications Allopurinol (Zyloprim) 100 mg PO QDAY [facility] Last Admin: 05/05/20 09:20 Dose: 100 mg Documented by: Arformoterol Tartrate (Brovana Nebu) 15 mcg IH Q12HRT [facility] Last Admin: 05/05/20 22:42 Dose: Not Given Documented by: Budesonide (Pulmicort) 0.5 mg IH Q12HRT [facility] Last Admin: 05/05/20 22:42 Dose: Not Given Documented by: Divalproex Sodium (Depakote Dr) 125 mg PO BID [facility] Last Admin: 05/05/20 22:23 Dose: 125 mg Documented by: Furosemide (Lasix) 40 mg PO QDAY [facility] Last Admin: 05/05/20 09:19 Dose: 40 mg Documented by: Guaifenesin (Mucinex Er) 600 mg PO Q12HR [facility] Last Admin: 05/05/20 22:23 Dose: 600 mg Documented by: Haloperidol (Haldol) 5 mg PO Q6H PRN PRN Reason: Agitation Haloperidol Lactate (Haldol) 5 mg IM Q6H PRN PRN Reason: Agitation Lisinopril (Zestril) 2.5 mg PO QDAY [facility] Last Admin: 05/05/20 09:19 Dose: 2.5 mg Documented by: Lorazepam (Ativan) 2 mg IM Q6H PRN PRN Reason: Agitation Lorazepam (Ativan) 2 mg PO Q6H PRN PRN Reason: Agitation Pantoprazole Sodium (Protonix) 40 mg PO QDAY [facility] Last Admin: 05/05/20 09:19 Dose: 40 mg Documented by: Risperidone (Risperdal) 1 mg PO BID [facility] Last Admin: 05/05/20 22:23 Dose: 1 mg Documented by: Spironolactone (Aldactone) 50 mg PO QDAY [facility] Last Admin: 05/05/20 09:20 Dose: 50 mg Documented by: Trazodone HCl (Desyrel) 50 mg PO QHS [facility] Last Admin: 05/05/20 22:23 Dose: 50 mg Documented by: Triamcinolone Acetonide (Kenalog) 1 applic TP TID [facility] Last Admin: 05/05/20 13:37 Dose: 1 applic Documented by: Results - Results Labs/Vitals: Laboratory Last Values WBC 5.5 K/mm3 (4.5-11.0) 05/03/20 15:48 RBC 3.99 M/mm3 (3.65-5.03) 05/03/20 15:48 Hgb 13.2 gm/dl (11.8-15.2) 05/03/20 15:48 Hct 38.3 % (35.5-45.6) 05/03/20 15:48 MCV 96 fl (84-94) H 05/03/20 15:48 MCH 33 pg (28-32) H 05/03/20 15:48 MCHC 35 % (32-34) H 05/03/20 15:48 RDW 13.6 % (13.2-15.2) 05/03/20 15:48 Plt Count 174 K/mm3 (140-440) 05/03/20 15:48 Lymph % (Auto) 35.3 % (13.4-35.0) H 05/03/20 15:48 [place] % (Auto) 10.3 % (0.0-7.3) H 05/03/20 15:48 Eos % (Auto) 1.4 % (0.0-4.3) 05/03/20 15:48 Baso % (Auto) 0.5 % (0.0-1.8) 05/03/20 15:48 Lymph # 2.0 K/mm3 (1.2-5.4) 05/03/20 15:48 [place] # 0.6 K/mm3 (0.0-0.8) 05/03/20 15:48 Eos # 0.1 K/mm3 (0.0-0.4) 05/03/20 15:48 Baso # 0.0 K/mm3 (0.0-0.1) 05/03/20 15:48 Seg Neutrophils % 52.5 % (40.0-70.0) 05/03/20 15:48 Seg Neutrophils # 2.9 K/mm3 (1.8-7.7) 05/03/20 15:48 Sodium 139 mmol/L (137-145) 05/03/20 15:48 Potassium 4.5 mmol/L (3.6-5.0) 05/03/20 15:48 Chloride 100.9 mmol/L (98-107) 05/03/20 15:48 Carbon Dioxide 25 mmol/L (22-30) 05/03/20 15:48 Anion Gap 18 mmol/L 05/03/20 15:48 BUN 9 mg/dL (9-20) 05/03/20 15:48 Creatinine 0.8 mg/dL (0.8-1.5) 05/03/20 15:48 Estimated GFR > 60 ml/min 05/03/20 15:48 BUN/Creatinine Ratio 11 % 05/03/20 15:48 Glucose 109 mg/dL (75-100) H 05/03/20 15:48 Hemoglobin A1c 6.0 % (4-6) 05/03/20 15:48 Calcium 9.0 mg/dL (8.4-10.2) 05/03/20 15:48 Triglycerides 111 mg/dL (2-149) 05/03/20 15:48 Cholesterol 146 mg/dL (50-199) 05/03/20 15:48 LDL Cholesterol Direct 102 mg/dL (50-130) 05/03/20 15:48 HDL Cholesterol 41 mg/dL (40-59) 05/03/20 15:48 Cholesterol/HDL Ratio 3.56 % 05/03/20 15:48 TSH 1.460 mlU/mL (0.270-4.200) 05/03/20 15:48 Last Vital Signs Temp 98.5 F 05/05/20 22:00 Pulse 64 05/05/20 19:20 Resp 18 05/05/20 22:00 BP 131/75 05/05/20 19:20 Pulse Ox 98 05/05/20 19:20
[2020-05-06] MEDS: TRIAMCINOLONE 0.1% CREAM 15 GM TP SCH ×3 (10:28→21:52)
[2020-05-06] MEDS: DIVALPROEX DR 125 MG TAB PO SCH ×2 (10:28→21:53)
[2020-05-06] MEDS: allopurinoL 100 MG TAB PO SCH (10:29)
[2020-05-06] MEDS: FUROSEMIDE 40 MG TAB PO SCH (10:29)
[2020-05-06] MEDS: SPIRONOLACTONE 50 MG TAB PO SCH (10:29)
[2020-05-06] MEDS: PANTOPRAZOLE 40 MG TAB PO SCH (10:30)
[2020-05-06] MEDS: LISINOPRIL 5 MG TAB PO SCH (10:31)
[2020-05-06] MEDS: risperiDONE 1 MG TAB PO SCH ×2 (10:36→21:53)
[2020-05-06] MEDS: BUDESONIDE 0.5 MG/2 ML NEBU IH SCH ×2 (12:38→20:16)
[2020-05-06] MEDS: ARFORMOTEROL 15 MCG/2 ML NEBU IH SCH ×2 (12:38→20:16)
[2020-05-06] MEDS: BENZTROPINE 1 MG TAB PO SCH (21:52)
[2020-05-06] MEDS: traZODone 50 MG TAB PO SCH (21:53)
--- NOTE | 2020-05-07 07:04 | Progress Note ---
Subjective Date of service: 05/07/20 Principal diagnosis: Schizoaffective Disorder Subjective Comment: Per Psych Nurse: Pt interacts with staff on approach but is observed responding to internal stimuli, talking and smiling with unseen others. He is compliant with routine medication, Appetite good and no complaints of pain. Pt is easily redirected and denies any thoughts of SI. He is encouraged to attend to his adls. No behavior issues. Will continue to monitor q 15 min for safety. Psych Progress HPI Patient seen in room combing hair and grooming self, approached breakfast and sat in same chair as yesterday. Reports that he feels good but his hip is bothering him and he normally takes percocet for it. Patient informed to ask for tylenol from nurse but no opioids. When asked what he has been thinking of and would liek to do today, patient responds " I would like to sit and watch TV after having breakfast". Reason for continuing inpatient treatment: Reduced talkativity compared to yesterday, and no flights of ideas, will continue to observe for medication dose responses, and adjust as needed. Patient seem to have improved from yesterday. Review of Symptoms: Constitutional: Negative for weight loss ENT: Negative for stridor Respiratory: Negative for cough or hemoptysis All other systems reviewed and are negative MENTAL STATUS EXAMINATION General Appearance and Behavior: Age appropriate, good hygiene, wearing appropriate clothes, good eye contact, cooperative polite with questioning. Cooperation: Participating/engaged Psychomotor Behavior: unremarkable and within normal limits Mood: Good Affect and affective range: congruent with mood Thought Process: Fluent/Logical Thought Content: Within reality Speech: Normal volume, Regular rate and rhythm Intellectual Functioning: Average Suicidal Ideation: Denies SI Homicidal Ideation: Denies HI Impulse Control: Impaired Insight and Judgment: Limited insight and judgment, Impaired Memory: Short term memory impaired, custodial memory intact, Prospective memory unknown Attention: [place] Orientation: Alert, oriented Assessment and Plan Schizoaffective Disorder Treatment Plan Continue current medications Patient will be admitted for inpatient psychiatric evaluation, medication adjustment and close monitoring The patient's behavior, mood, sleep and appetite will be closely monitored. Patient will be enrolled in individual and group therapeutic sessions and encouraged to attend. Patient will be provided with a safe and structured environment. Patient's physical health needs will be addressed by the Hospitalist. Hospitalist Consulted Labs including CBC, CMP, Lipid profile and Hemoglobin A1C ordered Social Assessment will be completed and the Wire Inspector will work with patient and family to ensure a suitable and safe disposition Medication adjustment will be made as clinically indicated Usual Wellness Catholic/Preservation: The patient agreed on the treatment plan, understood the risk, benefit, alternative treatment, potential consequence of no treatment, and gave informed consent. Estimated period of time patient will need to remain in the hospital: [5] Outpatient treatment upon discharge Medications and Allergies Allergies Allergy/AdvReac Type Severity Reaction Status Date / Time No Known Allergies Allergy Verified 05/10/19 10:18 Home Medications Medication Instructions Recorded Confirmed Last Taken Type Pantoprazole [Protonix TAB] 40 mg PO QDAY #30 tablet 05/29/17 05/04/20 Unknown Rx Furosemide [Lasix TAB] 40 mg PO QDAY #30 tablet 03/01/18 05/04/20 Unknown Rx allopurinoL [Zyloprim] 100 mg PO QDAY #30 tablet 03/01/18 05/04/20 Unknown Rx Spironolactone [Aldactone] 50 mg PO QDAY #30 tablet 08/11/18 05/04/20 Unknown Rx Esomeprazole Magnesium 40 mg PO DAILY #30 capsule.dr 11/05/18 05/04/20 Unknown Rx Clindamycin [Clindamycin CAP] 600 mg PO BID #14 capsule 05/11/19 05/04/20 Unknown Rx Fluticasone/Salmeterol [Advair 1 puff IH BID 30 Days blst.w.dev 07/26/19 Unknown Rx Diskus 100-50 mcg] Triamcinolone 0.1% [Kenalog 0.1% 1 applic TP TID #2 tube 07/26/19 05/04/20 Unknown Rx CREAM] guaiFENesin ER [Mucinex ER] 600 mg PO Q12H #14 tablet.er 07/26/19 05/04/20 Unknown Rx AtorvaSTATin [Lipitor] 40 mg PO DAILY 05/04/20 05/04/20 Unknown History Lisinopril [Zestril TAB] 20 mg PO QDAY 05/04/20 05/04/20 Unknown History carvediloL [Coreg] 12.5 mg PO BID 05/04/20 05/04/20 Unknown History Active Meds: Active Medications Allopurinol (Zyloprim) 100 mg PO QDAY [facility] Last Admin: 05/06/20 10:29 Dose: 100 mg Documented by: Arformoterol Tartrate (Brovana Nebu) 15 mcg IH Q12HRT [facility] Last Admin: 05/06/20 20:16 Dose: 15 mcg Documented by: Benztropine Mesylate (Cogentin) 2 mg PO QHS [facility] Last Admin: 05/06/20 21:52 Dose: 2 mg Documented by: Budesonide (Pulmicort) 0.5 mg IH Q12HRT [facility] Last Admin: 05/06/20 20:16 Dose: 0.5 mg Documented by: Divalproex Sodium (Depakote Dr) 125 mg PO BID [facility] Last Admin: 05/06/20 21:53 Dose: 125 mg Documented by: Furosemide (Lasix) 40 mg PO QDAY [facility] Last Admin: 05/06/20 10:29 Dose: 40 mg Documented by: Haloperidol (Haldol) 5 mg PO Q6H PRN PRN Reason: Agitation Haloperidol Lactate (Haldol) 5 mg IM Q6H PRN PRN Reason: Agitation Lisinopril (Zestril) 2.5 mg PO QDAY [facility] Last Admin: 05/06/20 10:31 Dose: 2.5 mg Documented by: Lorazepam (Ativan) 2 mg IM Q6H PRN PRN Reason: Agitation Lorazepam (Ativan) 2 mg PO Q6H PRN PRN Reason: Agitation Pantoprazole Sodium (Protonix) 40 mg PO QDAY [facility] Last Admin: 05/06/20 10:30 Dose: 40 mg Documented by: Risperidone (Risperdal) 2 mg PO BID [facility] Last Admin: 05/06/20 21:53 Dose: 2 mg Documented by: Spironolactone (Aldactone) 50 mg PO QDAY [facility] Last Admin: 05/06/20 10:29 Dose: 50 mg Documented by: Trazodone HCl (Desyrel) 50 mg PO QHS [facility] Last Admin: 05/06/20 21:53 Dose: 50 mg Documented by: Triamcinolone Acetonide (Kenalog) 1 applic TP TID [facility] Last Admin: 05/06/20 21:52 Dose: 1 applic Documented by: Results - Results Labs/Vitals: Laboratory Last Values WBC 5.5 K/mm3 (4.5-11.0) 05/03/20 15:48 RBC 3.99 M/mm3 (3.65-5.03) 05/03/20 15:48 Hgb 13.2 gm/dl (11.8-15.2) 05/03/20 15:48 Hct 38.3 % (35.5-45.6) 05/03/20 15:48 MCV 96 fl (84-94) H 05/03/20 15:48 MCH 33 pg (28-32) H 05/03/20 15:48 MCHC 35 % (32-34) H 05/03/20 15:48 RDW 13.6 % (13.2-15.2) 05/03/20 15:48 Plt Count 174 K/mm3 (140-440) 05/03/20 15:48 Lymph % (Auto) 35.3 % (13.4-35.0) H 05/03/20 15:48 [place] % (Auto) 10.3 % (0.0-7.3) H 05/03/20 15:48 Eos % (Auto) 1.4 % (0.0-4.3) 05/03/20 15:48 Baso % (Auto) 0.5 % (0.0-1.8) 05/03/20 15:48 Lymph # 2.0 K/mm3 (1.2-5.4) 05/03/20 15:48 [place] # 0.6 K/mm3 (0.0-0.8) 05/03/20 15:48 Eos # 0.1 K/mm3 (0.0-0.4) 05/03/20 15:48 Baso # 0.0 K/mm3 (0.0-0.1) 05/03/20 15:48 Seg Neutrophils % 52.5 % (40.0-70.0) 05/03/20 15:48 Seg Neutrophils # 2.9 K/mm3 (1.8-7.7) 05/03/20 15:48 Sodium 139 mmol/L (137-145) 05/03/20 15:48 Potassium 4.5 mmol/L (3.6-5.0) 05/03/20 15:48 Chloride 100.9 mmol/L (98-107) 05/03/20 15:48 Carbon Dioxide 25 mmol/L (22-30) 05/03/20 15:48 Anion Gap 18 mmol/L 05/03/20 15:48 BUN 9 mg/dL (9-20) 05/03/20 15:48 Creatinine 0.8 mg/dL (0.8-1.5) 05/03/20 15:48 Estimated GFR > 60 ml/min 05/03/20 15:48 BUN/Creatinine Ratio 11 % 05/03/20 15:48 Glucose 109 mg/dL (75-100) H 05/03/20 15:48 Hemoglobin A1c 6.0 % (4-6) 05/03/20 15:48 Calcium 9.0 mg/dL (8.4-10.2) 05/03/20 15:48 Triglycerides 111 mg/dL (2-149) 05/03/20 15:48 Cholesterol 146 mg/dL (50-199) 05/03/20 15:48 LDL Cholesterol Direct 102 mg/dL (50-130) 05/03/20 15:48 HDL Cholesterol 41 mg/dL (40-59) 05/03/20 15:48 Cholesterol/HDL Ratio 3.56 % 05/03/20 15:48 TSH 1.460 mlU/mL (0.270-4.200) 05/03/20 15:48 Last Vital Signs Temp 97.6 F 05/06/20 22:00 Pulse 54 L 05/06/20 22:00 Resp 18 05/06/20 22:00 BP 111/60 05/06/20 22:00 Pulse Ox 97 05/06/20 22:00
[2020-05-07] MEDS: DIVALPROEX DR 125 MG TAB PO SCH ×2 (09:07→22:08)
[2020-05-07] MEDS: risperiDONE 1 MG TAB PO SCH ×2 (09:08→22:08)
[2020-05-07] MEDS: allopurinoL 100 MG TAB PO SCH (09:08)
[2020-05-07] MEDS: FUROSEMIDE 40 MG TAB PO SCH (09:08)
[2020-05-07] MEDS: PANTOPRAZOLE 40 MG TAB PO SCH (09:08)
[2020-05-07] MEDS: SPIRONOLACTONE 50 MG TAB PO SCH (09:08)
[2020-05-07] MEDS: LISINOPRIL 5 MG TAB PO SCH (09:09)
[2020-05-07] MEDS: TRIAMCINOLONE 0.1% CREAM 15 GM TP SCH ×3 (09:11→22:04)
[2020-05-07] MEDS: ARFORMOTEROL 15 MCG/2 ML NEBU IH SCH ×3 (09:16→20:30)
[2020-05-07] MEDS: BUDESONIDE 0.5 MG/2 ML NEBU IH SCH ×3 (09:16→20:30)
[2020-05-07] MEDS ORDERED: ACETAMINOPHEN 325 MG TAB PO PRN (10:38)
[2020-05-07] MEDS: traZODone 50 MG TAB PO SCH (22:06)
[2020-05-07] MEDS: BENZTROPINE 1 MG TAB PO SCH (22:09)
--- NOTE | 2020-05-08 07:20 | Progress Note ---
Subjective Date of service: 05/08/20 Principal diagnosis: Schizoaffective Disorder Subjective Comment: Per Psych Nurse: Patient is slow, not active, talks and laugh to himself and will engage in a conversation initiated by someone else. Pt. is clam and cooperatives. He is compliant with medications, medicate x1 with Tylenol 650mg po for c/o general body pain, pt verbalized feeling better, denies si/hi at present. Will continue to monitor. Psych Progress HPI Patient seated in ady chair in breakfast room, responding to internal stimulus, talking to self, rambling about his landlord and other roommates, talking about medications, who is granted access intro residence and other roommates behavior. Reason for continuing inpatient treatment: Patient responding to internal Stimuli, see medications changes below, will observe for medication efficacy and changes in behavior, no behavioral disturbances reported by nurses. Will continue to observe for medication dose responses, and adjust as needed. Patient seem to have improved from yesterday. Review of Symptoms: Constitutional: Negative for weight loss ENT: Negative for stridor Respiratory: Negative for cough or hemoptysis All other systems reviewed and are negative MENTAL STATUS EXAMINATION General Appearance and Behavior: Age appropriate, good hygiene, wearing appropriate clothes, good eye contact, cooperative polite with questioning. Cooperation: Participating/engaged Psychomotor Behavior: unremarkable and within normal limits Mood: Good Affect and affective range: congruent with mood Thought Process: Fluent/Logical Thought Content: Within reality Speech: Normal volume, Regular rate and rhythm Intellectual Functioning: Average Suicidal Ideation: Denies SI Homicidal Ideation: Denies HI Impulse Control: Impaired Insight and Judgment: Limited insight and judgment, Impaired Memory: Short term memory impaired, oil heaterman memory intact, Prospective memory unknown Attention: Normal Orientation: Alert, oriented Assessment and Plan Schizoaffective Disorder Treatment Plan Will add Olazanpine 5mg QHS and increase Valproate to 250 mg QAM, and 500 mg QHS, decrease risperidone to 1mg BID. Continue current medications Patient will be admitted for inpatient psychiatric evaluation, medication adjustment and close monitoring The patient's behavior, mood, sleep and appetite will be closely monitored. Patient will be enrolled in individual and group therapeutic sessions and encouraged to attend. Patient will be provided with a safe and structured environment. Patient's physical health needs will be addressed by the Hospitalist. Hospitalist Consulted Labs including CBC, CMP, Lipid profile and Hemoglobin A1C ordered Social Assessment will be completed and the Tank Driver will work with patient and family to ensure a suitable and safe disposition Medication adjustment will be made as clinically indicated Usual Wellness Restorationism/Preservation: The patient agreed on the treatment plan, understood the risk, benefit, alternative treatment, potential consequence of no treatment, and gave informed consent. Estimated period of time patient will need to remain in the hospital: [4] Outpatient treatment upon discharge Medications and Allergies Allergies Allergy/AdvReac Type Severity Reaction Status Date / Time No Known Allergies Allergy Verified 05/10/19 10:18 Home Medications Medication Instructions Recorded Confirmed Last Taken Type Pantoprazole [Protonix TAB] 40 mg PO QDAY #30 tablet 05/29/17 05/04/20 Unknown Rx Furosemide [Lasix TAB] 40 mg PO QDAY #30 tablet 03/01/18 05/04/20 Unknown Rx allopurinoL [Zyloprim] 100 mg PO QDAY #30 tablet 03/01/18 05/04/20 Unknown Rx Spironolactone [Aldactone] 50 mg PO QDAY #30 tablet 08/11/18 05/04/20 Unknown Rx Esomeprazole Magnesium 40 mg PO DAILY #30 capsule.dr 11/05/18 05/04/20 Unknown Rx Clindamycin [Clindamycin CAP] 600 mg PO BID #14 capsule 05/11/19 05/04/20 Unknown Rx Fluticasone/Salmeterol [Advair 1 puff IH BID 30 Days blst.w.dev 07/26/19 05/04/20 Unknown Rx Diskus 100-50 mcg] Triamcinolone 0.1% [Kenalog 0.1% 1 applic TP TID #2 tube 07/26/19 05/04/20 Unknown Rx CREAM] guaiFENesin ER [Mucinex ER] 600 mg PO Q12H #14 tablet.er 07/26/19 05/04/20 Unknown Rx AtorvaSTATin [Lipitor] 40 mg PO DAILY 05/04/20 05/04/20 Unknown History Lisinopril [Zestril TAB] 20 mg PO QDAY 05/04/20 05/04/20 Unknown History carvediloL [Coreg] 12.5 mg PO BID 05/04/20 05/04/20 Unknown History Active Meds: Active Medications Acetaminophen (Tylenol) 650 mg PO Q4H PRN PRN Reason: Pain, Mild (1-3) Last Admin: 05/07/20 10:58 Dose: 650 mg Documented by: Allopurinol (Zyloprim) 100 mg PO QDAY [facility] Last Admin: 05/07/20 09:08 Dose: 100 mg Documented by: Arformoterol Tartrate (Brovana Nebu) 15 mcg IH Q12HRT [facility] Last Admin: 05/07/20 20:30 Dose: 15 mcg Documented by: Benztropine Mesylate (Cogentin) 2 mg PO QHS [facility] Last Admin: 05/07/20 22:09 Dose: 2 mg Documented by: Budesonide (Pulmicort) 0.5 mg IH Q12HRT [facility] Last Admin: 05/07/20 20:30 Dose: 0.5 mg Documented by: Divalproex Sodium (Depakote Dr) 125 mg PO BID [facility] Last Admin: 05/07/20 22:08 Dose: 125 mg Documented by: Furosemide (Lasix) 40 mg PO QDAY [facility] Last Admin: 05/07/20 09:08 Dose: 40 mg Documented by: Haloperidol (Haldol) 5 mg PO Q6H PRN PRN Reason: Agitation Haloperidol Lactate (Haldol) 5 mg IM Q6H PRN PRN Reason: Agitation Lisinopril (Zestril) 2.5 mg PO QDAY [facility] Last Admin: 05/07/20 09:09 Dose: 2.5 mg Documented by: Lorazepam (Ativan) 2 mg IM Q6H PRN PRN Reason: Agitation Lorazepam (Ativan) 2 mg PO Q6H PRN PRN Reason: Agitation Pantoprazole Sodium (Protonix) 40 mg PO QDAY [facility] Last Admin: 05/07/20 09:08 Dose: 40 mg Documented by: Risperidone (Risperdal) 2 mg PO BID [facility] Last Admin: 05/07/20 22:08 Dose: 2 mg Documented by: Spironolactone (Aldactone) 50 mg PO QDAY [facility] Last Admin: 05/07/20 09:08 Dose: 50 mg Documented by: Trazodone HCl (Desyrel) 50 mg PO QHS [facility] Last Admin: 05/07/20 22:06 Dose: 50 mg Documented by: Triamcinolone Acetonide (Kenalog) 1 applic TP TID [facility] Last Admin: 05/07/20 22:04 Dose: 1 applic Documented by: Results - Results Labs/Vitals: Laboratory Last Values WBC 5.5 K/mm3 (4.5-11.0) 05/03/20 15:48 RBC 3.99 M/mm3 (3.65-5.03) 05/03/20 15:48 Hgb 13.2 gm/dl (11.8-15.2) 05/03/20 15:48 Hct 38.3 % (35.5-45.6) 05/03/20 15:48 MCV 96 fl (84-94) H 05/03/20 15:48 MCH 33 pg (28-32) H 05/03/20 15:48 MCHC 35 % (32-34) H 05/03/20 15:48 RDW 13.6 % (13.2-15.2) 05/03/20 15:48 Plt Count 174 K/mm3 (140-440) 05/03/20 15:48 Lymph % (Auto) 35.3 % (13.4-35.0) H 05/03/20 15:48 [place] % (Auto) 10.3 % (0.0-7.3) H 05/03/20 15:48 Eos % (Auto) 1.4 % (0.0-4.3) 05/03/20 15:48 Baso % (Auto) 0.5 % (0.0-1.8) 05/03/20 15:48 Lymph # 2.0 K/mm3 (1.2-5.4) 05/03/20 15:48 [place] # 0.6 K/mm3 (0.0-0.8) 05/03/20 15:48 Eos # 0.1 K/mm3 (0.0-0.4) 05/03/20 15:48 Baso # 0.0 K/mm3 (0.0-0.1) 05/03/20 15:48 Seg Neutrophils % 52.5 % (40.0-70.0) 05/03/20 15:48 Seg Neutrophils # 2.9 K/mm3 (1.8-7.7) 05/03/20 15:48 Sodium 139 mmol/L (137-145) 05/03/20 15:48 Potassium 4.5 mmol/L (3.6-5.0) 05/03/20 15:48 Chloride 100.9 mmol/L (98-107) 05/03/20 15:48 Carbon Dioxide 25 mmol/L (22-30) 05/03/20 15:48 Anion Gap 18 mmol/L 05/03/20 15:48 BUN 9 mg/dL (9-20) 05/03/20 15:48 Creatinine 0.8 mg/dL (0.8-1.5) 05/03/20 15:48 Estimated GFR > 60 ml/min 05/03/20 15:48 BUN/Creatinine Ratio 11 % 05/03/20 15:48 Glucose 109 mg/dL (75-100) H 05/03/20 15:48 Hemoglobin A1c 6.0 % (4-6) 05/03/20 15:48 Calcium 9.0 mg/dL (8.4-10.2) 05/03/20 15:48 Triglycerides 111 mg/dL (2-149) 05/03/20 15:48 Cholesterol 146 mg/dL (50-199) 05/03/20 15:48 LDL Cholesterol Direct 102 mg/dL (50-130) 05/03/20 15:48 HDL Cholesterol 41 mg/dL (40-59) 05/03/20 15:48 Cholesterol/HDL Ratio 3.56 % 05/03/20 15:48 TSH 1.460 mlU/mL (0.270-4.200) 05/03/20 15:48 Last Vital Signs Temp 98.0 F 05/07/20 07:14 Pulse 54 L 05/07/20 20:30 Resp 16 05/07/20 20:30 BP 121/68 05/07/20 09:08 Pulse Ox 96 05/07/20 07:14
[2020-05-08] MEDS ORDERED: DIVALPROEX DR 125 MG TAB PO SCH (08:26)
[2020-05-08] MEDS: TRIAMCINOLONE 0.1% CREAM 15 GM TP SCH ×3 (08:45→21:07)
[2020-05-08] MEDS: DIVALPROEX DR 125 MG TAB PO SCH (09:25)
[2020-05-08] MEDS: SPIRONOLACTONE 50 MG TAB PO SCH (09:26)
[2020-05-08] MEDS: allopurinoL 100 MG TAB PO SCH (09:26)
[2020-05-08] MEDS: FUROSEMIDE 40 MG TAB PO SCH (09:27)
[2020-05-08] MEDS: LISINOPRIL 5 MG TAB PO SCH (09:27)
[2020-05-08] MEDS: PANTOPRAZOLE 40 MG TAB PO SCH (09:27)
[2020-05-08] MEDS: risperiDONE 1 MG TAB PO SCH ×2 (09:27→21:06)
[2020-05-08] MEDS: ARFORMOTEROL 15 MCG/2 ML NEBU IH SCH ×2 (09:27→20:05)
[2020-05-08] MEDS: BUDESONIDE 0.5 MG/2 ML NEBU IH SCH ×2 (09:27→20:06)
[2020-05-08] MEDS: BENZTROPINE 1 MG TAB PO SCH (21:06)
[2020-05-08] MEDS: traZODone 50 MG TAB PO SCH (21:06)
[2020-05-08] MEDS ORDERED: VALPROIC ACID 250 MG CAP PO SCH (22:00)
--- NOTE | 2020-05-09 07:25 | Progress Note ---
Subjective Date of service: 05/09/20 Principal diagnosis: Schizoaffective Disorder Subjective Comment: Per Psych Nurse: Patient spent the evening isolated and watching tv. He presents as content. He continues to laugh and talk to self but is has decreased in intensiity. He is medication compliant and his appetite is good. Patient rested quietly last pm sleeping 8 hours. Will continue to monitor patient for safety. Psych Progress HPI Patient in bed awake, reports just waking up and expressed desire to brush teeth and have breakfast. Says he feels pretty good, no night disturbances during sleep and has been medication compliant. Denies having any medication concern. Reason for continuing inpatient treatment: Reduced internal stimuli has observed by nurse from medication changes yesterday, to be discharged this AM Review of Symptoms: Constitutional: Negative for weight loss ENT: Negative for stridor Respiratory: Negative for cough or hemoptysis All other systems reviewed and are negative MENTAL STATUS EXAMINATION General Appearance and Behavior: Age appropriate, good hygiene, wearing appropriate clothes, good eye contact, cooperative polite with questioning. Cooperation: Participating/engaged Psychomotor Behavior: unremarkable and within normal limits Mood: Good Affect and affective range: congruent with mood Thought Process: Fluent/Logical Thought Content: Within reality Speech: Normal volume, Regular rate and rhythm Intellectual Functioning: Average Suicidal Ideation: Denies SI Homicidal Ideation: Denies HI Impulse Control: Impaired Insight and Judgment: Limited insight and judgment, Impaired Memory: Short term memory impaired, buttermilk drier operator memory intact, Prospective memory unknown Attention: Normal Orientation: Alert, oriented Assessment and Plan Schizoaffective Disorder Treatment Plan Continue current medicatioons Continue current medications Patient will be admitted for inpatient psychiatric evaluation, medication adjustment and close monitoring The patient's behavior, mood, sleep and appetite will be closely monitored. Patient will be enrolled in individual and group therapeutic sessions and encouraged to attend. Patient will be provided with a safe and structured environment. Patient's physical health needs will be addressed by the Hospitalist. Hospitalist Consulted Labs including CBC, CMP, Lipid profile and Hemoglobin A1C ordered Social Assessment will be completed and the Passenger Service Representative will work with patient and family to ensure a suitable and safe disposition Medication adjustment will be made as clinically indicated Usual Wellness [facility]/Preservation: The patient agreed on the treatment plan, understood the risk, benefit, alternative treatment, potential consequence of no treatment, and gave informed consent. Estimated period of time patient will need to remain in the hospital: [0] Outpatient treatment upon discharge Medications and Allergies Allergies Allergy/AdvReac Type Severity Reaction Status Date / Time No Known Allergies Allergy Verified 05/10/19 10:18 Home Medications Medication Instructions Recorded Confirmed Last Taken Type Pantoprazole [Protonix TAB] 40 mg PO QDAY #30 tablet 05/29/17 05/04/20 Unknown Rx Furosemide [Lasix TAB] 40 mg PO QDAY #30 tablet 03/01/18 05/04/20 Unknown Rx Spironolactone [Aldactone] 50 mg PO QDAY #30 tablet 08/11/18 05/04/20 Unknown Rx Esomeprazole Magnesium 40 mg PO DAILY #30 capsule. 11/05/18 05/04/20 Unknown Rx Fluticasone/Salmeterol [Advair 1 puff IH BID 30 Days blst.w.dev 07/26/19 05/04/20 Unknown Rx Diskus 100-50 mcg] Triamcinolone 0.1% [Kenalog 0.1% 1 applic TP TID #2 tube 07/26/19 05/04/20 Unknown Rx CREAM] AtorvaSTATin [Lipitor] 40 mg PO DAILY 05/04/20 05/04/20 Unknown History Lisinopril [Zestril TAB] 20 mg PO QDAY 05/04/20 05/04/20 Unknown History carvediloL [Coreg] 12.5 mg PO BID 05/04/20 05/04/20 Unknown History Arformoterol Nebu [Brovana Nebu] 15 mcg IH Q12HRT ml 05/09/20 Unknown Rx Benztropine [Cogentin] 2 mg PO QHS #30 tablet 05/09/20 Unknown Rx Budesonide [Pulmicort Respules] 0.5 mg IH Q12HRT nebu 05/09/20 Unknown Rx Divalproex [Nereida Davidson] 250 mg PO QAM tablet 05/09/20 Unknown Rx OLANzapine [ZyPREXA] 5 mg PO QHS #30 tablet 05/09/20 Unknown Rx Valproic Acid [Depakene] 500 mg PO QHS #30 capsule 05/09/20 Unknown Rx allopurinoL [Zyloprim] 100 mg PO QDAY tablet 05/09/20 Unknown Rx lisinopriL [Zestril TAB] 2.5 mg PO QDAY tablet 05/09/20 Unknown Rx risperiDONE [RisperDAL] 1 mg PO BID #30 tablet 05/09/20 Unknown Rx traZODone [Desyrel] 50 mg PO QHS #30 tablet 05/09/20 Unknown Rx Active Meds: Active Medications Acetaminophen (Tylenol) 650 mg PO Q4H PRN PRN Reason: Pain, Mild (1-3) Last Admin: 05/07/20 10:58 Dose: 650 mg Documented by: Allopurinol (Zyloprim) 100 mg PO QDAY [facility] Last Admin: 05/08/20 09:26 Dose: 100 mg Documented by: Arformoterol Tartrate (Brovana Nebu) 15 mcg IH Q12HRT [facility] Last Admin: 05/08/20 20:05 Dose: 15 mcg Documented by: Benztropine Mesylate (Cogentin) 2 mg PO QHS [facility] Last Admin: 05/08/20 21:06 Dose: 2 mg Documented by: Budesonide (Pulmicort) 0.5 mg IH Q12HRT [facility] Last Admin: 05/08/20 20:06 Dose: 0.5 mg Documented by: Divalproex Sodium (Depakote Dr) [facility] Admin: 05/08/20 09:25 Dose: 250 mg Documented by: Furosemide (Lasix) 40 mg PO QDAY [facility] Last Admin: 05/08/20 09:27 Dose: 40 mg Documented by: Haloperidol (Haldol) 5 mg PO Q6H PRN PRN Reason: Agitation Haloperidol Lactate (Haldol) 5 mg IM Q6H PRN PRN Reason: Agitation Lisinopril (Zestril) 2.5 mg PO QDAY [facility] Last Admin: 05/08/20 09:27 Dose: 2.5 mg Documented by: Lorazepam (Ativan) 2 mg IM Q6H PRN PRN Reason: Agitation Lorazepam (Ativan) 2 mg PO Q6H PRN PRN Reason: Agitation Olanzapine (Zyprexa) 5 mg PO QHS [facility] Last Admin: 05/08/20 21:07 Dose: 5 mg Documented by: Pantoprazole Sodium (Protonix) 40 mg PO QDAY [facility] Last Admin: 05/08/20 09:27 Dose: 40 mg Documented by: Risperidone (Risperdal) 1 mg PO BID [facility] Last Admin: 05/08/20 21:06 Dose: 1 mg Documented by: Spironolactone (Aldactone) 50 mg PO QDAY [facility] Last Admin: 05/08/20 09:26 Dose: 50 mg Documented by: Trazodone HCl (Desyrel) 50 mg PO QHS [facility] Last Admin: 05/08/20 21:06 Dose: 50 mg Documented by: Triamcinolone Acetonide (Kenalog) 1 applic TP TID [facility] Last Admin: 05/08/20 21:07 Dose: 1 applic Documented by: Valproic Acid (Depakene) 500 mg PO QHS [facility] Last Admin: 05/08/20 21:06 Dose: 500 mg Documented by: Results - Results Labs/Vitals: Laboratory Last Values WBC 5.5 K/mm3 (4.5-11.0) 05/03/20 15:48 RBC 3.99 M/mm3 (3.65-5.03) 05/03/20 15:48 Hgb 13.2 gm/dl (11.8-15.2) 05/03/20 15:48 Hct 38.3 % (35.5-45.6) 05/03/20 15:48 MCV 96 fl (84-94) H 05/03/20 15:48 MCH 33 pg (28-32) H 05/03/20 15:48 MCHC 35 % (32-34) H 05/03/20 15:48 RDW 13.6 % (13.2-15.2) 05/03/20 15:48 Plt Count 174 K/mm3 (140-440) 05/03/20 15:48 Lymph % (Auto) 35.3 % (13.4-35.0) H 05/03/20 15:48 [place] % (Auto) 10.3 % (0.0-7.3) H 05/03/20 15:48 Eos % (Auto) 1.4 % (0.0-4.3) 05/03/20 15:48 Baso % (Auto) 0.5 % (0.0-1.8) 05/03/20 15:48 Lymph # 2.0 K/mm3 (1.2-5.4) 05/03/20 15:48 Luna # 0.6 K/mm3 (0.0-0.8) 05/03/20 15:48 Eos # 0.1 K/mm3 (0.0-0.4) 05/03/20 15:48 Baso # 0.0 K/mm3 (0.0-0.1) 05/03/20 15:48 Seg Neutrophils % 52.5 % (40.0-70.0) 05/03/20 15:48 Seg Neutrophils # 2.9 K/mm3 (1.8-7.7) 05/03/20 15:48 Sodium 139 mmol/L (137-145) 05/03/20 15:48 Potassium 4.5 mmol/L (3.6-5.0) 05/03/20 15:48 Chloride 100.9 mmol/L (98-107) 05/03/20 15:48 Carbon Dioxide 25 mmol/L (22-30) 05/03/20 15:48 Anion Gap 18 mmol/L 05/03/20 15:48 BUN 9 mg/dL (9-20) 05/03/20 15:48 Creatinine 0.8 mg/dL (0.8-1.5) 05/03/20 15:48 Estimated GFR > 60 ml/min 05/03/20 15:48 BUN/Creatinine Ratio 11 % 05/03/20 15:48 Glucose 109 mg/dL (75-100) H 05/03/20 15:48 Hemoglobin A1c 6.0 % (4-6) 05/03/20 15:48 Calcium 9.0 mg/dL (8.4-10.2) 05/03/20 15:48 Triglycerides 111 mg/dL (2-149) 05/03/20 15:48 Cholesterol 146 mg/dL (50-199) 05/03/20 15:48 LDL Cholesterol Direct 102 mg/dL (50-130) 05/03/20 15:48 HDL Cholesterol 41 mg/dL (40-59) 05/03/20 15:48 Cholesterol/HDL Ratio 3.56 % 05/03/20 15:48 TSH 1.460 mlU/mL (0.270-4.200) 05/03/20 15:48 Last Vital Signs Temp 97.5 F L 05/08/20 19:07 Pulse 59 L 05/08/20 20:06 Resp 16 05/08/20 20:06 BP 113/74 05/08/20 19:07 Pulse Ox 97 05/08/20 19:07
[2020-05-09] MEDS: LISINOPRIL 5 MG TAB PO SCH (09:27)
[2020-05-09] MEDS: SPIRONOLACTONE 50 MG TAB PO SCH (10:36)
[2020-05-09] MEDS: FUROSEMIDE 40 MG TAB PO SCH (10:37)
[2020-05-09] MEDS: risperiDONE 1 MG TAB PO SCH (10:37)
[2020-05-09] MEDS: TRIAMCINOLONE 0.1% CREAM 15 GM TP SCH ×2 (10:38→14:53)
[2020-05-09] MEDS: allopurinoL 100 MG TAB PO SCH (10:38)
[2020-05-09] MEDS: PANTOPRAZOLE 40 MG TAB PO SCH (10:38)
[2020-05-09 10:42] VITALS: BP 121/80
[2020-05-09] MEDS: BUDESONIDE 0.5 MG/2 ML NEBU IH SCH (10:45)
[2020-05-09] MEDS: ARFORMOTEROL 15 MCG/2 ML NEBU IH SCH (10:45)
[2020-05-09] MEDS: DIVALPROEX DR 125 MG TAB PO SCH (13:00)
[2020-05-09] MEDS ORDERED: NICOTINE 14 MG/24 HR PATCH TD SCH (15:00)
--- NOTE | 2020-05-09 17:25 | Discharge Summary ---
Providers - Providers Date of Admission: 05/02/20 18:17 Date of discharge: 05/09/20 Attending physician: WILMER TEJADA MD 05/02/20 18:17 Consult to Physician [CONS] Routine Comment: Consulting Provider: JD TOMAS Physician Instructions: Reason For Exam: Medical Management Primary care physician: [facility], Hospitalization Reason for admission: Danger to others Condition: Good Hospital course: The patient was provided inpatient psychiatric treatment with safe and s upportive care, medication adjustment, adverse effect monitoring, medical evaluations, medical treatments, assessment and psycho-education. The patient's mood, cognition, behavior, moral support are improved and stabilized. St the time of discharge, the patient had no endangering behavior and no debilitating adverse effects. The patient agreed on potential consequences of no treatment and gave informed consent. Disposition: DC- TO HOME OR SELFCARE Allergies/Adverse Reactions: Allergies No Known Allergies Allergy (Verified 05/10/19 10:18) Vital Signs: Last Vital Signs Temp 97.5 F L 05/08/20 19:07 Pulse 65 05/09/20 10:36 Resp 16 05/08/20 20:06 BP 121/80 05/09/20 10:36 Pulse Ox 97 05/08/20 19:07 Last Lab: Laboratory Last Values WBC 5.5 K/mm3 (4.5-11.0) 05/03/20 15:48 RBC 3.99 M/mm3 (3.65-5.03) 05/03/20 15:48 Hgb 13.2 gm/dl (11.8-15.2) 05/03/20 15:48 Hct 38.3 % (35.5-45.6) 05/03/20 15:48 MCV 96 fl (84-94) H 05/03/20 15:48 MCH 33 pg (28-32) H 05/03/20 15:48 MCHC 35 % (32-34) H 05/03/20 15:48 RDW 13.6 % (13.2-15.2) 05/03/20 15:48 Plt Count 174 K/mm3 (140-440) 05/03/20 15:48 Lymph % (Auto) 35.3 % (13.4-35.0) H 05/03/20 15:48 [place] % (Auto) 10.3 % (0.0-7.3) H 05/03/20 15:48 Eos % (Auto) 1.4 % (0.0-4.3) 05/03/20 15:48 Baso % (Auto) 0.5 % (0.0-1.8) 05/03/20 15:48 Lymph # 2.0 K/mm3 (1.2-5.4) 05/03/20 15:48 [place] # 0.6 K/mm3 (0.0-0.8) 05/03/20 15:48 Eos # 0.1 K/mm3 (0.0-0.4) 05/03/20 15:48 Baso # 0.0 K/mm3 (0.0-0.1) 05/03/20 15:48 Seg Neutrophils % 52.5 % (40.0-70.0) 05/03/20 15:48 Seg Neutrophils # 2.9 K/mm3 (1.8-7.7) 05/03/20 15:48 Sodium 139 mmol/L (137-145) 05/03/20 15:48 Potassium 4.5 mmol/L (3.6-5.0) 05/03/20 15:48 Chloride 100.9 mmol/L (98-107) 05/03/20 15:48 Carbon Dioxide 25 mmol/L (22-30) 05/03/20 15:48 Anion Gap 18 mmol/L 05/03/20 15:48 BUN 9 mg/dL (9-20) 05/03/20 15:48 Creatinine 0.8 mg/dL (0.8-1.5) 05/03/20 15:48 Estimated GFR > 60 ml/min 05/03/20 15:48 BUN/Creatinine Ratio 11 % 05/03/20 15:48 Glucose 109 mg/dL (75-100) H 05/03/20 15:48 Hemoglobin A1c 6.0 % (4-6) 05/03/20 15:48 Calcium 9.0 mg/dL (8.4-10.2) 05/03/20 15:48 Triglycerides 111 mg/dL (2-149) 05/03/20 15:48 Cholesterol 146 mg/dL (50-199) 05/03/20 15:48 LDL Cholesterol Direct 102 mg/dL (50-130) 05/03/20 15:48 HDL Cholesterol 41 mg/dL (40-59) 05/03/20 15:48 Cholesterol/HDL Ratio 3.56 % 05/03/20 15:48 TSH 1.460 mlU/mL (0.270-4.200) 05/03/20 15:48 Core Measure Documentation - Palliative Care Palliative Care/ Comfort Measures: Not Applicable - Core Measures Any of the following diagnoses?: none Exam - Constitutional Vitals: Temp Pulse Resp BP Pulse Ox 97.5 F L 65 16 121/80 97 05/08/20 19:07 05/09/20 10:36 05/08/20 20:06 05/09/20 10:36 05/08/20 19:07 - EENT Eyes: Present: PERRL, EOM intact ENT: hearing intact, clear oral mucosa - Neck Neck: Present: supple, normal ROM - Respiratory Respiratory effort: normal - Abdominal Male genitourinary: Present: normal - Integumentary Integumentary: Present: clear, warm, dry Plan Care Plan Goals: Take meds as rx Plan of Treatment: F/U with PCP and Psychiatrist recommended Health Concerns: None indicated at time of discharge [facility] Care Provider[facility] - 7 Days Prescriptions: Benztropine [Cogentin] 2 mg PO QHS #30 tablet Valproic Acid [Depakene] 500 mg PO QHS #30 capsule traZODone [Desyrel] 50 mg PO QHS #30 tablet OLANzapine [ZyPREXA] 5 mg PO QHS #30 tablet risperiDONE [RisperDAL] 1 mg PO BID #30 tablet
== END 2020-05-09 17:20 | disposition home or self-care (01) | DRG 885 ==
LOC: UNDOADMIN 17:48 → 3A 17:48 → 5A 18:17
PROVIDERS: ADMIT Psychiatry & Neurology Psychiatry; ATTEND Psychiatry & Neurology Psychiatry
DX: F25.9 Schizoaffective disorder, unspecified (principal); I10 Essential (primary) hypertension; K21.9 Gastro-esophageal reflux disease without esophagitis
CPT/HCPCS: 36415; 80048; 80061; 83036; 84443; 85025; 94640; G0378

== ENCOUNTER 2020-07-04 15:23 | Emergency (ER) | payer MEDICAID, MEDICARE ==
[2020-07-04 15:41] VITALS: BP 140/90
== END 2020-07-04 17:14 | disposition left against medical advice (07) ==
LOC: ED 15:23
DX: R09.81 Nasal congestion (principal); Z53.21 Procedure and treatment not carried out due to patient leaving prior to being seen by health care provider

== ENCOUNTER 2020-08-25 00:07 | Emergency (ER) | payer MEDICARE ==
[2020-08-25] MEDS ORDERED: ALBUTEROL 2.5 MG/3 ML NEBU IH ONE (09:55)
[2020-08-25] MEDS ORDERED: IPRATROPIUM 0.02% NEBU 2.5 ML IH ONE (09:55)
[2020-08-25] MEDS ORDERED: traMADol 50 MG TAB PO ONE (09:55)
[2020-08-25] MEDS ORDERED: dexAMETHasone 20 MG/5 ML VIAL IV ONE (09:55)
--- NOTE | 2020-08-25 10:28 | XRay Report ---
CHEST 2 VIEWS INDICATION: SOB. COMPARISON: 06/11/2020 FINDINGS: Support devices: None. Heart: Within normal limits. Lungs/Pleura: No acute air space or interstitial disease. No significant pleural effusion. IMPRESSION: No acute findings. Signer Name: Adrian Asher MD Signed: 08/25/2020 10:24 AM Workstation Name: [id number]
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
--- NOTE | 2020-08-25 10:52 | Vascular Lab Report ---
DUPLEX DOPPLER LOWER EXTREMITY VEINS, BILATERAL INDICATION / CLINICAL INFORMATION: Bilateral lower extremity edema. TECHNIQUE: Duplex doppler imaging was performed through the veins of both lower extremities using venous agustina mamadou and other maneuvers. COMPARISON: None available. FINDINGS: RIGHT COMMON FEMORAL VEIN: Negative. RIGHT FEMORAL VEIN: Negative. RIGHT POPLITEAL VEIN: Negative. RIGHT CALF VEINS: Negative. LEFT COMMON FEMORAL VEIN: Negative. LEFT FEMORAL VEIN: Negative. LEFT POPLITEAL VEIN: Negative. LEFT CALF VEINS: Negative. ADDITIONAL FINDINGS: None. IMPRESSION: 1. No sonographic evidence for DVT in either lower extremity. Signer Name: En Payne MD Signed: 08/25/2020 10:48 AM Workstation Name: [id number]
[2020-08-25 11:10] LABS: Basophils % (Auto) 0.7 % (0.0-1.8); Eosinophils # (Auto) 0.1 K/mm3 (0.0-0.4); Eosinophils % (Auto) 0.9 % (0.0-4.3); Hematocrit 38.1 % (35.5-45.6); Hemoglobin 12.8 gm/dl (11.8-15.2); Lymphocytes % (Auto) 32.2 % (13.4-35.0); Mean Corpuscular HGB Conc 34 % (32-34); Mean Corpuscular Volume 95 fl (84-94); Monocytes # (Auto) 0.7 K/mm3 (0.0-0.8); Monocytes % (Auto) 10.8 % (0.0-7.3); Platelet Count 178 K/mm3 (140-440); Red Blood Count 4.02 M/mm3 (3.65-5.03); Red Cell Distribution Width 14.2 % (13.2-15.2)
[2020-08-25 11:33] LABS: Alanine Aminotransferase 16 units/L (7-56); Albumin 4.1 g/dL (3.9-5); Blood Urea Nitrogen 10 mg/dL (9-20); Calcium 9.1 mg/dL (8.4-10.2); Hemolysis Index 9
[2020-08-25 11:36] LABS: BUN/Creatinine Ratio 17
[2020-08-25 11:41] LABS: Bilirubin,Urine NEG (Negative); Blood,Urine MOD (Negative); Color,Urine Straw (Yellow); Mucus,Urine FEW /HPF; Protein,Urine <15 mg/dL mg/dL (Negative); Sperm,Urine FEW /HPF (NP); Urobilinogen,Urine < 2.0 mg/dL (<2.0); WBC,Urine < 1.0 /HPF (0.0-6.0)
[2020-08-25 12:44] VITALS: BP 136/90
== END 2020-08-25 13:00 | disposition home or self-care (01) ==
LOC: ED 00:07
DX: M79.10 Myalgia, unspecified site (principal); M54.5 Low back pain; J44.1 Chronic obstructive pulmonary disease with (acute) exacerbation; R60.0 Localized edema; I11.0 Hypertensive heart disease with heart failure; I50.9 Heart failure, unspecified; K21.9 Gastro-esophageal reflux disease without esophagitis; N20.0 Calculus of kidney; F20.9 Schizophrenia, unspecified; F17.200 Nicotine dependence, unspecified, uncomplicated; Z98.890 Other specified postprocedural states; Z79.899 Other long term (current) drug therapy
CPT/HCPCS: 36415; 71046; 80053; 81001; 82550; 83735; 83880; 84484; 85025; 93005; 93970; 94640; 96374; 99284; J1100; 94644

== ENCOUNTER 2020-09-27 16:31 | Emergency (ER) | payer MEDICARE ==
[2020-09-27 18:38] VITALS: BP 152/100
[2020-09-27 19:42] LABS: Bilirubin,Urine NEG (Negative); Blood,Urine MOD (Negative); Color,Urine Yellow (Yellow); Mucus,Urine FEW /HPF; Protein,Urine <15 mg/dL mg/dL (Negative)
[2020-09-27 19:57] LABS: Basophils % (Auto) 0.3 % (0.0-1.8); Eosinophils % (Auto) 0.7 % (0.0-4.3); Hematocrit 39.3 % (35.5-45.6); Hemoglobin 13.1 gm/dl (11.8-15.2); Lymphocytes # (Auto) 2.2 K/mm3 (1.2-5.4); Lymphocytes % (Auto) 31.1 % (13.4-35.0); Mean Corpuscular HGB Conc 33 % (32-34); Mean Corpuscular Volume 94 fl (84-94); Monocytes # (Auto) 0.7 K/mm3 (0.0-0.8); Monocytes % (Auto) 9.4 % (0.0-7.3); Platelet Count 192 K/mm3 (140-440); Red Blood Count 4.17 M/mm3 (3.65-5.03); Red Cell Distribution Width 14.1 % (13.2-15.2)
[2020-09-27 20:12] LABS: Alanine Aminotransferase 19 units/L (7-56); Albumin 4.3 g/dL (3.9-5); Blood Urea Nitrogen 7 mg/dL (9-20); Calcium 9.5 mg/dL (8.4-10.2); Hemolysis Index 5
[2020-09-27 20:14] LABS: BUN/Creatinine Ratio 10
[2020-09-28] MEDS ORDERED: ACETAMINOPHEN 500 MG TAB ONE (01:44)
[2020-09-28] MEDS ORDERED: ACETAMINOPHEN 500 MG TAB PO ONE (01:45)
== END 2020-09-28 01:50 | disposition home or self-care (01) ==
LOC: ED 16:31
DX: M54.9 Dorsalgia, unspecified (principal); R10.9 Unspecified abdominal pain
CPT/HCPCS: 36415; 80053; 81001; 85025; 99283

== ENCOUNTER 2020-11-25 17:06 | Emergency (ER) | payer MEDICARE ==
[2020-11-25 17:38] VITALS: BP 125/82
[2020-11-25] MEDS ORDERED: predniSONE 20 MG TAB PO ONE (21:03)
[2020-11-25] MEDS ORDERED: IBUPROFEN 600 MG TAB PO ONE (21:03)
[2020-11-25] MEDS ORDERED: ACETAMINOPHEN 500 MG TAB PO ONE (21:03)
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
== END 2020-11-25 21:51 | disposition home or self-care (01) ==
LOC: ED 17:06
DX: M62.830 Muscle spasm of back (principal); I11.0 Hypertensive heart disease with heart failure; I50.9 Heart failure, unspecified; K21.9 Gastro-esophageal reflux disease without esophagitis; F20.9 Schizophrenia, unspecified; J44.9 Chronic obstructive pulmonary disease, unspecified; F17.200 Nicotine dependence, unspecified, uncomplicated; Z98.890 Other specified postprocedural states; Z79.899 Other long term (current) drug therapy
CPT/HCPCS: 99282; J7512

== ENCOUNTER 2021-01-13 23:12 | Emergency (ER) | payer MEDICARE ==
--- NOTE | 2021-01-13 23:48 | Event Note ---
ED Screening Note Date of service: 01/13/21 Time: 23:47 ED Screening Note: Pt c/o SOB and swelling after being out of his CHF meds x 3 weeks pt is a poor historian This initial assessment/diagnostic orders/clinical plan/treatment(s) is/are subject to change based on patients health status, clinical progression and re- assessment by fellow clinical providers in the ED. Further treatment and workup at subsequent clinical providers discretion. Patient/guardian urged not to elope from the ED as their condition may be serious if not clinically assessed and managed. Initial orders include: labs ekg CXR
[2021-01-14 00:50] LABS: Alanine Aminotransferase 15 units/L (7-56); Albumin 4.2 g/dL (3.9-5); BUN/Creatinine Ratio 11; Basophils % (Auto) 0.6 % (0.0-1.8); Blood Urea Nitrogen 9 mg/dL (9-20); Calcium 9.3 mg/dL (8.4-10.2); Eosinophils # (Auto) 0.1 K/mm3 (0.0-0.4); Eosinophils % (Auto) 1.3 % (0.0-4.3); Hematocrit 36.1 % (35.5-45.6); Hemoglobin 12.3 gm/dl (11.8-15.2); Hemolysis Index 8; Lymphocytes # (Auto) 1.9 K/mm3 (1.2-5.4); Lymphocytes % (Auto) 25.2 % (13.4-35.0); Mean Corpuscular HGB Conc 34 % (32-34); Mean Corpuscular Volume 94 fl (84-94); Monocytes # (Auto) 0.9 K/mm3 (0.0-0.8); Monocytes % (Auto) 11.7 % (0.0-7.3); Platelet Count 199 K/mm3 (140-440); Red Blood Count 3.82 M/mm3 (3.65-5.03); Red Cell Distribution Width 14.6 % (13.2-15.2)
--- NOTE | 2021-01-14 00:52 | XRay Report ---
CHEST 2 VIEWS INDICATION: shortness of breath. COMPARISON: 08/25/2020 FINDINGS: Support devices: None. Heart: Within normal limits. Lungs/Pleura: No acute air space or interstitial disease. Underlying COPD remains. No significant ple ural effusion. IMPRESSION: No acute findings. Signer Name: Adrian Asher MD Signed: 01/14/2021 12:47 AM Workstation Name: [id number]
[2021-01-14 04:08] VITALS: BP 143/84
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
== END 2021-01-14 05:35 | disposition home or self-care (01) ==
LOC: ED 23:12
DX: I11.0 Hypertensive heart disease with heart failure (principal); I50.9 Heart failure, unspecified; Z76.0 Encounter for issue of repeat prescription; K21.9 Gastro-esophageal reflux disease without esophagitis; J44.9 Chronic obstructive pulmonary disease, unspecified; Z79.899 Other long term (current) drug therapy; Z98.890 Other specified postprocedural states
CPT/HCPCS: 36415; 71046; 80053; 83880; 84484; 85025; 93005

== ENCOUNTER 2021-04-27 16:39 | Inpatient (IN) | payer MEDICARE ==
[2021-04-27] MEDS ORDERED: MELATONIN 5 MG TAB PO PRN (21:08)
[2021-04-27] MEDS ORDERED: risperiDONE 1 MG TAB PO ONE (22:00)
[2021-04-27] MEDS: traZODone 50 MG TAB PO SCH (22:21)
[2021-04-27] MEDS: BENZTROPINE 1 MG TAB PO SCH (22:21)
[2021-04-27] MEDS: METOPROLOL TARTRATE 100 MG TAB PO SCH (22:29)
[2021-04-28] MEDS: METOPROLOL TARTRATE 100 MG TAB PO SCH ×2 (09:20→21:38)
--- NOTE | 2021-04-28 10:43 | History and Physical Report ---
GP History & Physical - History of Present Illness Date of admission: 04/27/21 Date of Examination: 04/28/21 Reason for Admission: Danger to self History of Present Illness: Rajiv Peña is a 60y/o male who was admitted for A/V hallucinations. The patient is known to me from previous visits. The patient says he hears voices and sees birds and bats. He also verbalizes suicidal thoughts with no plan. The nursing staff states the patient has bee responding to internal stimuli. PAST PSYCHIATRIC HISTORY: Diagnoses: Schizophrenia Suicide attempts or Self-harm behavior: 1x Prior psychiatric hospitalizations: 1x Substance Abuse history: Denies Previous psychiatric medications tried: Invega and abilify Outpatient treatment: PAST MEDICAL HISTORY: Of diabetes, hypertension, COPD CHF Family Psychiatric History: None reported or documented SOCIAL HISTORY Marital Status: Single Living Arrangements: skilled nursing Employment Status: Disabled Access to guns/weapons: none reported Education: History of Abuse: none reported Legal History: REVIEW OF SYSTEMS Constitutional: Negative for weight loss ENT: Negative for stridor Respiratory: Negative for cough or hemoptysis All other systems reviewed and are negative MENTAL STATUS EXAMINATION General Appearance: Dressed appropriately, Behavior: Intrusive Mood: Irritable Affect and affective range: congruent with mood Thought Process: Tangential Speech: Low tone Thought content: Suicidal Ideation: SI Homicidal Ideation: Yes Hallucinations: Visual Delusions: Yes Insight and Judgment: Limited insight and judgment Memory: impaired Attention: Normal Orientation: Alert, oriented, anxious and confused Assessment Schizoaffective Disorder Treatment Plan Patient admitted for inpatient psychiatric evaluation, medication adjustment and close monitoring The patient's behavior, mood, sleep and appetite will be closely monitored. Patient enrolled in individual and group therapeutic sessions and encouraged to attend. Patient provided with a safe and structured environment. Patient's physical health needs will be addressed by the Hospitalist. Hospitalist Consulted Labs including CBC, CMP, Lipid profile and Hemoglobin A1C levels ordered for baseline reference Social Assessment will be completed and the Clinical Dietetic Technician will work with patient and family to ensure a suitable and safe disposition Medication adjustment will be made as clinically indicated Continue home meds Usual Wellness Yazdanism/Preservation: - Start Trazodone 50 mg po QHS & 50 mg po QHS PRN between 10 PM & 2 AM for insomnia - Start Melatonin 5 mg po QHS to promote circadian rhythm - Start [place]-3 for brain health, reduce impulsivity, and as adjunctive treatment for mood disorder, continue upon discharge given overall benefits. - Start B1 prophylaxis with 200 mg po for 5 days The patient agreed on the treatment plan, understood the risk, benefit, alternative treatment, potential consequence of no treatment, and gave informed consent. Estimated days: 7 Post hospital care: primary care provider, psychiatric provider Legal Status: Voluntary Reaction to Hospitalization: Accepting Legal Status: Voluntary Reaction to Hospitalization: Accepting Medications and Allergies Allergies Allergy/AdvReac Type Severity Reaction Status Date / Time No Known Allergies Allergy Verified 05/10/19 10:18 Home Medications Medication Instructions Recorded Confirmed Last Taken Type allopurinoL [Zyloprim] 100 mg PO DAILY 06/13/20 04/27/21 Unknown History traZODone [Desyrel] 50 mg PO QHS 06/13/20 04/27/21 Unknown History Melatonin [Melatonin 5MG TAB] 5 mg PO QHS PRN #30 tablet 06/16/20 04/27/21 Unknown Rx Paliperidone Palmitate [Invega 156 mg IM QMONTH #1 syringe 06/16/20 04/27/21 Unknown Rx Sustenna] Albuterol Sulfate [Proventil Hfa] 6.7 gm IH TID PRN #1 hfa.aer.ad 08/25/20 04/27/21 Unknown Rx Albuterol Mdi (or & Nicu Only) 2 puff IH QID PRN #8.5 gram 01/14/21 04/27/21 Unknown Rx [ProAir HFA Inhaler] Furosemide [Lasix] 40 mg PO DAILY 30 Days #30 tablet 01/14/21 04/27/21 Unknown Rx Omeprazole 40 mg PO DAILY #30 capsule. 01/14/21 04/27/21 Unknown Rx AtorvaSTATin [Lipitor] 40 mg PO QHS 04/26/21 04/27/21 Unknown History Benztropine Mesylate 1 tab PO QHS 04/26/21 04/27/21 Unknown History Budesonide/Formoterol Fumarate 1 puff INHALATION QDAY 04/26/21 04/27/21 Unknown History [Symbicort 80-4.5 Mcg Inhaler] Metoprolol [Lopressor] 100 mg PO BID 04/26/21 04/27/21 Unknown History Nitroglycerin [Nitrostat] 1 mg SL PRN 04/26/21 04/27/21 Unknown History Ondansetron [Zofran Odt] 4 mg PO Q8HR PRN 04/26/21 04/27/21 Unknown History Spironolactone [Aldactone] 50 mg PO QDAY 04/26/21 04/27/21 Unknown History lisinopriL [Zestril TAB] 20 mg PO QDAY 04/26/21 04/27/21 Unknown History Active Meds: Active Medications Benztropine Mesylate (Benztropine 1 Mg Tab) 1 mg PO HS [facility] Last Admin: 04/27/21 22:21 Dose: 1 mg Documented by: Melatonin (Melatonin 5 Mg Tab) 5 mg PO QHS PRN PRN Reason: Sleep Metoprolol Tartrate (Metoprolol Tartrate 100 Mg Tab) 100 mg PO BID [facility] Last Admin: 04/28/21 09:20 Dose: 100 mg Documented by: Trazodone HCl (Trazodone 50 Mg Tab) 50 mg PO QHS [facility] Last Admin: 04/27/21 22:21 Dose: 50 mg Documented by: Results - Results Labs/Vitals: Laboratory Last Values POC Glucose 105 mg/dL (70-105) 04/27/21 20:15 Last Vital Signs Temp 98.1 F 04/28/21 08:40 Pulse 68 04/28/21 08:40 Resp 20 04/28/21 08:40 BP 134/86 04/28/21 09:20 Pulse Ox 99 04/28/21 08:40 Physical Examination - Constitutional Vitals: Vital Signs Temp Pulse Resp BP Pulse Ox 98.1 F 68 20 134/86 99 04/28/21 08:40 04/28/21 08:40 04/28/21 08:40 04/28/21 09:20 04/28/21 08:40 Temperature -Last 24 Hours Temperature 98.1 F Temperature 98.1 F Temperature 98.6 F Mental Status Exam - Vital signs Last Vital Signs Temp 98.1 F 04/28/21 08:40 Pulse 68 04/28/21 08:40 Resp 20 04/28/21 08:40 BP 134/86 04/28/21 09:20 Pulse Ox 99 04/28/21 08:40 Physician Certification - Certification Statement Physician Certification Statement: This is an acknowledgement statement that RAJIV PEÑA is a 60 year old M who requires inpatient psychiatric admission for treatment which could reaso nably be expected to improve the patient's condition for Estimated period of time patient will need to remain in the hospital: [ ] Plan for post-hospital care: [ ]
[2021-04-28] MEDS ORDERED: ALBUTEROL 8.5 GM MDI INHALATION IH PRN (10:44)
[2021-04-28] MEDS ORDERED: MELATONIN 5 MG TAB PO PRN (10:44)
[2021-04-28] MEDS ORDERED: ONDANSETRON 4 MG ODT TAB PO PRN (10:44)
[2021-04-28] MEDS ORDERED: ALBUTEROL 2.5 MG/3 ML NEBU IH PRN ×2 (10:44→12:00)
[2021-04-28] MEDS ORDERED: NON-FORMULARY EACH (Omeprazole [Omeprazole] 40 MG Capsule.Dr) PO SCH (10:45)
[2021-04-28] MEDS ORDERED: NITROGLYCERIN 0.4 MG TAB SUBL SL SCH (11:00)
[2021-04-28] MEDS ORDERED: METOPROLOL TARTRATE 100 MG TAB PO SCH (11:00)
[2021-04-28] MEDS ORDERED: PALIPERIDONE PALMITATE 156 MG/ML INJ IM SCH (11:00)
[2021-04-28] MEDS: allopurinoL 100 MG TAB PO SCH (11:54)
[2021-04-28] MEDS: SPIRONOLACTONE 50 MG TAB PO SCH (11:55)
[2021-04-28] MEDS: FUROSEMIDE 40 MG TAB PO SCH (11:55)
[2021-04-28] MEDS: PANTOPRAZOLE 40 MG TAB PO SCH (11:55)
[2021-04-28] MEDS: LISINOPRIL 40 MG TAB PO SCH (11:56)
[2021-04-28] MEDS: ARFORMOTEROL 15 MCG/2 ML NEBU IH SCH ×2 (12:07→21:44)
[2021-04-28] MEDS: BUDESONIDE 0.5 MG/2 ML NEBU IH SCH ×2 (12:07→21:44)
--- NOTE | 2021-04-28 13:55 | Consultation ---
History of Present Illness - Reason for Consult Consult date: 04/28/21 Hypertension, CHF, Asthma Requesting physician: WILMER TEJADA - History of Present Illness Patient is 60 yo with history of schizophrenia, depression, hypertension, CHF, asthma. He was admitted to Psychiatry because of hallucinations and suicidal thoughts. The hospitalist service has been consulted for medical management of multiple co-morbidities. Currently he denies chest pain, denies SOB. No fever Past History Past Medical History: arthritis, heart failure (chronic systolic), hypertension, other (gout,asthma,depression) Past Surgical History: No surgical history Social history: smoking Family history: hypertension Medications and Allergies Allergies Allergy/AdvReac Type Severity Reaction Status Date / Time No Known Allergies Allergy Verified 05/10/19 10:18 Home Medications Medication Instructions Recorded Confirmed Last Taken Type allopurinoL [Zyloprim] 100 mg PO DAILY 06/13/20 04/27/21 Unknown History traZODone [Desyrel] 50 mg PO QHS 06/13/20 04/27/21 Unknown History Melatonin [Melatonin 5MG TAB] 5 mg PO QHS PRN #30 tablet 06/16/20 04/27/21 Unknown Rx Paliperidone Palmitate [Invega 156 mg IM QMONTH #1 syringe 06/16/20 04/27/21 Unknown Rx Sustenna] Albuterol Sulfate [Proventil Hfa] 6.7 gm IH TID PRN #1 hfa.aer.ad 08/25/20 04/27/21 Unknown Rx Albuterol Mdi (or & Nicu Only) 2 puff IH QID PRN #8.5 gram 01/14/21 04/27/21 Unknown Rx [ProAir HFA Inhaler] Furosemide [Lasix] 40 mg PO DAILY 30 Days #30 tablet 01/14/21 04/27/21 Unknown Rx Omeprazole 40 mg PO DAILY #30 capsule.dr 01/14/21 04/27/21 Unknown Rx AtorvaSTATin [Lipitor] 40 mg PO QHS 04/26/21 04/27/21 Unknown History Benztropine Mesylate 1 tab PO QHS 04/26/21 04/27/21 Unknown History Budesonide/Formoterol Fumarate 1 puff INHALATION QDAY 04/26/21 04/27/21 Unknown History [Symbicort 80-4.5 Mcg Inhaler] Metoprolol [Lopressor] 100 mg PO BID 04/26/21 04/27/21 Unknown History Nitroglycerin [Nitrostat] 1 mg SL PRN 04/26/21 04/27/21 Unknown History Ondansetron [Zofran Odt] 4 mg PO Q8HR PRN 04/26/21 04/27/21 Unknown History Spironolactone [Aldactone] 50 mg PO QDAY 04/26/21 04/27/21 Unknown History lisinopriL [Zestril TAB] 20 mg PO QDAY 04/26/21 04/27/21 Unknown History Active Meds: Active Medications Albuterol (Albuterol 2.5 Mg/3 Ml Nebu) 2.5 mg IH QIDRT PRN PRN Reason: Wheezing Allopurinol (Allopurinol 100 Mg Tab) 100 mg PO DAILY [facility] Last Admin: 04/28/21 11:54 Dose: 100 mg Documented by: Arformoterol Tartrate (Arformoterol 15 Mcg/2 Ml Nebu) 15 mcg IH Q12HRT [facility] Last Admin: 04/28/21 12:07 Dose: Not Given Documented by: Atorvastatin Calcium (Atorvastatin 40 Mg Tab) 40 mg PO QHS [facility] Benztropine Mesylate (Benztropine 1 Mg Tab) 1 mg PO HS [facility] Last Admin: 04/27/21 22:21 Dose: 1 mg Documented by: Budesonide (Budesonide 0.5 Mg/2 Ml Nebu) 0.5 mg IH Q12HRT [facility] Last Admin: 04/28/21 12:07 Dose: Not Given Documented by: Furosemide (Furosemide 40 Mg Tab) 40 mg PO DAILY [facility] Last Admin: 04/28/21 11:55 Dose: 40 mg Documented by: Lisinopril (Lisinopril 40 Mg Tab) 20 mg PO QDAY [facility] Last Admin: 04/28/21 11:56 Dose: 20 mg Documented by: Melatonin (Melatonin 5 Mg Tab) 5 mg PO QHS PRN PRN Reason: Sleep Metoprolol Tartrate (Metoprolol Tartrate 100 Mg Tab) 100 mg PO BID [facility] Last Admin: 04/28/21 09:20 Dose: 100 mg Documented by: Nitroglycerin (Nitroglycerin 0.4 Mg Tab Subl) 1 mg SL PRN [facility] Ondansetron HCl (Ondansetron 4 Mg Odt Tab) 4 mg PO Q8HR PRN PRN Reason: Nausea Pantoprazole Sodium (Pantoprazole 40 Mg Tab) 40 mg PO DAILY [facility] Last Admin: 04/28/21 11:55 Dose: 40 mg Documented by: Spironolactone (Spironolactone 50 Mg Tab) 50 mg PO QDAY [facility] Last Admin: 04/28/21 11:55 Dose: 50 mg Documented by: Trazodone HCl (Trazodone 50 Mg Tab) 50 mg PO QHS [facility] Last Admin: 04/27/21 22:21 Dose: 50 mg Documented by: Review of Systems All systems: negative (No fever, no chest pain, no abd pain. All other systems reviewed and are negative.) Exam - Physical Exam Narrative exam: Gen: Not in acute distress, sitting up in chair HEENT: Normochephalic, atraumatic Neck:supple, No JVD Lungs:Clear to auscultation bilaterally, no rales, no wheeze Heart:S1 and S2 reg, no murmurs, rubs or gallop Abd: soft, non tender, non distended, normal bowel sounds Ext: No edema, no clubbing, no cyanosis Neuro:Awake,alert,oriented X 3, moves all ext, no focal neurological signs - Constitutional Vitals: Temp Pulse Resp BP Pulse Ox 98.1 F 61 20 128/78 91 04/28/21 08:40 04/28/21 11:56 04/28/21 08:40 04/28/21 11:56 04/28/21 11:46 Assessment and Plan Schizophrenia with suicidal thoughts Admitted to Psychiatry attending Hypertension BP stable, most recent is 128/78 Continue meds from home Chronic systolic CHF Stable No shortness of breath History of asthma Stable Obesity Patient is fiull code Thanks Dr. Tejada for consulting us. Will follow.
[2021-04-28 20:18] LABS: Chol/HDL Ratio 4.17 %
[2021-04-28] MEDS: BENZTROPINE 1 MG TAB PO SCH (21:42)
[2021-04-28] MEDS: traZODone 50 MG TAB PO SCH (21:42)
[2021-04-29] MEDS: BUDESONIDE 0.5 MG/2 ML NEBU IH SCH (08:02)
[2021-04-29] MEDS: ARFORMOTEROL 15 MCG/2 ML NEBU IH SCH (08:02)
--- NOTE | 2021-04-29 08:41 | Progress Note ---
Subjective Date of service: 04/29/21 Principal diagnosis: Schizoaffective Disorder Subjective Comment: Per Nurse Note: Last evening the patient spent in his room. He only comes out to eat. Patient presents as sad and withdrawn. He denies si/hi but is observed talking to himself. His appetite is good and he is medication compliant. Overnight the patient rested quietly. He slept 8 hours. Will continue to monitor patient for safety. The patient was seen today, he is a wake and calm. He says "I have a bad spirit in me." The patient asks, "how do I get that out." He denies hallucinations, but states "it's when I get upset I start to seep bats flying in the [place]." He seems a bit paranoid as well. He states that "people are messing around in your food and it makes spirits come over me." When asked about suicidal thoughts, the patient says "not now." He denies homicidal thoughts. REVIEW OF SYSTEMS Constitutional: Negative for weight loss ENT: Negative for stridor Respiratory: Negative for cough or hemoptysis All other systems reviewed and are negative MENTAL STATUS EXAMINATION General Appearance: Dressed appropriately, Behavior: Intrusive Mood: Irritable Affect and affective range: congruent with mood Thought Process: Tangential Speech: Low tone Thought content: Suicidal Ideation: SI Homicidal Ideation: Yes Hallucinations: Visual Delusions: Yes Insight and Judgment: Limited insight and judgment Memory: impaired Attention: Normal Orientation: Alert, oriented, anxious and confused Assessment Schizoaffective Disorder Treatment Plan Patient admitted for inpatient psychiatric evaluation, medication adjustment and close monitoring The patient's behavior, mood, sleep and appetite will be closely monitored. Patient enrolled in individual and group therapeutic sessions and encouraged to attend. Patient provided with a safe and structured environment. Patient's physical health needs will be addressed by the Hospitalist. Ho spitalist Consulted Labs including CBC, CMP, Lipid profile and Hemoglobin A1C levels ordered for baseline reference Social Assessment will be completed and the Setter Up will work with patient and family to ensure a suitable and safe disposition Medication adjustment will be made as clinically indicated Start Risperidone 0.25mg po BID Usual Wellness [place]/Preservation: - Start Trazodone 50 mg po QHS & 50 mg po QHS PRN between 10 PM & 2 AM for insomnia - Start Melatonin 5 mg po QHS to promote circadian rhythm - Start [place]-3 for brain health, reduce impulsivity, and as adjunctive treatment for mood disorder, continue upon discharge given overall benefits. - Start B1 prophylaxis with 200 mg po for 5 days The patient agreed on the treatment plan, understood the risk, benefit, alternative treatment, potential consequence of no treatment, and gave informed consent. Estimated days: 7 Post hospital care: primary care provider, psychiatric provider Medications and Allergies Allergies Allergy/AdvReac Type Severity Reaction Status Date / Time No Known Allergies Allergy Verified 05/10/19 10:18 Home Medications Medication Instructions Recorded Confirmed Last Taken Type allopurinoL [Zyloprim] 100 mg PO DAILY 06/13/20 04/27/21 Unknown History traZODone [Desyrel] 50 mg PO QHS 06/13/20 04/27/21 Unknown History Melatonin [Melatonin 5MG TAB] 5 mg PO QHS PRN #30 tablet 06/16/20 04/27/21 Unknown Rx Paliperidone Palmitate [Invega 156 mg IM QMONTH #1 syringe 06/16/20 04/27/21 Unknown Rx Sustenna] Albuterol Sulfate [Proventil Hfa] 6.7 gm IH TID PRN #1 hfa.aer.ad 08/25/20 04/27/21 Unknown Rx Albuterol Mdi (or & Nicu Only) 2 puff IH QID PRN #8.5 gram 01/14/21 04/27/21 Unknown Rx [ProAir HFA Inhaler] Furosemide [Lasix] 40 mg PO DAILY 30 Days #30 tablet 01/14/21 04/27/21 Unknown Rx Omeprazole 40 mg PO DAILY #30 capsule.dr 01/14/21 04/27/21 Unknown Rx AtorvaSTATin [Lipitor] 40 mg PO QHS 04/26/21 04/27/21 Unknown History Benztropine Mesylate 1 tab PO QHS 04/26/21 04/27/21 Unknown History Budesonide/Formoterol Fumarate 1 puff INHALATION QDAY 04/26/21 04/27/21 Unknown History [Symbicort 80-4.5 Mcg Inhaler] Metoprolol [Lopressor] 100 mg PO BID 04/26/21 04/27/21 Unknown History Nitroglycerin [Nitrostat] 1 mg SL PRN 04/26/21 04/27/21 Unknown History Ondansetron [Zofran Odt] 4 mg PO Q8HR PRN 04/26/21 04/27/21 Unknown History Spironolactone [Aldactone] 50 mg PO QDAY 04/26/21 04/27/21 Unknown History lisinopriL [Zestril TAB] 20 mg PO QDAY 04/26/21 04/27/21 Unknown History Active Meds: Active Medications Albuterol (Albuterol 2.5 Mg/3 Ml Nebu) 2.5 mg IH QIDRT PRN PRN Reason: Wheezing Allopurinol (Allopurinol 100 Mg Tab) 100 mg PO DAILY [facility] Last Admin: 04/28/21 11:54 Dose: 100 mg Documented by: Arformoterol Tartrate (Arformoterol 15 Mcg/2 Ml Nebu) 15 mcg IH Q12HRT [facility] Last Admin: 04/29/21 08:02 Dose: Not Given Documented by: Atorvastatin Calcium (Atorvastatin 40 Mg Tab) 40 mg PO QHS [facility] Last Admin: 04/28/21 21:44 Dose: 40 mg Documented by: Benztropine Mesylate (Benztropine 1 Mg Tab) 1 mg PO HS [facility] Last Admin: 04/28/21 21:42 Dose: 1 mg Documented by: Budesonide (Budesonide 0.5 Mg/2 Ml Nebu) 0.5 mg IH Q12HRT [facility] Last Admin: 04/29/21 08:02 Dose: Not Given Documented by: Furosemide (Furosemide 40 Mg Tab) 40 mg PO DAILY [facility] Last Admin: 04/28/21 11:55 Dose: 40 mg Documented by: Lisinopril (Lisinopril 40 Mg Tab) 20 mg PO QDAY [facility] Last Admin: 04/28/21 11:56 Dose: 20 mg Documented by: Melatonin (Melatonin 5 Mg Tab) 5 mg PO QHS PRN PRN Reason: Sleep Metoprolol Tartrate (Metoprolol Tartrate 100 Mg Tab) 100 mg PO BID [facility] Last Admin: 04/28/21 21:38 Dose: Not Given Documented by: Nitroglycerin (Nitroglycerin 0.4 Mg Tab Subl) 1 mg SL PRN [facility] Ondansetron HCl (Ondansetron 4 Mg Odt Tab) 4 mg PO Q8HR PRN PRN Reason: Nausea Pantoprazole Sodium (Pantoprazole 40 Mg Tab) 40 mg PO DAILY [facility] Last Admin: 04/28/21 11:55 Dose: 40 mg Documented by: Spironolactone (Spironolactone 50 Mg Tab) 50 mg PO QDAY [facility] Last Admin: 04/28/21 11:55 Dose: 50 mg Documented by: Trazodone HCl (Trazodone 50 Mg Tab) 50 mg PO QHS [facility] Last Admin: 04/28/21 21:42 Dose: 50 mg Documented by: Results - Results Labs/Vitals: Laboratory Last Values POC Glucose 105 mg/dL (70-105) 04/27/21 20:15 Hemoglobin A1c 6.4 % (4-6) H 04/28/21 19:05 Triglycerides 84 mg/dL (2-149) 04/28/21 19:05 Cholesterol 142 mg/dL (50-199) 04/28/21 19:05 LDL Cholesterol Direct 105 mg/dL (50-130) 04/28/21 19:05 HDL Cholesterol 34 mg/dL (40-59) L 04/28/21 19:05 Cholesterol/HDL Ratio 4.17 % 04/28/21 19:05 Last Vital Signs Temp 98.1 F 04/28/21 19:44 Pulse 57 L 04/28/21 21:38 Resp 16 04/28/21 19:44 BP 113/53 04/28/21 21:38 Pulse Ox 92 04/28/21 19:44
[2021-04-29] MEDS: PANTOPRAZOLE 40 MG TAB PO SCH (09:03)
[2021-04-29] MEDS: FUROSEMIDE 40 MG TAB PO SCH (09:03)
[2021-04-29] MEDS: SPIRONOLACTONE 50 MG TAB PO SCH (09:04)
[2021-04-29] MEDS: METOPROLOL TARTRATE 100 MG TAB PO SCH ×2 (09:04→21:31)
[2021-04-29] MEDS: allopurinoL 100 MG TAB PO SCH (09:04)
[2021-04-29] MEDS: LISINOPRIL 40 MG TAB PO SCH (09:04)
[2021-04-29] MEDS: risperiDONE 0.25 MG TAB PO SCH ×2 (10:07→21:30)
[2021-04-29] MEDS: traZODone 50 MG TAB PO SCH (21:31)
[2021-04-29] MEDS: BENZTROPINE 1 MG TAB PO SCH (21:31)
--- NOTE | 2021-04-30 09:19 | Progress Note ---
Subjective Date of service: 04/30/21 Principal diagnosis: Schizoaffective Disorder Subjective Comment: The patient was seen today, he is a wake and calm. He says he feels a little better today. The patient denies SI/HI or hallucinations of any kind. Will continue to monitor and plan for a safe discharge tomorrow or Saturday. REVIEW OF SYSTEMS Constitutional: Negative for weight loss ENT: Negative for stridor Respiratory: Negative for cough or hemoptysis All other systems reviewed and are negative MENTAL STATUS EXAMINATION General Appearance: Dressed appropriately, Behavior: Intrusive Mood: Irritable Affect and affective range: congruent with mood Thought Process: Tangential Speech: Low tone Thought content: Suicidal Ideation: Denies Homicidal Ideation: Denies Hallucinations: Denies Delusions: None elicited Insight and Judgment: Limited insight and judgment Memory: impaired Attention: Normal Orientation: Alert, oriented, anxious and confused Assessment Schizoaffective Disorder Treatment Plan Patient admitted for inpatient psychiatric evaluation, medication adjustment and close monitoring The patient's behavior, mood, sleep and appetite will be closely monitored. Patient enrolled in individual and group therapeutic sessions and encouraged to attend. Patient provided with a safe and structured environment. Patient's physical health needs will be addressed by the Hospitalist. Hospitalist Consulted Labs including CBC, CMP, Lipid profile and Hemoglobin A1C levels ordered for baseline reference Social Assessment will be completed and the Liaison Engineer will work with patient and family to ensure a suitable and safe disposition Medication adjustment will be made as clinically indicated Start Risperidone 0.25mg po BID yesrerday No changes made today Usual Wellness Jehovah'S Witness/Preservation: - Start Trazodone 50 mg po QHS & 50 mg po QHS PRN between 10 PM & 2 AM for insomnia - Start Melatonin 5 mg po QHS to promote circadian rhythm - Start [place]-3 for brain health, reduce impulsivity, and as adjunctive treatment for mood disorder, continue upon discharge given overall benefits. - Start B1 prophylaxis with 200 mg po for 5 days The patient agreed on the treatment plan, understood the risk, benefit, alternative treatment, potential consequence of no treatment, and gave informed consent. Estimated days: 7 Post hospital care: primary care provider, psychiatric provider Medications and Allergies Allergies Allergy/AdvReac Type Severity Reaction Status Date / Time No Known Allergies Allergy Verified 05/10/19 10:18 Home Medications Medication Instructions Recorded Confirmed Last Taken Type allopurinoL [Zyloprim] 100 mg PO DAILY 06/13/20 04/27/21 Unknown History traZODone [Desyrel] 50 mg PO QHS 06/13/20 04/27/21 Unknown History Melatonin [Melatonin 5MG TAB] 5 mg PO QHS PRN #30 tablet 06/16/20 04/27/21 Unknown Rx Paliperidone Palmitate [Invega 156 mg IM QMONTH #1 syringe 06/16/20 04/27/21 Unknown Rx Sustenna] Albuterol Sulfate [Proventil Hfa] 6.7 gm IH TID PRN #1 hfa.aer.ad 08/25/20 04/27/21 Unknown Rx Albuterol Mdi (or & Nicu Only) 2 puff IH QID PRN #8.5 gram 01/14/21 04/27/21 Unknown Rx [ProAir HFA Inhaler] Furosemide [Lasix] 40 mg PO DAILY 30 Days #30 tablet 01/14/21 04/27/21 Unknown Rx Omeprazole 40 mg PO DAILY #30 capsule. 01/14/21 04/27/21 Unknown Rx AtorvaSTATin [Lipitor] 40 mg PO QHS 04/26/21 04/27/21 Unknown History Benztropine Mesylate 1 tab PO QHS 04/26/21 04/27/21 Unknown History Budesonide/Formoterol Fumarate 1 puff INHALATION QDAY 04/26/21 04/27/21 Unknown History [Symbicort 80-4.5 Mcg Inhaler] Metoprolol [Lopressor] 100 mg PO BID 04/26/21 04/27/21 Unknown History Nitroglycerin [Nitrostat] 1 mg SL PRN 04/26/21 04/27/21 Unknown History Ondansetron [Zofran Odt] 4 mg PO Q8HR PRN 04/26/21 04/27/21 Unknown History Spironolactone [Aldactone] 50 mg PO QDAY 04/26/21 04/27/21 Unknown History lisinopriL [Zestril TAB] 20 mg PO QDAY 04/26/21 04/27/21 Unknown History Active Meds: Active Medications Albuterol (Albuterol 2.5 Mg/3 Ml Nebu) 2.5 mg IH QIDRT PRN PRN Reason: Wheezing Allopurinol (Allopurinol 100 Mg Tab) 100 mg PO DAILY [facility] Last Admin: 04/29/21 09:04 Dose: 100 mg Documented by: Arformoterol Tartrate (Arformoterol 15 Mcg/2 Ml Nebu) 15 mcg IH Q12HRT [facility] Last Admin: 04/29/21 08:02 Dose: Not Given Documented by: Atorvastatin Calcium (Atorvastatin 40 Mg Tab) 40 mg PO QHS [facility] Last Admin: 04/29/21 21:30 Dose: 40 mg Documented by: Benztropine Mesylate (Benztropine 1 Mg Tab) 1 mg PO HS [facility] Last Admin: 04/29/21 21:31 Dose: 1 mg Documented by: Budesonide (Budesonide 0.5 Mg/2 Ml Nebu) 0.5 mg IH Q12HRT [facility] Last Admin: 04/29/21 08:02 Dose: Not Given Documented by: Furosemide (Furosemide 40 Mg Tab) 40 mg PO DAILY [facility] Last Admin: 04/29/21 09:03 Dose: 40 mg Documented by: Lisinopril (Lisinopril 40 Mg Tab) 20 mg PO QDAY [facility] Last Admin: 04/29/21 09:04 Dose: 20 mg Documented by: Melatonin (Melatonin 5 Mg Tab) 5 mg PO QHS PRN PRN Reason: Sleep Metoprolol Tartrate (Metoprolol Tartrate 100 Mg Tab) 100 mg PO BID [facility] Last Admin: 04/29/21 21:31 Dose: Not Given Documented by: Nitroglycerin (Nitroglycerin 0.4 Mg Tab Subl) 1 mg SL PRN [facility] Ondansetron HCl (Ondansetron 4 Mg Odt Tab) 4 mg PO Q8HR PRN PRN Reason: Nausea Pantoprazole Sodium (Pantoprazole 40 Mg Tab) 40 mg PO DAILY [facility] Last Admin: 04/29/21 09:03 Dose: 40 mg Documented by: Risperidone (Risperidone 0.25 Mg Tab) 0.25 mg PO BID [facility] Last Admin: 04/29/21 21:30 Dose: 0.25 mg Documented by: Spironolactone (Spironolactone 50 Mg Tab) 50 mg PO QDAY [facility] Last Admin: 04/29/21 09:04 Dose: 50 mg Documented by: Trazodone HCl (Trazodone 50 Mg Tab) 50 mg PO QHS [facility] Last Admin: 04/29/21 21:31 Dose: 50 mg Documented by: Results - Results Labs/Vitals: Laboratory Last Values POC Glucose 105 mg/dL (70-105) 04/27/21 20:15 Hemoglobin A1c 6.4 % (4-6) H 04/28/21 19:05 Triglycerides 84 mg/dL (2-149) 04/28/21 19:05 Cholesterol 142 mg/dL (50-199) 04/28/21 19:05 LDL Cholesterol Direct 105 mg/dL (50-130) 04/28/21 19:05 HDL Cholesterol 34 mg/dL (40-59) L 04/28/21 19:05 Cholesterol/HDL Ratio 4.17 % 04/28/21 19:05 Last Vital Signs Temp 97.9 F 04/30/21 08:58 Pulse 60 04/30/21 08:58 Resp 20 04/30/21 08:58 BP 98/56 04/30/21 08:58 Pulse Ox 96 04/29/21 19:26
[2021-04-30] MEDS: FUROSEMIDE 40 MG TAB PO SCH (09:57)
[2021-04-30] MEDS: PANTOPRAZOLE 40 MG TAB PO SCH (09:58)
[2021-04-30] MEDS: risperiDONE 0.25 MG TAB PO SCH ×2 (09:58→21:27)
[2021-04-30] MEDS: METOPROLOL TARTRATE 100 MG TAB PO SCH ×2 (09:59→21:28)
[2021-04-30] MEDS: SPIRONOLACTONE 50 MG TAB PO SCH (10:00)
[2021-04-30] MEDS: allopurinoL 100 MG TAB PO SCH (10:01)
[2021-04-30] MEDS: LISINOPRIL 40 MG TAB PO SCH (10:01)
[2021-04-30] MEDS: traZODone 50 MG TAB PO SCH (21:27)
[2021-04-30] MEDS: BENZTROPINE 1 MG TAB PO SCH (21:28)
[2021-04-30] MEDS: BUDESONIDE 0.5 MG/2 ML NEBU IH SCH (22:00)
[2021-04-30] MEDS: ARFORMOTEROL 15 MCG/2 ML NEBU IH SCH (22:00)
[2021-05-01] MEDS: allopurinoL 100 MG TAB PO SCH (09:35)
[2021-05-01] MEDS: PANTOPRAZOLE 40 MG TAB PO SCH (09:35)
[2021-05-01] MEDS: FUROSEMIDE 40 MG TAB PO SCH (09:35)
[2021-05-01] MEDS: SPIRONOLACTONE 50 MG TAB PO SCH (09:36)
[2021-05-01] MEDS: LISINOPRIL 20 MG TAB PO SCH (09:36)
[2021-05-01] MEDS: risperiDONE 0.25 MG TAB PO SCH (09:37)
[2021-05-01] MEDS: METOPROLOL TARTRATE 100 MG TAB PO SCH ×2 (09:37→21:30)
--- NOTE | 2021-05-01 10:35 | Progress Note ---
Subjective Date of service: 05/01/21 Principal diagnosis: Schizoaffective Disorder Subjective Comment: Per Nurse Note: pt rested well overnight, slept for 8hrs, no distress noted, will continue to monitor for safety. Patient seen in the common area eating breakfast. He reports having visual/ au ditory hallucinations. He states I see bats flying over the [place]." Patient reports having racing thoughts. He reports mood as "good. " Nurses reports patient is compliant with medications. He denies any current suicidal/ homicidal thoughts and denies AVHs. REVIEW OF SYSTEMS Constitutional: Negative for weight loss ENT: Negative for stridor Respiratory: Negative for cough or hemoptysis All other systems reviewed and are negative MENTAL STATUS EXAMINATION General Appearance: Dressed appropriately, Behavior: cooperative Mood: "good" Affect and affective range: congruent with mood Thought Process: Tangential Speech: Low tone Thought content: Suicidal Ideation: Denies Homicidal Ideation: Denies Hallucinations: Visual and auditory Delusions: None elicited Insight and Judgment: Limited insight and judgment Memory: impaired Attention: Normal Orientation: Alert, oriented, anxious and confused Assessment Schizoaffective Disorder Treatment Plan Patient admitted for inpatient psychiatric evaluation, medication adjustment and close monitoring The patient's behavior, mood, sleep and appetite will be closely monitored. Patient enrolled in individual and group therapeutic sessions and encouraged to attend. Patient provided with a safe and structured environment. Patient's physical health needs will be addressed by the Hospitalist. Hospitalist Consulted Labs including CBC, CMP, Lipid profile and Hemoglobin A1C levels ordered for baseline reference Social Assessment will be completed and the Brewmaster will work with patient and family to ensure a suitable and safe disposition Medication adjustment will be made as clinically indicated Start Risperidone 1mg po BID Usual Wellness Restorationist/Preservation: - Continue Trazodone 50 mg po QHS & 50 mg po QHS PRN between 10 PM & 2 AM for insomnia - Continue- Melatonin 5 mg po QHS to promote circadian rhythm -Continue -[place]-3 for brain health, reduce impulsivity, and as adjunctive treatment for mood disorder, continue upon discharge given overall benefits. - Continue- B1 prophylaxis with 200 mg po for 5 days The patient agreed on the treatment plan, understood the risk, benefit, alternative treatment, potential consequence of no treatment, and gave informed consent. Estimated days: 7 Post hospital care: primary care provider, psychiatric provider Medications and Allergies Allergies Allergy/AdvReac Type Severity Reaction Status Date / Time No Known Allergies Allergy Verified 05/10/19 10:18 Home Medications Medication Instructions Recorded Confirmed Last Taken Type allopurinoL [Zyloprim] 100 mg PO DAILY 06/13/20 04/27/21 Unknown History traZODone [Desyrel] 50 mg PO QHS 06/13/20 04/27/21 Unknown History Melatonin [Melatonin 5MG TAB] 5 mg PO QHS PRN #30 tablet 06/16/20 04/27/21 Unknown Rx Paliperidone Palmitate [Invega 156 mg IM QMONTH #1 syringe 06/16/20 04/27/21 Unknown Rx Sustenna] Albuterol Sulfate [Proventil Hfa] 6.7 gm IH TID PRN #1 hfa.aer.ad 08/25/20 04/27/21 Unknown Rx Albuterol Mdi (or & Nicu Only) 2 puff IH QID PRN #8.5 gram 01/14/21 04/27/21 Unknown Rx [ProAir HFA Inhaler] Furosemide [Lasix] 40 mg PO DAILY 30 Days #30 tablet 01/14/21 04/27/21 Unknown Rx Omeprazole 40 mg PO DAILY #30 capsule. 01/14/21 04/27/21 Unknown Rx AtorvaSTATin [Lipitor] 40 mg PO QHS 04/26/21 04/27/21 Unknown History Benztropine Mesylate 1 tab PO QHS 04/26/21 04/27/21 Unknown History Budesonide/Formoterol Fumarate 1 puff INHALATION QDAY 04/26/21 04/27/21 Unknown History [Symbicort 80-4.5 Mcg Inhaler] Metoprolol [Lopressor] 100 mg PO BID 04/26/21 04/27/21 Unknown History Nitroglycerin [Nitrostat] 1 mg SL PRN 04/26/21 04/27/21 Unknown History Ondansetron [Zofran Odt] 4 mg PO Q8HR PRN 04/26/21 04/27/21 Unknown History Spironolactone [Aldactone] 50 mg PO QDAY 04/26/21 04/27/21 Unknown History lisinopriL [Zestril TAB] 20 mg PO QDAY 04/26/21 04/27/21 Unknown History Active Meds: Active Medications Albuterol (Albuterol 2.5 Mg/3 Ml Nebu) 2.5 mg IH QIDRT PRN PRN Reason: Wheezing Allopurinol (Allopurinol 100 Mg Tab) 100 mg PO DAILY [facility] Last Admin: 05/01/21 09:35 Dose: 100 mg Documented by: Arformoterol Tartrate (Arformoterol 15 Mcg/2 Ml Nebu) 15 mcg IH Q12HRT [facility] Last Admin: 04/30/21 22:00 Dose: Not Given Documented by: Atorvastatin Calcium (Atorvastatin 40 Mg Tab) 40 mg PO QHS [facility] Last Admin: 04/30/21 21:27 Dose: 40 mg Documented by: Benztropine Mesylate (Benztropine 1 Mg Tab) 1 mg PO HS [facility] Last Admin: 04/30/21 21:28 Dose: 1 mg Documented by: Budesonide (Budesonide 0.5 Mg/2 Ml Nebu) 0.5 mg IH Q12HRT [facility] Last Admin: 04/30/21 22:00 Dose: Not Given Documented by: Furosemide (Furosemide 40 Mg Tab) 40 mg PO DAILY [facility] Last Admin: 05/01/21 09:35 Dose: 40 mg Documented by: Lisinopril (Lisinopril 20 Mg Tab) 20 mg PO QDAY [facility] Last Admin: 05/01/21 09:36 Dose: 20 mg Documented by: Melatonin (Melatonin 5 Mg Tab) 5 mg PO QHS PRN PRN Reason: Sleep Metoprolol Tartrate (Metoprolol Tartrate 100 Mg Tab) 100 mg PO BID [facility] Last Admin: 05/01/21 09:37 Dose: Not Given Documented by: Nitroglycerin (Nitroglycerin 0.4 Mg Tab Subl) 1 mg SL PRN [facility] Ondansetron HCl (Ondansetron 4 Mg Odt Tab) 4 mg PO Q8HR PRN PRN Reason: Nausea Pantoprazole Sodium (Pantoprazole 40 Mg Tab) 40 mg PO DAILY [facility] Last Admin: 05/01/21 09:35 Dose: 40 mg Documented by: Risperidone (Risperidone 0.25 Mg Tab) 0.25 mg PO BID [facility] Last Admin: 05/01/21 09:37 Dose: 0.25 mg Documented by: Spironolactone (Spironolactone 50 Mg Tab) 50 mg PO QDAY [facility] Last Admin: 05/01/21 09:36 Dose: 50 mg Documented by: Trazodone HCl (Trazodone 50 Mg Tab) 50 mg PO QHS [facility] Last Admin: 04/30/21 21:27 Dose: 50 mg Documented by: Results - Results Labs/Vitals: Laboratory Last Values POC Glucose 105 mg/dL (70-105) 04/27/21 20:15 Hemoglobin A1c 6.4 % (4-6) H 04/28/21 19:05 Triglycerides 84 mg/dL (2-149) 04/28/21 19:05 Cholesterol 142 mg/dL (50-199) 04/28/21 19:05 LDL Cholesterol Direct 105 mg/dL (50-130) 04/28/21 19:05 HDL Cholesterol 34 mg/dL (40-59) L 04/28/21 19:05 Cholesterol/HDL Ratio 4.17 % 04/28/21 19:05 Last Vital Signs Temp 98.6 F 04/30/21 20:04 Pulse 56 L 05/01/21 09:37 Resp 16 04/30/21 20:04 BP 110/69 05/01/21 09:37 Pulse Ox 95 04/30/21 20:04
[2021-05-01] MEDS: risperiDONE 1 MG TAB PO SCH (21:31)
[2021-05-01] MEDS: BENZTROPINE 1 MG TAB PO SCH (21:31)
[2021-05-01] MEDS: traZODone 50 MG TAB PO SCH (21:35)
[2021-05-01] MEDS: ARFORMOTEROL 15 MCG/2 ML NEBU IH SCH ×2 (21:50→21:52)
[2021-05-01] MEDS: BUDESONIDE 0.5 MG/2 ML NEBU IH SCH ×3 (21:50→21:53)
[2021-05-02] MEDS: PANTOPRAZOLE 40 MG TAB PO SCH (09:43)
[2021-05-02] MEDS: allopurinoL 100 MG TAB PO SCH (09:43)
[2021-05-02] MEDS: risperiDONE 1 MG TAB PO SCH ×2 (09:43→21:26)
[2021-05-02] MEDS: FUROSEMIDE 40 MG TAB PO SCH (09:43)
[2021-05-02] MEDS: SPIRONOLACTONE 50 MG TAB PO SCH (09:44)
[2021-05-02] MEDS: METOPROLOL TARTRATE 100 MG TAB PO SCH ×2 (09:44→22:06)
[2021-05-02] MEDS: LISINOPRIL 20 MG TAB PO SCH (09:45)
--- NOTE | 2021-05-02 09:52 | Progress Note ---
Subjective Date of service: 05/02/21 Principal diagnosis: Schizoaffective Disorder Subjective Comment: Per Nurse Note:Pt received in the day room sitting quietly. Pt keeps to self with no interaction with others. Denies pain, SI, or HI. No acute distress observed and none reported. Will continue to monitor. Patient was seen today in the activity room. Patient reports he is doing better. He reports voices is slowing down but continues to have intermittent visual hallucinations. Patient reports mood as" I feel fine, but I feel negative sometimes." He states he would like to live closer to [place]. He states sleep and appetite as good. Patient denies any current suicidal/ homicidal ideation. REVIEW OF SYSTEMS Constitutional: Negative for weight loss ENT: Negative for stridor Respiratory: Negative for cough or hemoptysis All other systems reviewed and are negative MENTAL STATUS EXAMINATION General Appearance: Dressed appropriately, Behavior: cooperative Mood: "Fine" Affect and affective range: congruent with mood Thought Process: Tangential Speech:mumbled Thought content: Suicidal Ideation: Denies Homicidal Ideation: Denies Hallucinations: Visual and auditory intermittent Delusions: None elicited Insight and Judgment: Limited insight and judgment Memory: impaired Attention: Normal Orientation: Alert, oriented Assessment Schizoaffective Disorder Treatment Plan Patient admitted for inpatient psychiatric evaluation, medication adjustment and close monitoring The patient's behavior, mood, sleep and appetite will be closely monitored. Patient enrolled in individual and group therapeutic sessions and encouraged to attend. Patient provided with a safe and structured environment. Patient's physical health needs will be addressed by the Hospitalist. Hospitalist Consulted Labs including CBC, CMP, Lipid profile and Hemoglobin A1C levels ordered for baseline reference Social Assessment will be completed and the Weather Reporter will work with patient and family to ensure a suitable and safe disposition Medication adjustment will be made as clinically indicated Continue- Risperidone 1mg po BID Usual Wellness Jew/Preservation: - Continue Trazodone 50 mg po QHS & 50 mg po QHS PRN between 10 PM & 2 AM for insomnia - Continue- Melatonin 5 mg po QHS to promote circadian rhythm -Continue -[place]-3 for brain health, reduce impulsivity, and as adjunctive treatment for mood disorder, continue upon discharge given overall benefits. - Continue- B1 prophylaxis with 200 mg po for 5 days The patient agreed on the treatment plan, understood the risk, benefit, alternative treatment, potential consequence of no treatment, and gave informed consent. Estimated days: 2 Post hospital care: primary care provider, psychiatric provider Medications and Allergies Allergies Allergy/AdvReac Type Severity Reaction Status Date / Time No Known Allergies Allergy Verified 05/10/19 10:18 Home Medications Medication Instructions Recorded Confirmed Last Taken Type allopurinoL [Zyloprim] 100 mg PO DAILY 06/13/20 04/27/21 Unknown History traZODone [Desyrel] 50 mg PO QHS 06/13/20 04/27/21 Unknown History Melatonin [Melatonin 5MG TAB] 5 mg PO QHS PRN #30 tablet 06/16/20 04/27/21 Unknown Rx Paliperidone Palmitate [Invega 156 mg IM QMONTH #1 syringe 06/16/20 04/27/21 Unknown Rx Sustenna] Albuterol Sulfate [Proventil Hfa] 6.7 gm IH TID PRN #1 hfa.aer.ad 08/25/20 04/27/21 Unknown Rx Albuterol Mdi (or & Nicu Only) 2 puff IH QID PRN #8.5 gram 01/14/21 04/27/21 Unknown Rx [ProAir HFA Inhaler] Furosemide [Lasix] 40 mg PO DAILY 30 Days #30 tablet 01/14/21 04/27/21 Unknown Rx Omeprazole 40 mg PO DAILY #30 capsule. 01/14/21 04/27/21 Unknown Rx AtorvaSTATin [Lipitor] 40 mg PO QHS 04/26/21 04/27/21 Unknown History Benztropine Mesylate 1 tab PO QHS 04/26/21 04/27/21 Unknown History Budesonide/Formoterol Fumarate 1 puff INHALATION QDAY 04/26/21 04/27/21 Unknown History [Symbicort 80-4.5 Mcg Inhaler] Metoprolol [Lopressor] 100 mg PO BID 04/26/21 04/27/21 Unknown History Nitroglycerin [Nitrostat] 1 mg SL PRN 04/26/21 04/27/21 Unknown History Ondansetron [Zofran Odt] 4 mg PO Q8HR PRN 04/26/21 04/27/21 Unknown History Spironolactone [Aldactone] 50 mg PO QDAY 04/26/21 04/27/21 Unknown History lisinopriL [Zestril TAB] 20 mg PO QDAY 04/26/21 04/27/21 Unknown History Active Meds: Active Medications Albuterol (Albuterol 2.5 Mg/3 Ml Nebu) 2.5 mg IH QIDRT PRN PRN Reason: Wheezing Allopurinol (Allopurinol 100 Mg Tab) 100 mg PO DAILY [facility] Last Admin: 05/02/21 09:43 Dose: 100 mg Documented by: Arformoterol Tartrate (Arformoterol 15 Mcg/2 Ml Nebu) 15 mcg IH Q12HRT [facility] Last Admin: 05/01/21 21:52 Dose: Not Given Documented by: Atorvastatin Calcium (Atorvastatin 40 Mg Tab) 40 mg PO QHS [facility] Last Admin: 05/01/21 21:31 Dose: 40 mg Documented by: Benztropine Mesylate (Benztropine 1 Mg Tab) 1 mg PO HS [facility] Last Admin: 05/01/21 21:31 Dose: 1 mg Documented by: Budesonide (Budesonide 0.5 Mg/2 Ml Nebu) 0.5 mg IH Q12HRT [facility] Last Admin: 05/01/21 21:53 Dose: Not Given Documented by: Furosemide (Furosemide 40 Mg Tab) 40 mg PO DAILY [facility] Last Admin: 05/02/21 09:43 Dose: 40 mg Documented by: Lisinopril (Lisinopril 20 Mg Tab) 20 mg PO QDAY [facility] Last Admin: 05/02/21 09:45 Dose: Not Given Documented by: Melatonin (Melatonin 5 Mg Tab) 5 mg PO QHS PRN PRN Reason: Sleep Metoprolol Tartrate (Metoprolol Tartrate 100 Mg Tab) 100 mg PO BID [facility] Last Admin: 05/02/21 09:44 Dose: Not Given Documented by: Nitroglycerin (Nitroglycerin 0.4 Mg Tab Subl) 1 mg SL PRN [facility] Ondansetron HCl (Ondansetron 4 Mg Odt Tab) 4 mg PO Q8HR PRN PRN Reason: Nausea Pantoprazole Sodium (Pantoprazole 40 Mg Tab) 40 mg PO DAILY [facility] Last Admin: 05/02/21 09:43 Dose: 40 mg Documented by: Risperidone (Risperidone 1 Mg Tab) 1 mg PO BID [facility] Last Admin: 05/02/21 09:43 Dose: 1 mg Documented by: Spironolactone (Spironolactone 50 Mg Tab) 50 mg PO QDAY [facility] Last Admin: 05/02/21 09:44 Dose: Not Given Documented by: Trazodone HCl (Trazodone 50 Mg Tab) 50 mg PO QHS [facility] Last Admin: 05/01/21 21:35 Dose: 50 mg Documented by: Results - Results Labs/Vitals: Laboratory Last Values POC Glucose 105 mg/dL (70-105) 04/27/21 20:15 Hemoglobin A1c 6.4 % (4-6) H 04/28/21 19:05 Triglycerides 84 mg/dL (2-149) 04/28/21 19:05 Cholesterol 142 mg/dL (50-199) 04/28/21 19:05 LDL Cholesterol Direct 105 mg/dL (50-130) 04/28/21 19:05 HDL Cholesterol 34 mg/dL (40-59) L 04/28/21 19:05 Cholesterol/HDL Ratio 4.17 % 04/28/21 19:05 Last Vital Signs Temp 98.2 F 05/02/21 06:45 Pulse 55 L 05/02/21 09:44 Resp 20 05/02/21 06:45 BP 107/52 05/02/21 09:44 Pulse Ox 92 05/02/21 06:45
[2021-05-02] MEDS: BUDESONIDE 0.5 MG/2 ML NEBU IH SCH ×2 (11:16→11:34)
[2021-05-02] MEDS: ARFORMOTEROL 15 MCG/2 ML NEBU IH SCH ×2 (11:16→11:34)
--- NOTE | 2021-05-02 20:06 | Progress Note ---
Assessment and Plan - Patient Problems (1) Hypertension Status: Acute Qualifiers: Hypertension type: primary hypertension Qualified Code(s): I10 - Essential (primary) hypertension Plan to address problem: Monitor blood pressure every shift, continue medical management (2) Obesity (BMI 30.0-34.9) Status: Acute Plan to address problem: Balanced diet, increase physical activity at discharge, (3) CHF (congestive heart failure) Status: Acute Qualifiers: Heart failure chronicity: chronic Plan to address problem: Compensated, continue medical management, blood pressure control, outpatient cardiology follow-up. (4) Asthma Status: Acute Qualifiers: Asthma severity: mild Asthma persistence: intermittent Plan to address problem: Supportive care, benzodiazepine therapy as clinically indicated. (5) Depression Status: Acute Plan to address problem: Antidepressant therapy as per primary care team, supportive care. History Interval history: 60 YO Male with CHF, HTN, Gout, Asthma, Depression, Obesity admitted to [facility] for psychiatric stabilization. Patient seen and evaluated in his room. Patient denies shortness of breath, fever, or pain. No reported nursing events. Hospitalist Physical - Constitutional Vitals: Temp Pulse Resp BP Pulse Ox 98.2 F 60 18 107/52 92 05/02/21 06:45 05/02/21 11:16 05/02/21 11:16 05/02/21 09:44 05/02/21 06:45 General appearance: Present: no acute distress, obese - EENT Eyes: Present: PERRL ENT: hearing intact - Neck Neck: Present: supple - Respiratory Respiratory effort: normal Respiratory: bilateral: CTA - Cardiovascular Rhythm: regular Heart Sounds: Present: S1 & S2 - Extremities Extremities: no ischemia Peripheral Pulses: within normal limits - Abdominal General gastrointestinal: soft, non-tender, non-distended - Integumentary Integumentary: Present: clear, dry - Psychiatric Psychiatric: cooperative - Neurologic Neurologic: CNII-XII intact Results - Labs Labs: Laboratory Last Values POC Glucose 105 mg/dL (70-105) 04/27/21 20:15 Hemoglobin A1c 6.4 % (4-6) H 04/28/21 19:05 Triglycerides 84 mg/dL (2-149) 04/28/21 19:05 Cholesterol 142 mg/dL (50-199) 04/28/21 19:05 LDL Cholesterol Direct 105 mg/dL (50-130) 04/28/21 19:05 HDL Cholesterol 34 mg/dL (40-59) L 04/28/21 19:05 Cholesterol/HDL Ratio 4.17 % 04/28/21 19:05 Martinez/IV: Voiding Method Toilet Active Medications - Current Medications Current Medications: Generic Name Dose Route Start Last Admin Trade Name Freq PRN Reason Stop Dose Admin Albuterol 2.5 mg 04/28/21 12:00 Albuterol 2.5 Mg/3 Ml Nebu IH QIDRT PRN Wheezing Allopurinol 100 mg 04/28/21 11:00 05/02/21 09:43 Allopurinol 100 Mg Tab PO 100 mg DAILY [facility] Administration Arformoterol Tartrate 15 mcg 04/28/21 13:00 05/02/21 11:34 Arformoterol 15 Mcg/2 Ml Nebu IH Not Given Q12HRT [facility] Atorvastatin Calcium 40 mg 04/28/21 22:00 05/01/21 21:31 Atorvastatin 40 Mg Tab PO 40 mg QHS [facility] Administration Benztropine Mesylate 1 mg 04/27/21 22:00 05/01/21 21:31 Benztropine 1 Mg Tab PO 1 mg HS [facility] Administration Budesonide 0.5 mg 04/28/21 13:00 05/02/21 11:34 Budesonide 0.5 Mg/2 Ml Nebu IH Not Given Q12HRT [facility] Furosemide 40 mg 04/28/21 11:00 05/02/21 09:43 Furosemide 40 Mg Tab PO 40 mg DAILY [facility] Administration Lisinopril 20 mg 05/01/21 10:00 05/02/21 09:45 Lisinopril 20 Mg Tab PO Not Given QDAY [facility] Melatonin 5 mg 04/27/21 21:08 Melatonin 5 Mg Tab PO QHS PRN Sleep Metoprolol Tartrate 100 mg 04/27/21 22:00 05/02/21 09:44 Metoprolol Tartrate 100 Mg Tab PO Not Given BID [facility] Nitroglycerin 1 mg 04/28/21 11:00 Nitroglycerin 0.4 Mg Tab Subl SL PRN [facility] Ondansetron HCl 4 mg 04/28/21 10:44 Ondansetron 4 Mg Odt Tab PO Q8HR PRN Nausea Pantoprazole Sodium 40 mg 04/28/21 12:00 05/02/21 09:43 Pantoprazole 40 Mg Tab PO 40 mg DAILY [facility] Administration Risperidone 1 mg 05/01/21 22:00 05/02/21 09:43 Risperidone 1 Mg Tab PO 1 mg BID [facility] Administration Spironolactone 50 mg 04/28/21 11:00 05/02/21 09:44 Spironolactone 50 Mg Tab PO Not Given QDAY [facility] Trazodone HCl 50 mg 04/27/21 22:00 05/01/21 21:35 Trazodone 50 Mg Tab PO 50 mg QHS [facility] Administration
[2021-05-02] MEDS: BENZTROPINE 1 MG TAB PO SCH (22:02)
[2021-05-02] MEDS: traZODone 50 MG TAB PO SCH (22:03)
[2021-05-03] MEDS: PANTOPRAZOLE 40 MG TAB PO SCH (09:21)
[2021-05-03] MEDS: LISINOPRIL 20 MG TAB PO SCH (09:21)
[2021-05-03] MEDS: FUROSEMIDE 40 MG TAB PO SCH (09:21)
[2021-05-03] MEDS: risperiDONE 1 MG TAB PO SCH ×2 (09:21→21:57)
[2021-05-03] MEDS: SPIRONOLACTONE 50 MG TAB PO SCH (09:22)
[2021-05-03] MEDS: METOPROLOL TARTRATE 100 MG TAB PO SCH ×2 (09:22→21:57)
[2021-05-03] MEDS: allopurinoL 100 MG TAB PO SCH (09:23)
[2021-05-03] MEDS: traZODone 50 MG TAB PO SCH (21:57)
[2021-05-03] MEDS: BENZTROPINE 1 MG TAB PO SCH (21:57)
[2021-05-04] MEDS: SPIRONOLACTONE 50 MG TAB PO SCH (09:29)
[2021-05-04] MEDS: METOPROLOL TARTRATE 100 MG TAB PO SCH (09:30)
[2021-05-04] MEDS: FUROSEMIDE 40 MG TAB PO SCH (09:30)
[2021-05-04] MEDS: LISINOPRIL 20 MG TAB PO SCH (09:31)
[2021-05-04] MEDS: risperiDONE 1 MG TAB PO SCH (09:31)
[2021-05-04] MEDS: PANTOPRAZOLE 40 MG TAB PO SCH (09:31)
[2021-05-04] MEDS: allopurinoL 100 MG TAB PO SCH (09:32)
[2021-05-04 09:38] VITALS: BP 118/74
--- NOTE | 2021-05-04 09:49 | Progress Note ---
Subjective Date of service: 05/03/21 Principal diagnosis: Schizoaffective Disorder Subjective Comment: The patient was seen today, he is a wake and calm. He says he feels a little better today. He does appear slightly anxious and withdrawn. The patient denies SI/HI or hallucinations of any kind. The patient is clear from a psych standpoint. The patient had issues with transport. Will d/c tomorrow. REVIEW OF SYSTEMS Constitutional: Negative for weight loss ENT: Negative for stridor Respiratory: Negative for cough or hemoptysis All other systems reviewed and are negative MENTAL STATUS EXAMINATION General Appearance: Dressed appropriately, Behavior: Intrusive Mood: Irritable Affect and affective range: congruent with mood Thought Process: Tangential Speech: Low tone Thought content: Suicidal Ideation: Denies Homicidal Ideation: Denies Hallucinations: Denies Delusions: None elicited Insight and Judgment: Limited insight and judgment Memory: impaired Attention: Normal Orientation: Alert, oriented, anxious and confused Assessment Schizoaffective Disorder Treatment Plan Patient admitted for inpatient psychiatric evaluation, medication adjustment and close monitoring The patient's behavior, mood, sleep and appetite will be closely monitored. Patient enrolled in individual and group therapeutic sessions and encouraged to attend. Patient provided with a safe and structured environment. Patient's physical health needs will be addressed by the Hospitalist. Hospitalist Consulted Labs including CBC, CMP, Lipid profile and Hemoglobin A1C levels ordered for baseline reference Social Assessment will be completed and the Cloud Solutions Architect will work with patient and family to ensure a suitable and safe disposition Medication adjustment will be made as clinically indicated No changes made today Usual Wellness Orthodoxy/Preservation: - Start Trazodone 50 mg po QHS & 50 mg po QHS PRN between 10 PM & 2 AM for insomnia - Start Melatonin 5 mg po QHS to promote circadian rhythm - Start [place]-3 for brain health, reduce impulsivity, and as adjunctive treatment for mood disorder, continue upon discharge given overall benefits. - Start B1 prophylaxis with 200 mg po for 5 days The patient agreed on the treatment plan, understood the risk, benefit, alternative treatment, potential consequence of no treatment, and gave informed consent. Estimated days: 7 Post hospital care: primary care provider, psychiatric provider Medications and Allergies Allergies Allergy/AdvReac Type Severity Reaction Status Date / Time No Known Allergies Allergy Verified 05/10/19 10:18 Home Medications Medication Instructions Recorded Confirmed Last Taken Type allopurinoL [Zyloprim] 100 mg PO DAILY 06/13/20 04/27/21 Unknown History Paliperidone Palmitate [Invega 156 mg IM QMONTH #1 syringe 06/16/20 04/27/21 Unknown Rx Sustenna] Albuterol Sulfate [Proventil Hfa] 6.7 gm IH TID PRN #1 hfa.aer.ad 08/25/20 04/27/21 Unknown Rx Albuterol Mdi (or & Nicu Only) 2 puff IH QID PRN #8.5 gram 01/14/21 04/27/21 Unknown Rx [ProAir HFA Inhaler] Furosemide [Lasix] 40 mg PO DAILY 30 Days #30 tablet 01/14/21 04/27/21 Unknown Rx Omeprazole 40 mg PO DAILY #30 capsule. 01/14/21 04/27/21 Unknown Rx AtorvaSTATin [Lipitor] 40 mg PO QHS 04/26/21 04/27/21 Unknown History Benztropine Mesylate 1 tab PO QHS 04/26/21 04/27/21 Unknown History Budesonide/Formoterol Fumarate 1 puff INHALATION QDAY 04/26/21 04/27/21 Unknown History [Symbicort 80-4.5 Mcg Inhaler] Metoprolol [Lopressor TAB] 100 mg PO BID 04/26/21 04/27/21 Unknown History Nitroglycerin [Nitrostat] 1 mg SL PRN 04/26/21 04/27/21 Unknown History Ondansetron [Zofran ODT TAB] 4 mg PO Q8HR PRN 04/26/21 04/27/21 Unknown History Spironolactone [Aldactone] 50 mg PO QDAY 04/26/21 04/27/21 Unknown History lisinopriL [Zestril TAB] 20 mg PO QDAY 04/26/21 04/27/21 Unknown History Melatonin [Melatonin 5MG TAB] 5 mg PO QHS PRN #30 tablet 05/03/21 Unknown Rx risperiDONE [RisperDAL] 1 mg PO BID #60 tablet 05/03/21 Unknown Rx traZODone [Desyrel] 50 mg PO QHS #30 05/03/21 Unknown Rx Active Meds: Active Medications Albuterol (Albuterol 2.5 Mg/3 Ml Nebu) 2.5 mg IH QIDRT PRN PRN Reason: Wheezing Allopurinol (Allopurinol 100 Mg Tab) 100 mg PO DAILY [facility] Last Admin: 05/04/21 09:32 Dose: 100 mg Documented by: Arformoterol Tartrate (Arformoterol 15 Mcg/2 Ml Nebu) 15 mcg IH Q12HRT [facility] Last Admin: 05/02/21 11:34 Dose: Not Given Documented by: Atorvastatin Calcium (Atorvastatin 40 Mg Tab) 40 mg PO QHS [facility] Last Admin: 05/03/21 21:57 Dose: 40 mg Documented by: Benztropine Mesylate (Benztropine 1 Mg Tab) 1 mg PO HS [facility] Last Admin: 05/03/21 21:57 Dose: 1 mg Documented by: Budesonide (Budesonide 0.5 Mg/2 Ml Nebu) 0.5 mg IH Q12HRT [facility] Last Admin: 05/02/21 11:34 Dose: Not Given Documented by: Furosemide (Furosemide 40 Mg Tab) 40 mg PO DAILY [facility] Last Admin: 05/04/21 09:30 Dose: 40 mg Documented by: Lisinopril (Lisinopril 20 Mg Tab) 20 mg PO QDAY [facility] Last Admin: 05/04/21 09:31 Dose: 20 mg Documented by: Melatonin (Melatonin 5 Mg Tab) 5 mg PO QHS PRN PRN Reason: Sleep Metoprolol Tartrate (Metoprolol Tartrate 100 Mg Tab) 100 mg PO BID [facility] Last Admin: 05/04/21 09:30 Dose: 100 mg Documented by: Nitroglycerin (Nitroglycerin 0.4 Mg Tab Subl) 1 mg SL PRN [facility] Ondansetron HCl (Ondansetron 4 Mg Odt Tab) 4 mg PO Q8HR PRN PRN Reason: Nausea Pantoprazole Sodium (Pantoprazole 40 Mg Tab) 40 mg PO DAILY [facility] Last Admin: 05/04/21 09:31 Dose: 40 mg Documented by: Risperidone (Risperidone 1 Mg Tab) 1 mg PO BID [facility] Last Admin: 05/04/21 09:31 Dose: 1 mg Documented by: Spironolactone (Spironolactone 50 Mg Tab) 50 mg PO QDAY [facility] Last Admin: 05/04/21 09:29 Dose: 50 mg Documented by: Trazodone HCl (Trazodone 50 Mg Tab) 50 mg PO QHS [facility] Last Admin: 05/03/21 21:57 Dose: 50 mg Documented by: Results - Results Labs/Vitals: Laboratory Last Values POC Glucose 105 mg/dL (70-105) 04/27/21 20:15 Hemoglobin A1c 6.4 % (4-6) H 04/28/21 19:05 Triglycerides 84 mg/dL (2-149) 04/28/21 19:05 Cholesterol 142 mg/dL (50-199) 04/28/21 19:05 LDL Cholesterol Direct 105 mg/dL (50-130) 04/28/21 19:05 HDL Cholesterol 34 mg/dL (40-59) L 04/28/21 19:05 Cholesterol/HDL Ratio 4.17 % 04/28/21 19:05 Last Vital Signs Temp 98.0 F 05/03/21 19:41 Pulse 65 05/04/21 09:31 Resp 16 05/03/21 19:41 BP 118/74 05/04/21 09:31 Pulse Ox 92 05/03/21 19:41
--- NOTE | 2021-05-04 09:50 | Discharge Summary ---
Providers - Providers Date of Admission: 04/27/21 18:17 Date of discharge: 05/04/21 Attending physician: WILMER TEJADA MD 04/27/21 16:53 Consult to Physician [CONS] Routine Comment: Consulting Provider: SRUTHI RICH Physician Instructions: Reason For Exam: Medical management Primary care physician: MASONRY INSPECTOR Hospitalization Reason for admission: SI, hallucinations Admitting Diagnosis: F25.9 - SCHIZOAFFECTIVE DISORDER, UNSPECIFIED Condition: Stable Hospital course: The patient was provided inpatient psychiatric treatment with safe and supportive care, medication adjustment, adverse effect monitoring, medical evaluations, medical treatments, assessment and psycho-education. The patient's mood, cognition, behavior, moral support are improved and stabilized. St the time of discharge, the patient had no endangering behavior and no debilitating adverse effects. The patient agreed on potential consequences of no treatment and gave informed consent. Disposition: - TO HOME OR SELFCARE Time spent for discharge: 38 Allergies/Adverse Reactions: Allergies No Known Allergies Allergy (Verified 05/10/19 10:18) Vital Signs: Last Vital Signs Temp 98.0 F 05/03/21 19:41 Pulse 65 05/04/21 09:31 Resp 16 05/03/21 19:41 BP 118/74 05/04/21 09:31 Pulse Ox 92 05/03/21 19:41 Last Lab: Laboratory Last Values POC Glucose 105 mg/dL (70-105) 04/27/21 20:15 Hemoglobin A1c 6.4 % (4-6) H 04/28/21 19:05 Triglycerides 84 mg/dL (2-149) 04/28/21 19:05 Cholesterol 142 mg/dL (50-199) 04/28/21 19:05 LDL Cholesterol Direct 105 mg/dL (50-130) 04/28/21 19:05 HDL Cholesterol 34 mg/dL (40-59) L 04/28/21 19:05 Cholesterol/HDL Ratio 4.17 % 04/28/21 19:05 Core Measure Documentation - Palliative Care Palliative Care/ Comfort Measures: Not Applicable - Core Measures Any of the following diagnoses?: none Exam - Constitutional Vitals: Temp Pulse Resp BP Pulse Ox 98.0 F 65 16 118/74 92 05/03/21 19:41 05/04/21 09:31 05/03/21 19:41 05/04/21 09:31 05/03/21 19:41 General appearance: Present: no acute distress - EENT Eyes: Present: PERRL, EOM intact ENT: hearing intact, clear oral mucosa - Neck Neck: Present: supple, normal ROM - Respiratory Respiratory effort: normal Plan Activity: advance as tolerated Weight Bearing Status: Weight Bear as Tolerated Care Plan Goals: Maintain good and stable mental health Plan of Treatment: The patient should be compliant with medications, not to use drugs, and not to drink alcohol. The patient understands that if suicidal ideas, homicidal ideas or any endangering feeling arise, the patient should seek assistance including, but not limited to crisis hotline, and emergency room. Follow up with: PRIMARY CARE, [Primary Care Provider] - 7 Days Prescriptions: traZODone [Desyrel] 50 mg PO QHS #30 Melatonin [Melatonin 5MG TAB] 5 mg PO QHS PRN #30 tablet PRN Reason: Sleep risperiDONE [RisperDAL] 1 mg PO BID #60 tablet
== END 2021-05-04 12:05 | disposition home or self-care (01) | DRG 885 ==
LOC: UNDOADMIN 16:39 → 3A 16:39 → 5A 18:17
PROVIDERS: ADMIT Psychiatry & Neurology Psychiatry; ATTEND Psychiatry & Neurology Psychiatry
DX: F25.9 Schizoaffective disorder, unspecified (principal); I50.22 Chronic systolic (congestive) heart failure; E11.9 Type 2 diabetes mellitus without complications; I11.0 Hypertensive heart disease with heart failure; F17.200 Nicotine dependence, unspecified, uncomplicated; J45.909 Unspecified asthma, uncomplicated; E66.9 Obesity, unspecified; M10.9 Gout, unspecified; Z79.899 Other long term (current) drug therapy; Z79.84 Long term (current) use of oral hypoglycemic drugs; Z82.49 Family history of ischemic heart disease and other diseases of the circulatory system; Z68.37 Body mass index [BMI] 37.0-37.9, adult
CPT/HCPCS: 36415; 71045; 80053; 80061; 80307; 80320; 81001; 82962; 83036; 83735; 83880; 84484; 85025; 93005; 94640; 94644; G0378; G0480; J2426; U0003

== ENCOUNTER 2021-05-23 23:53 | Emergency (ER) | payer MEDICARE ==
[2021-05-24 02:18] LABS: Basophils % (Auto) 0.2 % (0.0-1.8); Eosinophils # (Auto) 0.1 K/mm3 (0.0-0.4); Eosinophils % (Auto) 1.8 % (0.0-4.3); Hemoglobin 12.4 gm/dl (11.8-15.2); Lymphocytes # (Auto) 1.6 K/mm3 (1.2-5.4); Lymphocytes % (Auto) 27.9 % (13.4-35.0); Mean Corpuscular HGB Conc 34 % (32-34); Mean Corpuscular Volume 92 fl (84-94); Monocytes # (Auto) 0.7 K/mm3 (0.0-0.8); Monocytes % (Auto) 12.4 % (0.0-7.3); Platelet Count 150 K/mm3 (140-440); Red Blood Count 3.91 M/mm3 (3.65-5.03); Red Cell Distribution Width 14.5 % (13.2-15.2)
[2021-05-24 02:39] LABS: Alanine Aminotransferase 14 units/L (7-56); Albumin 3.7 g/dL (3.9-5); BUN/Creatinine Ratio 16; Blood Urea Nitrogen 13 mg/dL (9-20); Calcium 8.6 mg/dL (8.4-10.2); Hemolysis Index 8
[2021-05-24 02:53] LABS: Bilirubin,Direct < 0.2 mg/dL (0-0.2)
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
[2021-05-24] MEDS ORDERED: LISINOPRIL 20 MG TAB PO SCH (10:00)
[2021-05-24] MEDS ORDERED: FUROSEMIDE 40 MG TAB PO SCH (10:00)
--- NOTE | 2021-05-24 10:27 | Event Note ---
Date: 05/24/21 60-year-old male who presents with suicidal ideation and auditory hallucinations. He was seen by my colleague and was medically cleared for psych iatric evaluation and placement. His vital signs have remained stable. There were no acute events overnight. His home medications were reconciled and he was started on his home blood pressure medication and Lasix. He is currently awaiting mental health/psychiatry team evaluation and placement.
--- NOTE | 2021-05-24 12:36 | Consultation ---
History of Present Illness - Reason for Consult Consult date: 05/24/21 Reason for consult: Suicidal ideation - History of Present Psychiatric Illness ED Note: 60-year-old male, history of depression, presents to ED with suicidal ideations. Patient states his plan is to drink poison. Patient also reporting some auditory hallucinations. Rajiv Valentine is a 60 year old male with history of Depression and Schizophrenia who presents to the ED for suicidal ideation with a plan to consume poison. In my interview with the patient, Patient presents with auditory and visual hallucinations. The patient reports that he does not want to go back to [facility] because things are not getting better. The patient reports that he stays angry " people are losers and I don't want to be around losers." The patient Denies any current suicidal/homicidal ideation. PAST PSYCHIATRIC HISTORY: Diagnoses: Schizophrenia, Depression Suicide attempts or Self-harm behavior: 1x Prior psychiatric hospitalizations: 2x Substance Abuse history: Denies Previous psychiatric medications tried: Invega and abilify Outpatient treatment: PAST MEDICAL HISTORY: Of diabetes, Hypertension, COPD CHF Family Psychiatric History: None reported or documented SOCIAL HISTORY Marital Status: Single Living Arrangements: [employer] Employment Status: Disabled Access to guns/weapons: none reported Education: 3 year College History of Abuse: none reported Legal History:None reported REVIEW OF SYSTEMS Constitutional: Negative for weight loss ENT: Negative for stridor Respiratory: Negative for cough or hemoptysis All other systems reviewed and are negative MENTAL STATUS EXAMINATION General Appearance: Dressed appropriately, Behavior: cooperative Mood: Irritable Affect and affective range: congruent with mood Thought Process: Tangential Speech: Talkative Thought content:Obsessions Suicidal Ideation: Denies SI Homicidal Ideation: Denies HI Hallucinations: Auditory/Visual Delusions: Insight and Judgment: Limited insight and judgment Memory: impaired Attention: Normal Orientation: Alert, oriented, anxious and confused Assessment Diagnoses: (1)Schizophrenia- F20.9 Treatment Plan Start Depakote 250mg po BID Start Abilify 5mg po daily Start Trazodone 50mg po QHS PSYCHOTHERAPY: Supportive psychotherapy provided MEDICAL: Per primary team DELIRIUM PRECAUTIONS: Please re-orient patient frequently, keep lights on during the day, and minimize benzodiazepines and opiates as these medications could worsen patient's confusion. CONFIGURATION MANAGEMENT ADVISOR: Per medical team DISPOSITION: Recommend acute psychiatric inpatient treatment Will follow. Please contact with any questions and/or concerns. Thank you for the consult. Case staffed with Dr. Lindsay Medications and Allergies Allergies Allergy/AdvReac Type Severity Reaction Status Date / Time No Known Allergies Allergy Verified 05/10/19 10:18 Home Medications Medication Instructions Recorded Confirmed Last Taken Type Paliperidone Palmitate [Invega 156 mg IM QMONTH #1 syringe 06/16/20 05/24/21 Unknown Rx Sustenna] Albuterol Sulfate [Proventil Hfa] 6.7 gm IH TID PRN #1 hfa.aer.ad 08/25/20 05/24/21 Unknown Rx Albuterol Mdi (or & Nicu Only) 2 puff IH QID PRN #8.5 gram 01/14/21 05/24/21 Unknown Rx [ProAir HFA Inhaler] Furosemide [Lasix] 40 mg PO DAILY 30 Days #30 tablet 01/14/21 05/24/21 Unknown Rx AtorvaSTATin [Lipitor] 40 mg PO QHS 04/26/21 05/24/21 Unknown History Benztropine Mesylate 1 tab PO QHS 04/26/21 05/24/21 Unknown History Budesonide/Formoterol Fumarate 1 puff INHALATION QDAY 04/26/21 05/24/21 Unknown History [Symbicort 80-4.5 Mcg Inhaler] lisinopriL [Zestril TAB] 20 mg PO QDAY 04/26/21 05/24/21 Unknown History Active Meds: Active Medications Atorvastatin Calcium (Atorvastatin 40 Mg Tab) 40 mg PO QHS [facility] Furosemide (Furosemide 40 Mg Tab) 40 mg PO DAILY [facility] Last Admin: 05/24/21 11:42 Dose: 40 mg Documented by: Lisinopril (Lisinopril 20 Mg Tab) 20 mg PO QDAY [facility] Last Admin: 05/24/21 11:42 Dose: 20 mg Documented by: Mental Status Exam - Vital signs Last Vital Signs Temp 98.0 F 05/24/21 07:59 Pulse 63 05/24/21 07:59 Resp 16 05/24/21 07:59 BP 144/70 05/24/21 07:59 Pulse Ox 96 05/24/21 07:59 Results Result Diagrams: 05/24/21 02:01 05/24/21 02:01 Abnormal lab results 05/24/21 05/24/21 05/24/21 Range/Units 02:01 02:01 02:01 [place] % (Auto) 12.4 H (0.0-7.3) % Glucose 113 H (75-100) mg/dL Total Protein 6.2 L (6.3-8.2) g/dL Albumin 3.7 L (3.9-5) g/dL Salicylates < 0.3 L (2.8-20.0) mg/dL Acetaminophen (10.0-30.0) ug/mL 05/24/21 Range/Units 02:01 [place] % (Auto) (0.0-7.3) % Glucose (75-100) mg/dL Total Protein (6.3-8.2) g/dL Albumin (3.9-5) g/dL Salicylates (2.8-20.0) mg/dL Acetaminophen 5.0 L (10.0-30.0) ug/mL All other labs normal.
[2021-05-24] MEDS ORDERED: ARIPiprazole 5 MG TAB PO SCH (14:00)
[2021-05-24] MEDS ORDERED: DIVALPROEX DR 250 MG TAB PO SCH (14:00)
[2021-05-24 14:59] LABS: Amphetamine Screen,Urine PRESUMPTIVE NEGATIVE; Benzodiazepines Screen,Urine PRESUMPTIVE NEGATIVE; Bilirubin,Urine NEG (Negative); Blood,Urine MOD (Negative); Cannabinoid Screen,Urine PRESUMPTIVE NEGATIVE; Cocaine Screen,Urine PRESUMPTIVE NEGATIVE; Color,Urine Yellow (Yellow); Methadone Screen,Urine PRESUMPTIVE NEGATIVE; Mucus,Urine FEW /HPF; Opiate Screen,Urine PRESUMPTIVE NEGATIVE; Protein,Urine <15 mg/dL mg/dL (Negative)
[2021-05-24 21:15] VITALS: BP 129/72
[2021-05-24] MEDS ORDERED: traZODone 50 MG TAB PO SCH (22:00)
== END 2021-05-24 22:44 ==
LOC: ED 23:53
DX: F32.9 Major depressive disorder, single episode, unspecified (principal); I11.0 Hypertensive heart disease with heart failure; I50.9 Heart failure, unspecified; K21.9 Gastro-esophageal reflux disease without esophagitis; J44.9 Chronic obstructive pulmonary disease, unspecified; Z98.890 Other specified postprocedural states; Z79.899 Other long term (current) drug therapy
CPT/HCPCS: 36415; 80048; 80076; 80307; 81001; 85025; 99285; A9270; 80320; G0480

== ENCOUNTER 2021-06-22 12:31 | Emergency (ER) | payer MEDICARE ==
[2021-06-22 13:17] VITALS: BP 132/76
[2021-06-22 16:48] LABS: Basophils % (Auto) 0.5 % (0.0-1.8); Eosinophils # (Auto) 0.1 K/mm3 (0.0-0.4); Eosinophils % (Auto) 1.1 % (0.0-4.3); Hemoglobin 13.8 gm/dl (11.8-15.2); Lymphocytes # (Auto) 2.4 K/mm3 (1.2-5.4); Lymphocytes % (Auto) 29.3 % (13.4-35.0); Mean Corpuscular HGB Conc 34 % (32-34); Mean Corpuscular Volume 93 fl (84-94); Monocytes % (Auto) 12.5 % (0.0-7.3); Platelet Count 186 K/mm3 (140-440); Red Cell Distribution Width 14.9 % (13.2-15.2)
[2021-06-22 17:07] LABS: Alanine Aminotransferase 19 units/L (7-56); BUN/Creatinine Ratio 11; Blood Urea Nitrogen 9 mg/dL (9-20); Calcium 9.1 mg/dL (8.4-10.2); Hemolysis Index 41
--- NOTE | 2021-06-22 17:25 | Event Note ---
ED Screening Note Date of service: 06/22/21 Time: 17:23 ED Screening Note: 60-year-old male patient with history of congestive heart failure presents to the emergency department with complaints of lower abdominal, testicular, and leg pain worsening last week. No preceding fall, trauma, or injury. Tachycardic in triage. General: Awake, appropriately interactive, no acute distress. Neck: Supple. Full range of motion intact. Cardiovascular: Normal peripheral perfusion. Pulmonary: No respiratory distress. Patient is speaking normally without use of accessory muscles. Skin: No apparent rashes or lesions. Neurological: No facial asymmetry. Speech is clear. Follows commands. Patient is alert and oriented. Musculoskeletal: Moves all four extremities spontaneously with normal range of motion. Psych: Cooperative. Appropriate mood and affect. Initial labs ordered. Imaging deferred to additional ED providers following full history and comprehensive physical exam. I have greeted and performed a focused rapid initial assessment of this patient. A comprehensive ED assessment and evaluation of the patient, analysis of all test results, and completion of the medical decision-making process will be conducted by additional ED providers. This initial assessment/diagnostic orders/clinical plan/treatment(s) is/are subject to change based on patients health status, clinical progression and re-assessment. Further treatment and workup at subsequent clinical provider's discretion. Patient/guardian urged not to elope from the ED as their condition may be serious if not clinically assessed and managed.
--- NOTE | 2021-06-22 17:50 | XRay Report ---
CHEST 1 VIEW 06/22/2021 4:44 PM INDICATION / CLINICAL INFORMATION: Lower extremity/testicular pain/swelling; history of CHF. COMPARISON: 04/26/21. FINDINGS: SUPPORT DEVICES: None. HEART / MEDIASTINUM: The heart size and pulmonary vasculature are normal. LUNGS / PLEURA: No significant pulmonary or pleural abnormality. No pneumothorax. ADDITIONAL FINDINGS: No significant additional findings. IMPRESSION: No acute findings. There is no evidence of congestive heart failure. Signer Name: Werner Pop MD Signed: 06/22/2021 5:46 PM Workstation Name: [id number]
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
--- NOTE | 2021-06-23 03:08 | Cat Scan Report ---
CT ABDOMEN AND PELVIS WITH CONTRAST HISTORY: Pt complains of lower abd and Testicular pain. COMPARISON: None. TECHNIQUE: CT images of the abdomen and pelvis were obtained following administration of intravenous contrast. All CT scans at this location are performed using CT dose reduction for ALARA by means of automated exposure control. CONTRAST: 100 ml of intravenous contrast administered. FINDINGS: Lungs/bones: Lung bases are clear. No acute osseous abnormality. Abdomen/pelvis: The liver, gallbladder, spleen, pancreas, adrenals, left kidney, and proximal GI tra ct appear unremarkable. There is a small simple cyst in the midpole the right kidney. There is an irregular ventral wall hernia containing a knuckle of small bowel. No obstruction or sign ificant inflammatory change to suggest incarceration. Some of the hernia also contains fat in this re gion. The urinary bladder and prostate are unremarkable with no pelvic free fluid. There is no acute coloni c abnormality. The appendix is normal. IMPRESSION: 1. Irregular ventral wall hernia in the midline containing fat and a knuckle of small bowel without o bstruction or incarceration. 2. Simple cyst right kidney. Signer Name: Tomás Tipton MD Signed: 06/23/2021 3:04 AM Workstation Name: [id number]
--- NOTE | 2021-06-23 03:27 | Ultrasound Report ---
Scrotal Ultrasound HISTORY: test pain. TECHNIQUE: Grayscale and color imaging performed. COMPARISON: None FINDINGS: Right testicle measures 3.1 x 2.5 x 2.8 cm with normal appearance and preserved blood flow. Epididymal head is normal. The left testicle measures 3.8 x 2.7 x 2.8 cm with preserved blood flow. There is a small hydrocele. The epididymal head is normal. IMPRESSION: Small left-sided hydrocele. Signer Name: Tomás Tipton MD Signed: 06/23/2021 3:23 AM Workstation Name: [id number]
== END 2021-06-23 06:23 | disposition home or self-care (01) ==
LOC: ED 12:31
DX: N45.1 Epididymitis (principal); F20.9 Schizophrenia, unspecified; I10 Essential (primary) hypertension; I50.9 Heart failure, unspecified
CPT/HCPCS: 36415; 71045; 74177; 80053; 83690; 83735; 83880; 85025; 93975; 99284; Q9967

== ENCOUNTER 2022-01-25 20:45 | Emergency (ER) | payer MEDICARE ==
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
[2022-01-26] MEDS ORDERED: IBUPROFEN 600 MG TAB PO ONE (02:12)
[2022-01-26 03:25] LABS: Bilirubin,Urine NEG (Negative); Blood,Urine MOD (Negative); Color,Urine Amber (Yellow); Hyaline Casts,Urine 9 /LPF; Mucus,Urine 3+ /HPF; Protein,Urine <15 mg/dL mg/dL (Negative)
[2022-01-26 07:05] VITALS: BP 142/68
== END 2022-01-26 07:05 | disposition home or self-care (01) ==
LOC: ED 20:45
DX: R60.0 Localized edema (principal); R10.30 Lower abdominal pain, unspecified; Z91.19 Patient's noncompliance with other medical treatment and regimen; I10 Essential (primary) hypertension; K21.9 Gastro-esophageal reflux disease without esophagitis; N20.0 Calculus of kidney; J44.9 Chronic obstructive pulmonary disease, unspecified; Z79.899 Other long term (current) drug therapy
CPT/HCPCS: 81001; 99283

== ENCOUNTER 2022-02-06 19:26 | Emergency (ER) | payer MEDICARE ==
[2022-02-06 20:33] VITALS: BP 124/82
--- NOTE | 2022-02-06 21:05 | Event Note ---
ED Screening Note Date of service: 02/06/22 Time: 21:03 ED Screening Note: 61-year-old black male with a past medical history of CHF presents to the emergency department for evaluation of few day history of cough, congestion, cramping and tightness in chest, cramping to legs. He states that he is not taking his Lasix in over 2 weeks and he feels like he has fluid all over his body. This initial assessment/diagnostic orders/clinical plan/treatment(s) is/are subject to change based on patients health status, clinical progression and re- assessment by fellow clinical providers in the ED. Further treatment and workup at subsequent clinical providers discretion. Patient/guardian urged not to elope from the ED as their condition may be serious if not clinically assessed and managed. Initial orders include: CBC, CMP, BNP, troponin, EKG, and chest x-ray.
--- NOTE | 2022-02-06 21:34 | XRay Report ---
CHEST 2 VIEWS INDICATION / CLINICAL INFORMATION: chest pain. COMPARISON: None available. FINDINGS: SUPPORT DEVICES: None. HEART / MEDIASTINUM: No significant abnormality. LUNGS / PLEURA: No significant pulmonary or pleural abnormality. No pneumothorax. ADDITIONAL FINDINGS: No significant additional findings. IMPRESSION: 1. No acute findings. Signer Name: David Mccrary MD Signed: 02/06/2022 9:30 PM Workstation Name: [id number]
[2022-02-06 21:38] LABS: Basophils % (Auto) 0.4 % (0.0-1.8); Eosinophils # (Auto) 0.1 K/mm3 (0.0-0.4); Hematocrit 42.3 % (35.5-45.6); Lymphocytes # (Auto) 1.7 K/mm3 (1.2-5.4); Lymphocytes % (Auto) 23.8 % (13.4-35.0); Mean Corpuscular HGB Conc 33 % (32-34); Mean Corpuscular Volume 95 fl (84-94); Monocytes # (Auto) 0.8 K/mm3 (0.0-0.8); Monocytes % (Auto) 10.9 % (0.0-7.3); Platelet Count 191 K/mm3 (140-440); Red Blood Count 4.48 M/mm3 (3.65-5.03); Red Cell Distribution Width 13.9 % (13.2-15.2)
[2022-02-06 22:00] LABS: Alanine Aminotransferase 15 units/L (7-56); Albumin 4.3 g/dL (3.9-5); Blood Urea Nitrogen 9 mg/dL (9-20); Calcium 9.5 mg/dL (8.4-10.2); Hemolysis Index 9
[2022-02-06 22:05] LABS: BUN/Creatinine Ratio 13
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
--- NOTE | 2022-02-07 14:28 | Electrocardiograph Report ---
[facility] Test Date: 2022-02-06 Test Time: 21:10:44 Pat Name: GERMANIA PEÑA Department: Room: Gender: M [employer] Operator: VINH : 1960 Requested By: EMILY AUGUSTINE Order Number: [id number] Reading MD: Pamela Cool Measurements Intervals Nenzel Rate: 82 P: 93 AL: 158 QRS: 42 QRSD: 90 T: 10 QT: 398 QTc: 464 Interpretive Statements Sinus rhythm Compared to ECG 04/26/2021 21:32:59 No significant changes Electronically Signed On 02-07-2022 14:27:51 EDT by Pamela Cool
== END 2022-02-07 00:43 | disposition home or self-care (01) ==
LOC: ED 19:26
DX: R07.9 Chest pain, unspecified (principal); R05.9 Cough, unspecified; K21.9 Gastro-esophageal reflux disease without esophagitis; I10 Essential (primary) hypertension
CPT/HCPCS: 36415; 71046; 80053; 83880; 84484; 85025; 93005; 99283

== ENCOUNTER 2022-03-09 15:25 | Emergency (ER) | payer MEDICARE ==
[2022-03-09 16:56] LABS: Basophils # (Auto) 0.1 K/mm3 (0.0-0.1); Basophils % (Auto) 1.1 % (0.0-1.8); Eosinophils # (Auto) 0.1 K/mm3 (0.0-0.4); Eosinophils % (Auto) 0.6 % (0.0-4.3); Hematocrit 40.6 % (35.5-45.6); Hemoglobin 13.6 gm/dl (11.8-15.2); Lymphocytes # (Auto) 1.8 K/mm3 (1.2-5.4); Lymphocytes % (Auto) 19.4 % (13.4-35.0); Mean Corpuscular HGB Conc 34 % (32-34); Mean Corpuscular Volume 94 fl (84-94); Monocytes # (Auto) 0.8 K/mm3 (0.0-0.8); Monocytes % (Auto) 8.6 % (0.0-7.3); Platelet Count 194 K/mm3 (140-440); Red Blood Count 4.35 M/mm3 (3.65-5.03); Red Cell Distribution Width 13.6 % (13.2-15.2)
[2022-03-09 17:09] LABS: BUN/Creatinine Ratio 8; Blood Urea Nitrogen 8 mg/dL (9-20); Hemolysis Index 64
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
[2022-03-10 05:05] VITALS: BP 138/77
== END 2022-03-10 05:05 | disposition home or self-care (01) ==
LOC: ED 15:25
DX: G62.9 Polyneuropathy, unspecified (principal); I10 Essential (primary) hypertension
CPT/HCPCS: 36415; 80048; 85025; 99283

== ENCOUNTER 2022-03-13 14:41 | Outpatient (CLI) | payer MEDICARE ==
[2022-03-13 15:49] LABS: Albumin 4.4 g/dL (3.9-5); Calcium 9.3 mg/dL (8.4-10.2)
== END 2022-03-13 14:42 | disposition home or self-care (01) ==
LOC: LAB 14:41
PROVIDERS: ATTEND Student in an Organized Health Care Education/Training Program
DX: E78.5 Hyperlipidemia, unspecified (principal)
CPT/HCPCS: 36415; 80053

== ENCOUNTER 2022-04-10 12:40 | Emergency (ER) | payer MEDICARE ==
[2022-04-10 13:50] VITALS: BP 102/70
== END 2022-04-10 16:00 ==
LOC: ED 12:40
DX: K13.79 Other lesions of oral mucosa (principal); Z53.21 Procedure and treatment not carried out due to patient leaving prior to being seen by health care provider